=== PATIENT | female | born 1950 | race Caucasian/White ===

== ENCOUNTER 2018-07-06 15:43 | Emergency (ER) | payer MEDICARE, SELFPAY ==
[2018-07-06 15:47] VITALS: BP 150/77; PULSE 87; RESP 18; TEMP 36.7; O2SAT 97; BMI 47.3
[2018-07-06] MEDS: Acetaminophen 500 MG Tablet 1000 MG PO (16:06)
--- NOTE | 2018-07-06 16:24 | RAD_ITS ---
STUDY: X-RAY - LEFT FEMUR REASON FOR STUDY: Female, 67 years old. Pain after a fall TECHNIQUE: 4 view(s) of the femur. COMPARISON: None. FINDINGS: Normal visualized femur. Normal visualized soft tissue structure. 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
--- NOTE | 2018-07-06 16:24 | RAD_ITS ---
STUDY: X-RAY - LEFT HIP REASON FOR EXAM: Female, 67 years old. Pain after fall TECHNIQUE: 3 views of the hip. COMPARISON: None. FINDINGS: Bilateral SI joint arthrosis Normal femoral head, neck, intertrochanteric region and visualized proximal femur. Normal acetabulum. There is moderate articular joint space narrowing. Normal visualized superior and inferior pubic rami and ischial tuberosities. Similar arthritic changes noted in the right hip. RAD/HIP, UNI W/ Pelvis 2-3 Views IMPRESSION: Bilateral hip and SI joint arthrosis. No demonstrated fracture. However, hip and pelvic fractures in patients of this age can be subtle, if there are strong clinical suspicion of a fracture, recommend further evaluation with CT Electronically Signed: Jarred Rojas MD at 16:54 EST , Service support ,
--- NOTE | 2018-07-06 16:24 | RAD_ITS ---
STUDY: X-RAY - LEFT KNEE REASON FOR EXAM: Female, 67 years old. Pain after a fall TECHNIQUE: 3 view(s) of the knee. COMPARISON: None. FINDINGS: Normal visualized distal femur. Normal visualized proximal tibia and fibula. Normal proximal tibiofibular articulation. There is moderate degenerative arthrosis of the medial femorotibial compartment with moderate joint space narrowing. Normal lateral femorotibial compartment. There is mild degenerative arthrosis of the patellofemoral articulation. The soft tissue structures are unremarkable. RAD/Knee 3 Views IMPRESSION: Degenerative arthrosis. Electronically Signed: Jarred Rojas MD at 16:53 EST , Service support ,
--- NOTE | 2018-07-06 16:42 | ED.DCSUM_ITS ---
- ER Visit Summary Date of Service: 07/06/18 Chief Complaint: Left leg injury History of Present Illness: The patient is a 67 F presenting for evaluation secondary to left leg injury. Patient reports that she was going over a threshold and slipped, and went to [employer] when she fell. Patient reports that she has pain in her left leg and thigh. She was able to get to her knees, as it was actually able to ambulate a short distance. She states that pain seems to get worse when she twists about her knee. Denies any numbness or weakness. She denies hitting her head or loss of consciousness. She is not any sort of anticoagulants. Review of systems otherwise negative. Physical Examination: Primary survey: Airway is patent, breath sounds equal bilateral, central peripheral pulses 2+ and symmetric, GCS 15 out of 15. Vitals within normal limits. Secondary survey: General: Well-nourished well-developed no acute distress Head: Normocephalic atraumatic Eyes: PERRLA, EOMI ENT: Atraumatic Neck: Nontender full range of motion, no step-offs noted Heart: Regular rate and rhythm no murmurs Lungs: Respirations nondistressed, lung sounds clear to auscultation bilaterally, chest nontender, normal chest excursion bilaterally Abdomen: Soft nontender nondistended normal bowel sounds no palpable abdominal masses Back: Nontender no step-offs noted Extremities: Left lower extremity shows tenderness to palpation in the posterior thigh with soft compartments. No pain with logroll. Normal flexion and extension of the hip flexion extension the knee dorsiflexion plantarflexion of the foot. Normal sensation distally. Normal pulses. Skin: Normal color no trauma Neuro: Alert and oriented ?4, GCS 15 out of 15, no lateralizing neurological deficits. Test Results: Left-sided hip femur and knee x-rays are negative by my personal review and radiology Emergency Department Course and Treatment: Patient presented secondary to mechanical fall. Primary and secondary surveys showed only injury to the left lower extremity. X-rays were obtained and were found to be negative. Patient was ambulated with walker in the emergency department and given Tylenol. She was able to ambulate, and she had some symptomatic improvement. At this point I believe the patient can safely be discharged. She will be discharged with instructions to use Tylenol and ibuprofen for pain, to use her walker for stability and to follow-up with her primary care physician. Disposition: Discharge Impression: 1. Left thigh strain This note was generated with [employer] dictation software. It may contain incorrect words, spelling, and punctuation that were not noted in review of the chart prior to signing ED Disposition - Plan for ED Patient: Disposition: Home or Assisted Living Chief Complaint: Lower Extremity Injury Diagnosis: Strain of left hip and thigh Instructions: ED Strain Muscle Ext Referrals: Jad Pederson MD [Primary Care Provider] - 3-5 Days if not improving
[2018-07-06 18:05] VITALS: PULSE 81; RESP 18; O2SAT 99
== END 2018-07-06 18:06 | disposition home or self-care (01) ==
PROVIDERS: Emergency Provider Emergency Medicine; Family Provider Family Medicine; PCP Family Medicine
DX: S76.312A Strain of muscle, fascia and tendon of the posterior muscle group at thigh level, left thigh, initial encounter (principal); W01.0XXA Fall on same level from slipping, tripping and stumbling without subsequent striking against object, initial encounter; Y93.89 Activity, other specified; Y92.9 Unspecified place or not applicable; I10 Essential (primary) hypertension; K21.9 Gastro-esophageal reflux disease without esophagitis; Z79.899 Other long term (current) drug therapy
CPT/HCPCS: 73502; 73552; 73562; 99284

== ENCOUNTER 2025-04-02 17:11 | Emergency (ER) | payer MEDICARE, SELFPAY ==
[2025-04-02 17:12] VITALS: BP 163/151; PULSE 80; RESP 14; TEMP 36.4; O2SAT 98; BMI 39.2
[2025-04-02 17:23] VITALS: BP 167/82; PULSE 79; RESP 14; O2SAT 96
--- NOTE | 2025-04-02 17:29 | ED.RN ---
PT. FRIEND JACKSON CALLED AT THIS TIME AND PROVIDED W/ AN UPDATE PER PT. REQUEST.
--- OUTSIDE RECORDS SUMMARY | 2025-04-02 18:38 | XMS RPT_ITS | CCD ---
Author Organization [facility] Inform ion Partnership [facility] Care Team Providers Care Curber Name Role Phone STEF, DR HANNAH Bahena Attending Unavaila ble STEF, DR HANNAH Bahena Primary Care Unavaila ble STEF, DR HANNAH Bahena Admitting Unavaila ble STEF, DR HANNAH Bahena Attending Unavaila ble STEF, DR HANNAH Bahena Primary Care Unavaila ble STEF, DR HANNAH Bahena Admitting Unavaila SULEIMAN Villeda MD Primary Care Physician SULEIMAN PRESTON MD Primary Care Unavailable SULEIMAN PRESTON MD Attending Unavailable SLUEIMAN PRESTON MD Attending Unavailable SULEIMAN PRESTON MD Primary Care Unavailable SULEIMAN PRESTON MD Primary Care Unavailable SULEIMAN PRESTON MD Attending Unavailable SULEIMAN PRESTON MD Primary Care Unavailable GLENYS ALLEN DO Attending Unavailable SULEIMAN PRESTON MD Attending Unavailable SULEIMAN PRESTON MD Primary Care Unavailable SULEIMAN PRESTON MD Primary Care Unavailable SULEIMAN PRESTON MD Attending Unavailable SULEIMAN PRESTON MD Attending Unavailable SULEIMAN PRESTON MD Primary Care Unavailable Allergies Allergy Classification Reported Allergen(s) Allergy Type Date of Onset Reaction(s) Facility (8 sources) Sulfonamides (Antibiotic); Translations: [sulfa drugs] Drug allergy as a child unsure of reaction [facility] Work Phone: Medications Current Medications Medication Drug Class(es) Dates Sig (Normalized) Sig (Original) amLODIPine 5 mg oral tablet (7 sources) Dihydropyridine Calcium Channel Teresa Start: 02-06-2024 take 1 tablet by mouth once daily amLODIPine 5 mg oral tablet See Instructions, TAKE ONE TABLET BY MOUTH EVERY DAY, # 100 tab(s), 1 Refill(s), Pharmacy: [facility], 160, cm, 09/07/23 13:39:00 EDT, Height, kg, 09/07/23 13:39:00 EDT, Dosing Weight Start Date: 02/06/24 Status: Ordered Start: 01-27-2023 take 1 tablet by tim th once daily amLODIPine 5 mg oral tablet See Instructions, TAKE ONE TABLET BY MOUTH EVERY DAY, # 90 tab(s), 1 Refill(s), Pharmacy: [facility], 160, cm, 10/26/22 17:13:00 EDT, Height, kg, 10/26/22 17:13:00 EDT, Dosing Weight Start Date: 01/27/23 Status: Ordered Start: 07-26-2022 take 1 tablet by tim th once daily amLODIPine 5 mg oral tablet See Instructions, TAKE ONE TABLET BY MOUTH EVERY DAY, # 90 tab(s), 1 Refill(s), Pharmacy: [place] [id number], 160, cm, 05/10/22 14:09:00 EST, Height, kg, 05/10/22 14:09:00 EST, Dosing Weight Start Date: 07/26/22 Status: Ordered Start: 04-19-2022 take 1 tablet by tim th once daily amLODIPine 5 mg oral tablet See Instructions, TAKE ONE TABLET BY MOUTH EVERY DAY, # 90 tab(s), 0 Refill(s), Pharmacy: [place] [id number], 160, cm, 03/30/22 16:17:00 EDT, Height, kg, 03/30/22 16:17:00 EDT, Dosing Weight Start Date: 04/19/22 Status: Ordered Start: 10-08-2021 take 1 tablet by tim th once daily amLODIPine 5 mg oral tablet See Instructions, TAKE ONE TABLET BY MOUTH EVERY DAY, # 90 tab(s), 0 Refill(s), Pharmacy: [facility], 159, cm, 09/30/21 13:45:00 EDT, Height, kg, 09/30/21 13:45:00 EDT, Dosing Weight Start Date: 10/08/21 Status: Ordered Start: 03-22-2021 take 1 tablet by tim th once daily amLODIPine 5 mg oral tablet See Instructions, TAKE ONE TABLET BY MOUTH EVERY DAY, # 90 tab(s), 0 Refill(s), Pharmacy: [facility], 160, cm, 03/22/21 13:16:00 EDT, Height, kg, 03/22/21 13:16:00 EDT, Dosing Weight Start Date: 03/22/21 Status: Ordered aspirin 81 mg delayed release oral tablet (8 sources) Platelet Aggregation Inhibitor, Nonsteroidal Anti-inflammatory Drug Start: 04-03-2019 aspirin 81 mg ora l delayed release tablet Dose : 81 mg = 1 tab(s), Oral, qDay, # 90 tab(s), 0 Refill(s) Start Date: 04/03/19 Status: Ordered Medication Dispense Status: Completed Quantity: 90.0 Unit: tab(s) Total Allowed Fills: 1 Fills Dispensed: 0 citalopram 40 mg oral tablet (8 sources) Serotonin Reuptake Inhibitor Start: 08-06-2024 citalopram 40 mg oral tablet Dose : 40 mg = 1 tab(s), Oral, qDay, # 90 tab(s), 3 Refill(s), Pharmacy: [facility], 160, cm, 03/07/24 14:31:00 EDT, Height, kg, 03/07/24 14:31:00 EDT, Dosing Weight Start Date: 08/06/24 Status: Ordered Medication Dispense Status: Completed Quantity: 90.0 Unit: tab(s) Total Allowed Fills: 4 Fills Dispensed: 0 Start: 08-01-2023 citalopram 40 mg oral tablet Dose : 40 mg = 1 tab(s), Oral, qDay, # 90 tab(s), 3 Refill(s), Pharmacy: [facility], 160, cm, 07/26/23 13:53:00 EST, Height, kg, 07/26/23 13:53:00 EST, Dosing Weight Start Date: 08/01/23 Status: Ordered Start: 07-26-2022 citalopram 40 mg oral tablet Dose : 40 mg = 1 tab(s), Oral, qDay, # 90 tab(s), 3 Refill(s), Pharmacy: [facility], 160, cm, 05/10/22 14:09:00 EST, Height, kg, 05/10/22 14:09:00 EST, Dosing Weight Start Date: 07/26/22 Status: Ordered Start: 06-30-2021 citalopram 40 mg oral tablet Dose : 40 mg = 1 tab(s), Oral, qDay, # 90 tab(s), 3 Refill(s), Pharmacy: [facility], 160, cm, 03/22/21 13:16:00 EDT, Height, kg, 03/22/21 13:16:00 EDT, Dosing Weight Start Date: 06/30/21 Status: Ordered Elderberry preparation (3 sources) Start: 03-09-2023 take 1 mg by mouth once daily elderberry See Instructions, mg Oral qDay, 0 Refill(s) Start Date: 03/09/23 Status: Ordered Medication Dispense Status: Completed Total Allowed Fills: 1 Fills Dispensed: 0 Start: 03-09-2023 take 1 mg by mouth once daily elderberry See Instructions, mg Oral qDay, 0 Refill(s) Start Date: 03/09/23 Status: Ordered hydroCHLOROthiazide 12.5 mg oral capsule (6 sources) Thiazide Diuretic Start: 09-21-2021 End: 09-01-2024 hydroCHLOROthiazide 12.5 mg oral capsule Dose : 12.5 mg = 1 cap(s), Oral, Daily, # 90 cap(s), 3 Refill(s), Pharmacy: [facility], Benign essential hypertension GERD (gastroesophageal reflux disease), 160, cm, 09/07/23 13:39:00 EDT, Height, kg, 09/07/23 13:39:00 EDT, Dosing Weight Start Date: 09/07/23 Stop Date: 09/01/24 Status: Ordered lisinopril 20 mg oral tablet (8 sources) Angiotensin Converting Enzyme Inhibitor Start: 08-06-2024 lisinopril 20 mg oral tablet Dose : 20 mg = 1 tab(s), Oral, qDay, # 90 tab(s), 3 Refill(s), Pharmacy: [facility], 160, cm, 03/07/24 14:31:00 EDT, Height, kg, 03/07/24 14:31:00 EDT, Dosing Weight Start Date: 08/06/24 Status: Ordered Medication Dispense Status: Completed Quantity: 90.0 Unit: tab(s) Total Allowed Fills: 4 Fills Dispensed: 0 Start: 08-01-2023 lisinopril 20 mg oral tablet Dose : 20 mg = 1 tab(s), Oral, qDay, # 90 tab(s), 3 Refill(s), Pharmacy: [facility], 160, cm, 07/26/23 13:53:00 EST, Height, kg, 07/26/23 13:53:00 EST, Dosing Weight Start Date: 08/01/23 Status: Ordered Start: 07-26-2022 lisinopril 20 mg oral tablet Dose : 20 mg = 1 tab(s), Oral, qDay, # 90 tab(s), 3 Refill(s), Pharmacy: [facility], 160, cm, 05/10/22 14:09:00 EST, Height, kg, 05/10/22 14:09:00 EST, Dosing Weight Start Date: 07/26/22 Status: Ordered Start: 06-30-2021 lisinopril 20 mg oral tablet Dose : 20 mg = 1 tab(s), Oral, qDay, # 90 tab(s), 3 Refill(s), Pharmacy: [facility], 160, cm, 03/22/21 13:16:00 EDT, Height, kg, 03/22/21 13:16:00 EDT, Dosing Weight Start Date: 06/30/21 Status: [place] [facility] [place] (6 sources) Start: 11-11-2020 [facility] [place] elderberry, 0 Refill(s), 111.4 Start Date: 11/11/20 Status: Ordered omeprazole 20 mg delayed release oral capsule (8 sources) Proton Pump Inhibitor Start: 08-06-2024 omeprazo le 20 mg oral delayed release capsule Dose : 20 mg = 1 cap(s), Oral, qDay, # 90 cap(s), 3 Refill(s), Pharmacy: [facility], 160, cm, 03/07/24 14:31:00 EDT, Height, kg, 03/07/24 14:31:00 EDT, Dosing Weight Start Date: 08/06/24 Status: Ordered Medication Dispense Status: Completed Quantity: 90.0 Unit: cap(s) Total Allowed Fills: 4 Fills Dispensed: 0 Start: 08-01-2023 omeprazole 20 mg oral delayed release capsule Dose : 20 mg = 1 cap(s), Oral, qDay, # 90 cap(s), 3 Refill(s), Pharmacy: [facility], 160, cm, 07/26/23 13:53:00 EST, Height, kg, 07/26/23 13:53:00 EST, Dosing Weight Start Date: 08/01/23 Status: Ordered Start: 07-26-2022 omeprazole 20 mg oral delayed release capsule Dose : 20 mg = 1 cap(s), Oral, qDay, # 90 cap(s), 3 Refill(s), Pharmacy: [facility], 160, cm, 05/10/22 14:09:00 EST, Height, kg, 05/10/22 14:09:00 EST, Dosing Weight Start Date: 07/26/22 Status: Ordered Start: 06-30-2021 omeprazole 20 mg oral delayed release capsule Dose : 20 mg = 1 cap(s), Oral, qDay, # 90 cap(s), 3 Refill(s), Pharmacy: [place] [id number], 160, cm, 03/22/21 13:16:00 EDT, Height, kg, 03/22/21 13:16:00 EDT, Dosing Weight Start Date: 06/30/21 Status: Ordered 24 hr oxybutynin chloride 15 mg extended release oral tablet (7 sources) Cholinergic Muscarinic Antagonist Start: 02-06-2024 End: 08-24-2024 take 1 tablet by mouth every hour, then take 1 tablet by mouth once daily oxybutynin 15 mg/24 hr oral tablet, extended release Dose : 15 mg = 1 tab(s), Oral, qDay, # 100 tab(s), 1 Refill(s), Pharmacy: [place] [id number], 160, cm, 09/07/23 13:39:00 EDT, Height, kg, 09/07/23 13:39:00 EDT, Dosing Weight Start Date: 02/06/24 Stop Date: 08/24/24 Status: Ordered Start: 01-27-2023 End: 07-26-2023 take 1 tablet by mouth every hour, then take 1 tablet by mouth once daily oxybutynin 15 mg/24 hr oral tablet, extended release Dose : 15 mg = 1 tab(s), Oral, qDay, # 90 tab(s), 1 Refill(s), Pharmacy: [facility], 160, cm, 10/26/22 17:13:00 EDT, Height, kg, 10/26/22 17:13:00 EDT, Dosing Weight Start Date: 01/27/23 Stop Date: 07/26/23 Status: Ordered Start: 07-26-2022 End: 01-22-2023 take 1 tablet by mouth every hour, then take 1 tablet by mouth once daily oxybutynin 15 mg/24 hr oral tablet, extended release Dose : 15 mg = 1 tab(s), Oral, qDay, # 90 tab(s), 1 Refill(s), Pharmacy: [facility], 160, cm, 05/10/22 14:09:00 EST, Height, kg, 05/10/22 14:09:00 EST, Dosing Weight Start Date: 07/26/22 Stop Date: 01/22/23 Status: Ordered Start: 04-19-2022 End: 07-18-2022 take 1 tablet by mouth every hour, then take 1 tablet by mouth once daily oxybutynin 15 mg/24 hr oral tablet, extended release Dose : 15 mg = 1 tab(s), Oral, qDay, # 90 tab(s), 0 Refill(s), Pharmacy: [facility], 160, cm, 03/30/22 16:17:00 EDT, Height, kg, 03/30/22 16:17:00 EDT, Dosing Weight Start Date: 04/19/22 Stop Date: 07/18/22 Status: Ordered Start: 03-22-2021 End: 03-17-2022 take 1 tablet by mouth every hour, then take 1 tablet by mouth once daily oxybutynin 15 mg/24 hr oral tablet, extended release Dose : 15 mg = 1 tab(s), Oral, qDay, # 90 tab(s), 3 Refill(s), Pharmacy: [facility], 160, cm, 03/22/21 13:16:00 EDT, Height, kg, 03/22/21 13:16:00 EDT, Dosing Weight Start Date: 03/22/21 Stop Date: 03/17/22 Status: Ordered simvastatin 40 mg oral tablet (7 sources) HMG-CoA Reductase Inhibitor Start: 08-06-2024 simvastatin 40 mg or al tablet Dose : 40 mg = 1 tab(s), Oral, qHS, # 90 tab(s), 3 Refill(s), Pharmacy: [facility], 160, cm, 03/07/24 14:31:00 EDT, Height, kg, 03/07/24 14:31:00 EDT, Dosing Weight Start Date: 08/06/24 Status: Ordered Medication Dispense Status: Completed Quantity: 90.0 Unit: tab(s) Total Allowed Fills: 4 Fills Dispensed: 0 Start: 08-01-2023 simvastatin 40 mg oral tablet Dose : 40 mg = 1 tab(s), Oral, qHS, # 90 tab(s), 3 Refill(s), Pharmacy: [facility], 160, cm, 07/26/23 13:53:00 EST, Height, kg, 07/26/23 13:53:00 EST, Dosing Weight Start Date: 08/01/23 Status: Ordered Start: 07-26-2022 simvastatin 40 mg oral tablet Dose : 40 mg = 1 tab(s), Oral, qHS, # 90 tab(s), 3 Refill(s), Pharmacy: [facility], 160, cm, 05/10/22 14:09:00 EST, Height, kg, 05/10/22 14:09:00 EST, Dosing Weight Start Date: 07/26/22 Status: Ordered Start: 06-30-2021 simvastatin 40 mg oral tablet Dose : 40 mg = 1 tab(s), Oral, qHS, # 90 tab(s), 3 Refill(s), Pharmacy: [facility], 160, cm, 03/22/21 13:16:00 EDT, Height, kg, 03/22/21 13:16:00 EDT, Dosing Weight Start Date: 06/30/21 Status: Ordered Tylenol 8 HR Arthritis Pain (5 sources) Start: 03-25-2022 take 1 mg by mouth every eight hours Tylenol 8 HR Arthritis Pain mg =, Oral, q8h, 0 Refill(s) Start Date: 03/25/22 Status: Ordered Medication Dispense Status: Completed Total Allowed Fills: 1 Fills Dispensed: 0 Start: 03-25-2022 take 1 mg by mouth e very eight hours Tylenol 8 HR Arthritis Pain mg =, Oral, q8h, 0 Refill(s) Start Date: 03/25/22 Status: Ordered Completed/Discontinued Medications Medication Drug Class(es) Dates Sig (Normalized) Sig (Original) tiZANidine 4 mg oral tablet (1 source) Central alpha-2 Adrenergic Agonist Start: 11-15-2024 End: 11-29-2024 tiZANidine 4 mg oral tablet Dose : 4 mg = 1 tab(s), Oral, q8h, PRN as needed for muscle spasm, # 40 tab(s), 0 Refill(s), Pharmacy: [facility], Low back pain Muscle spasm of left calf, 160, cm, 11/15/24 13:26:00 EDT, Height, kg, 11/15/24 13:26:00 EDT, Dosing Weight Start Date: 11/15/24 Stop Date: 11/29/24 Status: Ordered Medication Dispense Status: Completed Quantity: 40.0 Unit: tab(s) Total Allowed Fills: 1 Fills Dispensed: 0 Indications: Low back pain, unspecified; Muscle spasm of calf; Vitamin D2 1.25 mg (50,000 intl units) oral capsule (2 sources) Start: 05-10-2022 End: 05-05-2023 Vitamin D2 1.25 mg (50,000 intl units) oral capsule Dose : 50,000 International_Unit = 1 cap(s), Oral, qWeek, # 5 cap(s), 11 Refill(s), Pharmacy: [facility], Vitamin D deficiency, 160, cm, 05/10/22 14:09:00 EST, Height Start Date: 05/10/22 Stop Date: 05/05/23 Status: Ordered Problems Problem Classification Problem Date Documented Date Episodic/Chronic Administrative/socia l admission (1 source) Family tension 10-16-2024 Episodic Anxiety disorders (8 sources) Anxiety 11-14-2016 Chronic Disorders of lipid metabolism (16 sources) Hypercholesterolemia; Translations: [Mixed hyperlipidemia] 04-03-2019 Chronic Esophageal disorders (8 sources) Gastroesophageal reflux disease 11-14-2016 Chronic Essential hypertension (11 sources) Benign essential hypertension; Translations: [Hypertensive disorder] 04-03-2019 Chronic Mood disorders (8 sources) Moderate depression 04-03-2019 Chronic Other connective tissue disease (1 source) Pain in right arm; Translations: [Pain in right arm] Onset: 06-03-2023 Episodic Other connective tissue disease (1 source) Spasm 11-15-2024 Episodic Other diseases of bladder and urethra (8 sources) 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 Other non-traumatic joint disorders (4 sources) Shoulder pain 09-06-2022 Episodic Other non-traumatic joint disorders (1 source) Pain of left hip joint; Translations: [Pain in left hip] Onset: 06-03-2023 Episodic Other nutritional; endocrine; and metabolic disorders (5 sources) Body mass index 40+ - severely obese 04-22-2022 Chronic Other nutritional; endocrine; and metabolic disorders (5 sources) Morbid obesity 04-22-2022 Chronic Other skin disorders (4 sources) Inflammatory dermatosis 05-10-2022 Episodic Other upper respiratory infections (4 sources) Sinusitis 05-10-2022 Chronic Residual codes; unclassified (7 sources) Swelling - edema - symptom 09-21-2021 Episodic Spondylosis; intervertebral disc disorders; other back problems (4 sources) Lumbar radiculitis; Translations: [Low back pain] 10-26-2022 Episodic Unclassified (2 sources) Injury of right rotator cuff 07-26-2023 Viral infection (5 sources) Varicella-zoster virus infection 03-30-2022 Episodic Viral infection (5 sources) Disease caused by 2019-nCoV 04-22-2022 Results Test Name Value Interpretation Reference Range Facility .Auto Diffon 03-06-2025 Basophil, Absolute 0.1 10 3/mcL Normal 0.0-0.3 [facility] Comment on above: Performed By: #### C MP, MORPH, GFR, ADIFF, CBC, A1C, FERR, ANEU, LIPID, TSH #### [place] [id number] [place], [place] [address] Basophils/100 WBC (Bld) 0.7 % Normal 0.0-2.5 [facility] Comment on above: Performed By: #### C MP, MORPH, GFR, ADIFF, CBC, A1C, FERR, ANEU, LIPID, TSH #### [place] [id number] [place], [place] [address] Eosinophil, Absolute 0.3 10 3/mcL Normal 0.0-0.7 [facility] Comment on above: Performed By: #### C MP, MORPH, GFR, ADIFF, CBC, A1C, FERR, ANEU, LIPID, TSH #### [address] [address] Eosinophils/100 WBC (Bld) 3.0 % Normal 0.0-6.0 [facility] Comment on above: Performed By: #### C MP, MORPH, GFR, ADIFF, CBC, A1C, FERR, ANEU, LIPID, TSH #### [address] [address] Lymphocyte, Absolute 1.3 10 3/mcL Normal 0.9-4.3 [facility] Comment on above: Performed By: #### C MP, MORPH, GFR, ADIFF, CBC, A1C, FERR, ANEU, LIPID, TSH #### [address] [address] Lymphocytes/100 WBC (Bld) 14.4 % Low 20.0-40.0 [facility] Comment on above: Performed By: #### C MP, MORPH, GFR, ADIFF, CBC, A1C, FERR, ANEU, LIPID, TSH #### [address] [address] Monocyte, Absolute 0.7 10 3/mcL Normal 0.1-1.4 [facility] Comment on above: Performed By: #### C MP, MORPH, GFR, ADIFF, CBC, A1C, FERR, ANEU, LIPID, TSH #### [address] [address] Monocytes/100 WBC (Bld) 7.6 % Normal 2.0-13.0 [facility] Comment on above: Performed By: #### C MP, MORPH, GFR, ADIFF, CBC, A1C, FERR, ANEU, LIPID, TSH #### [address] [address] Neutrophils/100 WBC (Bld) 74.3 % Normal 50.0-75.0 [facility] Comment on above: Performed By: #### C MP, MORPH, GFR, ADIFF, CBC, A1C, FERR, ANEU, LIPID, TSH #### [address] [address] .GFRon 03-06-2025 Estimated Glomerular Filtration Rate 81 ml/min/1.73sqm Normal [facility] Comment on above: Result Comment: Stages of Chronic Kidney Disease (CKD) Stage Description eGFR(ml/min/1.73 sq.m.) CKD 1 Normal kidney function or >=90 normal kindney function with possible kidney damage (ex. Proteinuria) CKD 2 Kidney damage with mild loss 60-89 of kidney function CKD 3a Mild to moderate loss of kidney 45-59 function CKD 3b Moderate to severe loss of 30-44 of kindey function CKD 4 Severe loss of kidney function 15-29 CKD 5 Kidney failure <15 Note: (go live 2024) the eGFR calculation was updated to the 2020 CKD-EPI creatinine equation without a race factor to calculate the eGFR results. Performed By: #### C MP, MORPH, GFR, ADIFF, CBC, A1C, FERR, ANEU, LIPID, TSH #### [address] [address] .Morphon 03-06-2025 Microcytosis 1+ Normal [facility] Comment on above: Performed By: #### C MP, MORPH, GFR, ADIFF, CBC, A1C, FERR, ANEU, LIPID, TSH #### [address] [address] Platelet Estimate Normal Normal [facility] Comment on above: Performed By: #### C MP, MORPH, GFR, ADIFF, CBC, A1C, FERR, ANEU, LIPID, TSH #### [place] [id number] [place], [place] [address] .NEUABSon 03-06-2025 Neutrophil, Absolute 6.7 10 3/mcL Normal 2.3-8.1 [facility] Comment on above: Performed By: #### C MP, MORPH, GFR, ADIFF, CBC, A1C, FERR, ANEU, LIPID, TSH #### [address] [address] A1Con 03-06-2025 Glucose [Mass/Vol] 128 mg/dL Normal [facility] Comment on above: Result Comment: Yolanda mated Average Glucose calculated by equation ((28.7xA1C)-46.7) Estimated average glucose (eAG) is a calculated value from Hemoglobin A1C and is construction sales representative of the average blood glucose level in the last 2-3 month period. Normal range: less than 114 mg/dL Performed By: #### C MP, MORPH, GFR, ADIFF, CBC, A1C, FERR, ANEU, LIPID, TSH #### [address] [address] HbA1c (Bld) [Mass fraction] 6.1 % Normal 4.3-6.4 [facility] Comment on above: Performed By: #### C MP, MORPH, GFR, ADIFF, CBC, A1C, FERR, ANEU, LIPID, TSH #### [address] [address] CBCon 03-06-2025 Erythrocyte distribution width (RBC) [Ratio] 18.0 % High 11.5-15.5 [facility] Comment on above: Performed By: #### C MP, MORPH, GFR, ADIFF, CBC, A1C, FERR, ANEU, LIPID, TSH #### [place] [address] Hematocrit (Bld) [Volume fraction] 34.0 % Normal 34.0-46.0 [facility] Comment on above: Performed By: #### C MP, MORPH, GFR, ADIFF, CBC, A1C, FERR, ANEU, LIPID, TSH #### [address] [address] Hgb 10.6 G/dL Low 12.0-16.0 [facility] Comment on above: Performed By: #### C MP, MORPH, GFR, ADIFF, CBC, A1C, FERR, ANEU, LIPID, TSH #### [address] [address] MCH (RBC) [Entitic mass] 20.6 pg Low 27.0-33.0 [facility] Comment on above: Performed By: #### C MP, MORPH, GFR, ADIFF, CBC, A1C, FERR, ANEU, LIPID, TSH #### [address] [address] MCHC 31.2 G/dL Low 32.0-36.0 [facility] Comment on above: Performed By: #### C MP, MORPH, GFR, ADIFF, CBC, A1C, FERR, ANEU, LIPID, TSH #### [address] [address] MCV (RBC) [Entitic vol] 65.9 fL Low 80.0-99.0 [facility] Comment on above: Performed By: #### C MP, MORPH, GFR, ADIFF, CBC, A1C, FERR, ANEU, LIPID, TSH #### [address] [address] Platelet 318 10 3/mcL Normal 150-450 [facility] Comment on above: Performed By: #### C MP, MORPH, GFR, ADIFF, CBC, A1C, FERR, ANEU, LIPID, TSH #### [address] [address] Platelet mean volume (Bld) [Entitic vol] 8.1 fL Normal 6.6-10.5 [facility] Comment on above: Performed By: #### C MP, MORPH, GFR, ADIFF, CBC, A1C, FERR, ANEU, LIPID, TSH #### [address] [address] RBC 5.17 10 6/mcL Normal 4.10-5.30 [facility] Comment on above: Performed By: #### C MP, MORPH, GFR, ADIFF, CBC, A1C, FERR, ANEU, LIPID, TSH #### [address] [address] WBC 9.0 10 3/mcL Normal 4.5-10.8 [facility] Comment on above: Performed By: #### C MP, MORPH, GFR, ADIFF, CBC, A1C, FERR, ANEU, LIPID, TSH #### [address] [address] CMPon 03-06-2025 Albumin Level 3.3 G/dL Low 3.4-4.8 [facility] Comment on above: Performed By: #### C MP, MORPH, GFR, ADIFF, CBC, A1C, FERR, ANEU, LIPID, TSH #### [place] [address] Albumin/Globulin [Mass ratio] 0.8 {ratio} Low 1.1-2.5 [facility] Comment on above: Performed By: #### C MP, MORPH, GFR, ADIFF, CBC, A1C, FERR, ANEU, LIPID, TSH #### [place] [address] ALP [Catalytic activity/Vol] 65 U/L Normal 40-135 [facility] Comment on above: Performed By: #### C MP, MORPH, GFR, ADIFF, CBC, A1C, FERR, ANEU, LIPID, TSH #### [place] [address] ALT [Catalytic activity/Vol] 13 U/L Low 14-59 [facility] Comment on above: Performed By: #### C MP, MORPH, GFR, ADIFF, CBC, A1C, FERR, ANEU, LIPID, TSH #### [place] [address] AST [Catalytic activity/Vol] 8 U/L Low 10-40 [facility] Comment on above: Performed By: #### C MP, MORPH, GFR, ADIFF, CBC, A1C, FERR, ANEU, LIPID, TSH #### [place] [id number] Bili Total 0.5 mg/dL Normal 0.2-1.0 [facility] Comment on above: Result Comment: Use of this assay is not recommended for patients undergoing treatment with eltrombopag due to the potential for falsely elevated results. Performed By: #### C MP, MORPH, GFR, ADIFF, CBC, A1C, FERR, ANEU, LIPID, TSH #### [place] [address] BUN/Creatinine Ratio 18 ratio Normal 7-27 [facility] Comment on above: Performed By: #### C MP, MORPH, GFR, ADIFF, CBC, A1C, FERR, ANEU, LIPID, TSH #### [address] [address] Calcium [Mass/Vol] 8.9 mg/dL Normal 8.4-10.2 [facility] Comment on above: Performed By: #### C MP, MORPH, GFR, ADIFF, CBC, A1C, FERR, ANEU, LIPID, TSH #### [address] [address] Chloride [Moles/Vol] 103 mmol/L Normal 98-107 [facility] Comment on above: Performed By: #### C MP, MORPH, GFR, ADIFF, CBC, A1C, FERR, ANEU, LIPID, TSH #### [place] [address] CO2 [Moles/Vol] 34 mmol/L High 23-31 [facility] Comment on above: Performed By: #### C MP, MORPH, GFR, ADIFF, CBC, A1C, FERR, ANEU, LIPID, TSH #### [place] [address] Creatinine [Mass/Vol] 0.77 mg/dL Normal 0.51-0.95 [facility] Comment on above: Performed By: #### C MP, MORPH, GFR, ADIFF, CBC, A1C, FERR, ANEU, LIPID, TSH #### [place] [address] Electrolyte Balance 4.0 mEq/L Normal 4.0-15.0 [facility] Comment on above: Performed By: #### C MP, MORPH, GFR, ADIFF, CBC, A1C, FERR, ANEU, LIPID, TSH #### [place] [address] Globulin 3.9 G/dL Normal 2.7-4.4 [facility] Comment on above: Performed By: #### C MP, MORPH, GFR, ADIFF, CBC, A1C, FERR, ANEU, LIPID, TSH #### [address] [address] Glucose [Mass/Vol] 105 mg/dL Normal 83-110 [facility] Comment on above: Performed By: #### C MP, MORPH, GFR, ADIFF, CBC, A1C, FERR, ANEU, LIPID, TSH #### [address] [address] Potassium [Moles/Vol] 3.6 mmol/L Normal 3.5-5.1 [facility] Comment on above: Performed By: #### C MP, MORPH, GFR, ADIFF, CBC, A1C, FERR, ANEU, LIPID, TSH #### [address] [address] Sodium [Moles/Vol] 141 mmol/L Normal 136-145 [facility] Comment on above: Performed By: #### C MP, MORPH, GFR, ADIFF, CBC, A1C, FERR, ANEU, LIPID, TSH #### [address] [address] Total Protein 7.2 G/dL Normal 6.4-8.2 [facility] Comment on above: Performed By: #### C MP, MORPH, GFR, ADIFF, CBC, A1C, FERR, ANEU, LIPID, TSH #### [address] [address] Urea nitrogen [Mass/Vol] 14 mg/dL Normal 7-18 [facility] Comment on above: Performed By: #### C MP, MORPH, GFR, ADIFF, CBC, A1C, FERR, ANEU, LIPID, TSH #### [address] [address] Fredy 03-06-2025 Ferritin [Mass/Vol] 8.0 ng/mL Normal 8.0-252.0 [facility] Comment on above: Performed By: #### C MP, MORPH, GFR, ADIFF, CBC, A1C, FERR, ANEU, LIPID, TSH #### [address] [address] LABORATORYOrdered By: SYSTEM SYSTEM on 03-06-2025 Albumin BCP dye [Mass/Vol] 3.3 G/dL Low 3.4 - 4.8 G/dL AO ADM SS Albumin/Globulin [Mass ratio] 0.8 {ratio} Low 1.1 - 2.5 ratio AO ADM SS ALP [Catalytic activity/Vol] 65 U/L Normal 40 - 135 U/L AO ADM SS ALT With P-5'-P [Catalytic activity/Vol] 13 U/L Low 14 - 59 U/L AO ADM SS AST With P-5'-P [Catalytic activity/Vol] 8 U/L Low 10 - 40 U/L AO ADM SS Basophils (Bld) [#/Vol] 0.1 103/mcL Normal 0.0 - 0.3 10^3/mcL AO Workflow SS Basophils/100 WBC (Bld) 0.7 % Normal 0.0 - 2.5 % AO Workflow SS Bilirubin [Mass/Vol] 0.5 mg/dL Normal 0.2 - 1 .0 mg/dL AO ADM SS Comment on above: Interpretive Data: U se of this assay is not recommended for patients undergoing treatment with eltrombopag due to the potential for falsely elevated results. Calcium [Mass/Vol] 8.9 mg/dL Normal 8.4 - 10. 2 mg/dL AO ADM SS Chloride [Moles/Vol] 103 mmol/L Normal 98 - 10 7 mmol/L AO ADM SS CO2 [Moles/Vol] 34 mmol/L High 23 - 31 mmol/L AO ADM SS Creatinine [Mass/Vol] 0.77 mg/dL Normal 0.51 - 0.95 mg/dL AO ADM SS Electrolyte Balance 4.0 mEq/L Normal 4.0 - 15 .0 mEq/L AO ADM SS Eosinophil, Absolute 0.3 103/mcL Normal 0.0 - 0 .7 10^3/mcL AO Workflow SS Eosinophils/100 WBC (Bld) 3.0 % Normal 0.0 - 6.0 % AO Workflow SS Erythrocyte distribution width (RBC) [Ratio] 18.0 % High 11.5 - 15.5 % AO Workflow SS Estimated Glomerular Filtration Rate 81 ml/min/1.73sqm Invalid Interpretation Code AO Chemistry S Comment on above: Interpretive Data: Stages of Chronic Kidney Disease (CKD) Stage Description eGFR(ml/min/1.73 sq.m.) CKD 1 Normal kidney function or >=90 normal kindney function with possible kidney damage (ex. Proteinuria) CKD 2 Kidney damage with mild loss 60-89 of kidney function CKD 3a Mild to moderate loss of kidney 45-59 function CKD 3b Moderate to severe loss of 30-44 of kindey function CKD 4 Severe loss of kidney function 15-29 CKD 5 Kidney failure <15 Note: (go live 2024) the eGFR calculation was updated to the 2020 CKD-EPI creatinine equation without a race factor to calculate the eGFR results. Ferritin [Mass/Vol] 8.0 ng/mL Normal 8.0 - 25 2.0 ng/mL AO ADM SS Globulin 3.9 G/dL Normal 2.7 - 4.4 G/dL AO ADM SS Glucose [Mass/Vol] 128 mg/dL Invalid Interpretation Code AO Chemistry S Comment on above: Interpretive Data: E stimated average glucose (eAG) is a calculated value from Hemoglobin A1C and is construction sales representative of the average blood glucose level in the last 2-3 month period. Normal range: less than 114 mg/dL Glucose [Mass/Vol] 105 mg/dL Normal 83 - 110 mg/dL AO ADM SS HbA1c (Bld) [Mass fraction] 6.1 % Normal 4.3 - 6.4 % AO ADM SS Hematocrit (Bld) [Volume fraction] 34.0 % Normal 34.0 - 46.0 % AO Workflow SS Hemoglobin (Bld) [Mass/Vol] 10.6 G/dL Low 12.0 - 16.0 G/dL AO Workflow SS Lymphocytes (Bld) [#/Vol] 1.3 103/mcL Normal 0.9 - 4.3 10^3/mcL AO Workflow SS Lymphocytes/100 WBC (Bld) 14.4 % Low 20.0 - 40.0 % AO Workflow SS MCH (RBC) [Entitic mass] 20.6 pg Low 27.0 - 33.0 pg AO Workflow SS MCHC 31.2 G/dL Low 32.0 - 36.0 G/dL AO Workflow SS MCV (RBC) [Entitic vol] 65.9 fL Low 80.0 - 99.0 fL AO Workflow SS Microcytes Ql (Bld) 1+ *NA* (03/06/25 8:24 AM) Invalid Interpretation Code AO Workflow SS Monocytes (Bld) [#/Vol] 0.7 103/mcL Normal 0.1 - 1.4 10^3/mcL AO Workflow SS Monocytes/100 WBC (Bld) 7.6 % Normal 2.0 - 13.0 % AO Workflow SS Neutrophils (Bld) [#/Vol] 6.7 103/mcL Normal 2.3 - 8.1 10^3/mcL AO Workflow SS Neutrophils/100 WBC (Bld) 74.3 % Normal 50.0 - 75.0 % AO Workflow SS Platelet mean volume (Bld) [Entitic vol] 8.1 fL Normal 6.6 - 10.5 fL AO Workflow SS Platelets (Bld) [#/Vol] 318 103/mcL Normal 150 - 450 10^3/mcL AO Workflow SS Platelets LM Ql (Bld) Normal *NA* (03/06/25 8:24 AM) Invalid Interpretation Code AO Workflow SS Potassium [Moles/Vol] 3.6 mmol/L Normal 3.5 - 5.1 mmol/L AO ADM SS Protein [Mass/Vol] 7.2 G/dL Normal 6.4 - 8.2 G/dL AO ADM SS RBC (Bld) [#/Vol] 5.17 106/mcL Normal 4.10 - 5.3 0 10^6/mcL AO Workflow SS Sodium [Moles/Vol] 141 mmol/L Normal 136 - 145 mmol/L AO ADM SS TSH Qn 2.04 m[IU]/L Normal 0.36 - 3.74 mcIU/mL AO ADM SS Urea nitrogen [Mass/Vol] 14 mg/dL Normal 7 - 18 mg/dL AO ADM SS Urea nitrogen/Creatinine [Mass ratio] 18 ratio Normal 7 - 27 ratio AO ADM SS WBC (Bld) [#/Vol] 9.0 103/mcL Normal 4.5 - 10.8 10^3/mcL AO Workflow SS LABORATORYOrdered By: Juan Carlos Yap on 03-06-2025 Cholesterol [Mass/Vol] 135 mg/dL Normal 0 - 200 mg/dL AO ADM SS Comment on above: Interpretive Data: C holesterol Reference Interval: Less than 200 Desirable 200-239 Borderline high risk 240 and above High risk Cholesterol in HDL [Mass/Vol] 42 mg/dL Normal 40 - 60 mg/dL AO ADM SS Cholesterol in LDL [Mass/Vol] 73 mg/dL Normal 0 - 130 mg/dL AO ADM SS Triglyceride [Mass/Vol] 101 mg/dL Normal 0 - 150 mg/dL AO ADM SS Comment on above: Interpretive Data: T riglyceride Reference Interval: Less than 150 Normal 150-199 Borderline high risk 200-499 High risk 500 or higher Very high risk LIPIDon 03-06-2025 Cholesterol [Mass/Vol] 135 mg/dL Normal 0-200 [facility] Comment on above: Result Comment: Chol esterol Reference Interval: Less than 200 Desirable 200-239 Borderline high risk 240 and above High risk Performed By: #### C MP, MORPH, GFR, ADIFF, CBC, A1C, FERR, ANEU, LIPID, TSH #### [address] [address] Cholesterol in HDL [Mass/Vol] 42 mg/dL Normal 40-60 [facility] Comment on above: Performed By: #### C MP, MORPH, GFR, ADIFF, CBC, A1C, FERR, ANEU, LIPID, TSH #### [address] [address] Cholesterol in LDL [Mass/Vol] 73 mg/dL Normal 0-130 [facility] Comment on above: Performed By: #### C MP, MORPH, GFR, ADIFF, CBC, A1C, FERR, ANEU, LIPID, TSH #### [address] [address] Triglyceride [Mass/Vol] 101 mg/dL Normal 0-150 [facility] Comment on above: Result Comment: Trig lyceride Reference Interval: Less than 150 Normal 150-199 Borderline high risk 200-499 High risk 500 or higher Very high risk Performed By: #### C MP, MORPH, GFR, ADIFF, CBC, A1C, FERR, ANEU, LIPID, TSH #### [address] [address] TSHon 03-06-2025 TSH Qn 2.04 m[IU]/L Normal 0.36-3.74 [facility] Comment on above: Performed By: #### C MP, MORPH, GFR, ADIFF, CBC, A1C, FERR, ANEU, LIPID, TSH #### [address] [address] .GFRon 08-31-2024 Estimated Glomerular Filtration Rate 93 ml/min/1.73sqm Normal [facility] Comment on above: Result Comment: Stages of Chronic Kidney Disease (CKD) Stage Description eGFR(ml/min/1.73 sq.m.) CKD 1 Normal kidney function or >=90 normal kindney function with possible kidney damage (ex. Proteinuria) CKD 2 Kidney damage with mild loss 60-89 of kidney function CKD 3a Mild to moderate loss of kidney 45-59 function CKD 3b Moderate to severe loss of 30-44 of kindey function CKD 4 Severe loss of kidney function 15-29 CKD 5 Kidney failure <15 Note: (go live 2024) the eGFR calculation was updated to the 2020 CKD-EPI creatinine equation without a race factor to calculate the eGFR results. Performed By: #### C MP, MORPH, GFR, ADIFF, CBC, A1C, FERR, ANEU, LIPID, TSH #### [address] [address] A1Con 08-31-2024 Glucose [Mass/Vol] 131 mg/dL Normal [facility] Comment on above: Result Comment: Yolanda mated Average Glucose calculated by equation ((28.7xA1C)-46.7) Estimated average glucose (eAG) is a calculated value from Hemoglobin A1C and is construction sales representative of the average blood glucose level in the last 2-3 month period. Normal range: less than 114 mg/dL Performed By: #### C MP, MORPH, GFR, ADIFF, CBC, A1C, FERR, ANEU, LIPID, TSH #### [address] [address] HbA1c (Bld) [Mass fraction] 6.2 % Normal 4.3-6.4 [facility] Comment on above: Performed By: #### C MP, MORPH, GFR, ADIFF, CBC, A1C, FERR, ANEU, LIPID, TSH #### [address] [address] CMPon 08-31-2024 Albumin Level 3.5 G/dL Normal 3.4-4.8 [facility] Comment on above: Performed By: #### C MP, MORPH, GFR, ADIFF, CBC, A1C, FERR, ANEU, LIPID, TSH #### [address] [address] Albumin/Globulin [Mass ratio] 1.0 {ratio} Low 1.1-2.5 [facility] Comment on above: Performed By: #### C MP, MORPH, GFR, ADIFF, CBC, A1C, FERR, ANEU, LIPID, TSH #### [address] [address] ALP [Catalytic activity/Vol] 61 U/L Normal 40-135 [facility] Comment on above: Performed By: #### C MP, MORPH, GFR, ADIFF, CBC, A1C, FERR, ANEU, LIPID, TSH #### [place] [address] ALT [Catalytic activity/Vol] 14 U/L Normal 14-59 [facility] Comment on above: Performed By: #### C MP, MORPH, GFR, ADIFF, CBC, A1C, FERR, ANEU, LIPID, TSH #### [place] [address] AST [Catalytic activity/Vol] 20 U/L Normal 10-40 [facility] Comment on above: Performed By: #### C MP, MORPH, GFR, ADIFF, CBC, A1C, FERR, ANEU, LIPID, TSH #### [address] [address] Bili Total 0.4 mg/dL Normal 0.2-1.0 [facility] Comment on above: Result Comment: Use of this assay is not recommended for patients undergoing treatment with eltrombopag due to the potential for falsely elevated results. Performed By: #### C MP, MORPH, GFR, ADIFF, CBC, A1C, FERR, ANEU, LIPID, TSH #### [place] [address] BUN/Creatinine Ratio 29 ratio High 7-27 [facility] Comment on above: Performed By: #### C MP, MORPH, GFR, ADIFF, CBC, A1C, FERR, ANEU, LIPID, TSH #### [place] [id number] Calcium [Mass/Vol] 8.6 mg/dL Normal 8.4-10.2 [facility] Comment on above: Performed By: #### C MP, MORPH, GFR, ADIFF, CBC, A1C, FERR, ANEU, LIPID, TSH #### [address] [address] Chloride [Moles/Vol] 104 mmol/L Normal 98-107 [facility] Comment on above: Performed By: #### C MP, MORPH, GFR, ADIFF, CBC, A1C, FERR, ANEU, LIPID, TSH #### [address] [address] CO2 [Moles/Vol] 30 mmol/L Normal 23-31 [facility] Comment on above: Performed By: #### C MP, MORPH, GFR, ADIFF, CBC, A1C, FERR, ANEU, LIPID, TSH #### [address] [address] Creatinine [Mass/Vol] 0.66 mg/dL Normal 0.55-1.02 [facility] Comment on above: Result Comment: Test ing performed on Siemens Dimension EXL analyzer using a modified kinetic Shikha technique. Performed By: #### C MP, MORPH, GFR, ADIFF, CBC, A1C, FERR, ANEU, LIPID, TSH #### [address] [address] Electrolyte Balance 7.0 mEq/L Normal 4.0-15.0 [facility] Comment on above: Performed By: #### C MP, MORPH, GFR, ADIFF, CBC, A1C, FERR, ANEU, LIPID, TSH #### [address] [address] Globulin 3.6 G/dL Normal 1.5-3.8 [facility] Comment on above: Performed By: #### C MP, MORPH, GFR, ADIFF, CBC, A1C, FERR, ANEU, LIPID, TSH #### [address] [address] Glucose [Mass/Vol] 88 mg/dL Normal 83-110 [facility] Comment on above: Performed By: #### C MP, MORPH, GFR, ADIFF, CBC, A1C, FERR, ANEU, LIPID, TSH #### [address] [address] Potassium [Moles/Vol] 3.7 mmol/L Normal 3.5-5.1 [facility] Comment on above: Performed By: #### C MP, MORPH, GFR, ADIFF, CBC, A1C, FERR, ANEU, LIPID, TSH #### [address] [address] Sodium [Moles/Vol] 141 mmol/L Normal 136-145 [facility] Comment on above: Performed By: #### C MP, MORPH, GFR, ADIFF, CBC, A1C, FERR, ANEU, LIPID, TSH #### [address] [address] Total Protein 7.1 G/dL Normal 6.4-8.2 [facility] Comment on above: Performed By: #### C MP, MORPH, GFR, ADIFF, CBC, A1C, FERR, ANEU, LIPID, TSH #### [address] [address] Urea nitrogen [Mass/Vol] 19 mg/dL High 7-18 [facility] Comment on above: Performed By: #### C MP, MORPH, GFR, ADIFF, CBC, A1C, FERR, ANEU, LIPID, TSH #### [address] [address] LIPIDon 08-31-2024 Cholesterol [Mass/Vol] 150 mg/dL Normal 0-200 [facility] Comment on above: Result Comment: Chol esterol Reference Interval: Less than 200 Desirable 200-239 Borderline high risk 240 and above High risk Performed By: #### C MP, MORPH, GFR, ADIFF, CBC, A1C, FERR, ANEU, LIPID, TSH #### [address] [address] Cholesterol in HDL [Mass/Vol] 45 mg/dL Normal 40-60 [facility] Comment on above: Performed By: #### C MP, MORPH, GFR, ADIFF, CBC, A1C, FERR, ANEU, LIPID, TSH #### [place] [id number] [place], [place] [address] Cholesterol in LDL [Mass/Vol] 78 mg/dL Normal 0-130 [facility] Comment on above: Performed By: #### C MP, MORPH, GFR, ADIFF, CBC, A1C, FERR, ANEU, LIPID, TSH #### [place] [address] [place], [place] [address] Triglyceride [Mass/Vol] 135 mg/dL Normal 0-150 [facility] Comment on above: Result Comment: Trig lyceride Reference Interval: Less than 150 Normal 150-199 Borderline high risk 200-499 High risk 500 or higher Very high risk Performed By: #### C MP, MORPH, GFR, ADIFF, CBC, A1C, FERR, ANEU, LIPID, TSH #### [place] [address] [place], [place] [address] TSHon 08-31-2024 TSH Qn 0.90 m[IU]/L Normal 0.36-3.74 [facility] Comment on above: Performed By: #### C MP, MORPH, GFR, ADIFF, CBC, A1C, FERR, ANEU, LIPID, TSH #### [address] [address] LABORATORYOrdered By: SYSTEM SYSTEM on 03-02-2024 Albumin BCP dye [Mass/Vol] 3.5 G/dL Normal 3.4 - 4.8 G/dL AO ADM SS Albumin/Globulin [Mass ratio] 1.0 {ratio} Low 1.1 - 2.5 ratio AO ADM SS ALP [Catalytic activity/Vol] 59 U/L Normal 40 - 135 U/L AO ADM SS ALT With P-5'-P [Catalytic activity/Vol] 20 U/L Normal 14 - 59 U/L AO ADM SS AST With P-5'-P [Catalytic activity/Vol] 17 U/L Normal 10 - 40 U/L AO ADM SS Bilirubin [Mass/Vol] 0.4 mg/dL Normal 0.2 - 1 .0 mg/dL AO ADM SS Comment on above: Interpretive Data: U se of this assay is not recommended for patients undergoing treatment with eltrombopag due to the potential for falsely elevated results. Calcium [Mass/Vol] 8.8 mg/dL Normal 8.4 - 10. 2 mg/dL AO ADM SS Chloride [Moles/Vol] 102 mmol/L Normal 98 - 10 7 mmol/L AO ADM SS CO2 [Moles/Vol] 30 mmol/L Normal 23 - 31 mmol/L AO ADM SS Creatinine [Mass/Vol] 0.82 mg/dL Normal 0.55 - 1.02 mg/dL AO ADM SS Comment on above: Interpretive Data: T esting performed on Siemens Dimension EXL analyzer using a modified kinetic Shikha technique. Electrolyte Balance 8.0 mEq/L Normal 4.0 - 15 .0 mEq/L AO ADM SS GFR/1.73 sq M.predicted among blacks MDRD (S/P/Bld) [Vol rate/Area] 83 ml/min/1.73sqm Invalid Interpretation Code AO Chemistry S Comment on above: Interpretive Data: GFR Population mean for , Non- Americans Ages 20-29 = 116 mL/min/1.73 sq.m. Ages 30-39 = 107 mL/min/1.73 sq.m. Ages 40-49 = 99 mL/min/1.73 sq.m. Ages 50-59 = 93 mL/min/1.73 sq.m. Ages 60-69 = 85 mL/min/1.73 sq.m. Ages 70+ = 75 mL/min/1.73 sq.m. Chronic Kidney Disease: Less than 60 mL/min/1.73 square meters End Stage Renal Disease: Less than 15 mL/min/1.73 square meters GFR/1.73 sq M.predicted among non-blacks MDRD (S/P/Bld) [Vol rate/Area] 68 ml/min/1.73sqm Invalid Interpretation Code AO Chemistry S Comment on above: Interpretive Data: GFR Population mean for , Non- Americans Ages 20-29 = 116 mL/min/1.73 sq.m. Ages 30-39 = 107 mL/min/1.73 sq.m. Ages 40-49 = 99 mL/min/1.73 sq.m. Ages 50-59 = 93 mL/min/1.73 sq.m. Ages 60-69 = 85 mL/min/1.73 sq.m. Ages 70+ = 75 mL/min/1.73 sq.m. Chronic Kidney Disease: Less than 60 mL/min/1.73 square meters End Stage Renal Disease: Less than 15 mL/min/1.73 square meters Globulin 3.5 G/dL Invalid Interpretation Code AO ADM SS Glucose [Mass/Vol] 131 mg/dL Invalid Interpretation Code AO Chemistry S Comment on above: Interpretive Data: E stimated average glucose (eAG) is a calculated value from Hemoglobin A1C and is construction sales representative of the average blood glucose level in the last 2-3 month period. Normal range: less than 114 mg/dL Glucose [Mass/Vol] 113 mg/dL High 83 - 110 mg/dL AO ADM SS HbA1c (Bld) [Mass fraction] 6.2 % Normal 4.3 - 6.4 % AO ADM SS Potassium [Moles/Vol] 3.8 mmol/L Normal 3.5 - 5.1 mmol/L AO ADM SS Protein [Mass/Vol] 7.0 G/dL Normal 6.4 - 8.2 G/dL AO ADM SS Sodium [Moles/Vol] 140 mmol/L Normal 136 - 145 mmol/L AO ADM SS Urea nitrogen [Mass/Vol] 15 mg/dL Normal 7 - 18 mg/dL AO ADM SS Urea nitrogen/Creatinine [Mass ratio] 18 ratio Normal 7 - 27 ratio AO ADM SS LABORATORYOrdered By: Qasim Mace on 03-02-2024 Cholesterol [Mass/Vol] 148 mg/dL Normal 0 - 200 mg/dL AO ADM SS Comment on above: Interpretive Data: C holesterol Reference Interval: Less than 200 Desirable 200-239 Borderline high risk 240 and above High risk Cholesterol in HDL [Mass/Vol] 42 mg/dL Normal 40 - 60 mg/dL AO ADM SS Cholesterol in LDL [Mass/Vol] 76 mg/dL Normal 0 - 130 mg/dL AO ADM SS Triglyceride [Mass/Vol] 148 mg/dL Normal 0 - 150 mg/dL AO ADM SS Comment on above: Interpretive Data: T riglyceride Reference Interval: Less than 150 Normal 150-199 Borderline high risk 200-499 High risk 500 or higher Very high risk .Auto Diffon 09-04-2023 Basophil, Absolute 0.1 10 3/mcL Normal 0.0-0.2 [facility] ([place]) Comment on above: Performed By: #### V IDH, ANEU, CBC, GFR, ADIFF, LIPID, CMP #### [address] [address] Basophils/100 WBC (Bld) 0.8 % Normal 0.0-2.5 [facility] ([place]) Comment on above: Performed By: #### V IDH, ANEU, CBC, GFR, ADIFF, LIPID, CMP #### [address] [address] Eosinophil, Absolute 0.2 10 3/mcL Normal 0.0-0.4 [facility] ([place]) Comment on above: Performed By: #### V IDH, ANEU, CBC, GFR, ADIFF, LIPID, CMP #### [address] [address] Eosinophils/100 WBC (Bld) 2.0 % Normal 0.0-7.0 [facility] ([place]) Comment on above: Performed By: #### V IDH, ANEU, CBC, GFR, ADIFF, LIPID, CMP #### [address] [address] Lymphocyte, Absolute 1.4 10 3/mcL Normal 0.8-3.9 [facility] ([place]) Comment on above: Performed By: #### V IDH, ANEU, CBC, GFR, ADIFF, LIPID, CMP #### [address] [address] Lymphocytes/100 WBC (Bld) 15.8 % Normal 10.0-50.0 [facility] ([place]) Comment on above: Performed By: #### V IDH, ANEU, CBC, GFR, ADIFF, LIPID, CMP #### [address] [address] Monocyte, Absolute 0.7 10 3/mcL Normal 0.2-1.0 [facility] ([place]) Comment on above: Performed By: #### V IDH, ANEU, CBC, GFR, ADIFF, LIPID, CMP #### [address] [address] Monocytes/100 WBC (Bld) 7.9 % Normal 1.7-13.0 [facility] ([place]) Comment on above: Performed By: #### V IDH, ANEU, CBC, GFR, ADIFF, LIPID, CMP #### [address] [address] Neutrophils/100 WBC (Bld) 73.5 % Normal 37.0-80.0 [facility] ([place]) Comment on above: Performed By: #### V IDH, ANEU, CBC, GFR, ADIFF, LIPID, CMP #### [address] [address] .GFRon 09-04-2023 GFR Non- 62 ml/min/1.73sqm Normal [facility] ([place]) Comment on above: Result Comment: GFR Population mean for , Non- Americans Ages 20-29 = 116 mL/min/1.73 sq.m. Ages 30-39 = 107 mL/min/1.73 sq.m. Ages 40-49 = 99 mL/min/1.73 sq.m. Ages 50-59 = 93 mL/min/1.73 sq.m. Ages 60-69 = 85 mL/min/1.73 sq.m. Ages 70+ = 75 mL/min/1.73 sq.m. Chronic Kidney Disease: Less than 60 mL/min/1.73 square meters End Stage Renal Disease: Less than 15 mL/min/1.73 square meters Performed By: #### V IDH, ANEU, CBC, GFR, ADIFF, LIPID, CMP ####[address] [address] GFR 75 ml/min/1.73sqm Normal [facility] ([place]) Comment on above: Result Comment: GFR Population mean for , Non- Americans Ages 20-29 = 116 mL/min/1.73 sq.m. Ages 30-39 = 107 mL/min/1.73 sq.m. Ages 40-49 = 99 mL/min/1.73 sq.m. Ages 50-59 = 93 mL/min/1.73 sq.m. Ages 60-69 = 85 mL/min/1.73 sq.m. Ages 70+ = 75 mL/min/1.73 sq.m. Chronic Kidney Disease: Less than 60 mL/min/1.73 square meters End Stage Renal Disease: Less than 15 mL/min/1.73 square meters Performed By: #### V IDH, ANEU, CBC, GFR, ADIFF, LIPID, CMP ####[place] [address] .NEUABSon 09-04-2023 Neutrophil, Absolute 6.4 10 3/mcL High 2.9-6.2 [facility] ([place]) Comment on above: Performed By: #### V IDH, ANEU, CBC, GFR, ADIFF, LIPID, CMP #### [place] [address] CBCon 09-04-2023 Erythrocyte distribution width (RBC) [Ratio] 16.1 % High 11.5-14.5 [facility] ([place]) Comment on above: Performed By: #### V IDH, ANEU, CBC, GFR, ADIFF, LIPID, CMP #### [place] [address] Hematocrit (Bld) [Volume fraction] 36.7 % Low 37.0-47.0 [facility] ([place]) Comment on above: Performed By: #### V IDH, ANEU, CBC, GFR, ADIFF, LIPID, CMP #### [place] [address] Hgb 11.8 G/dL Low 12.0-16.0 [facility] ([place]) Comment on above: Performed By: #### V IDH, ANEU, CBC, GFR, ADIFF, LIPID, CMP #### [place] [address] MCH (RBC) [Entitic mass] 24.0 pg Low 27.0-31.2 [facility] ([place]) Comment on above: Performed By: #### V IDH, ANEU, CBC, GFR, ADIFF, LIPID, CMP #### [place] [address] MCHC 32.3 G/dL Low 33.0-37.0 [facility] ([place]) Comment on above: Performed By: #### V IDH, ANEU, CBC, GFR, ADIFF, LIPID, CMP #### [address] [address] MCV (RBC) [Entitic vol] 74.5 fL Low 80.0-94.0 [facility] ([place]) Comment on above: Performed By: #### V IDH, ANEU, CBC, GFR, ADIFF, LIPID, CMP #### [address] [address] Platelet 357 10 3/mcL Normal 130-400 [facility] ([place]) Comment on above: Performed By: #### V IDH, ANEU, CBC, GFR, ADIFF, LIPID, CMP #### [address] [id number] Platelet mean volume (Bld) [Entitic vol] 7.7 fL Normal 7.4-10.4 [facility] ([place]) Comment on above: Performed By: #### V IDH, ANEU, CBC, GFR, ADIFF, LIPID, CMP #### [address] [address] RBC 4.93 10 6/mcL Normal 4.20-5.40 [facility] ([place]) Comment on above: Performed By: #### V IDH, ANEU, CBC, GFR, ADIFF, LIPID, CMP #### [address] [address] WBC 8.7 10 3/mcL Normal 4.6-10.8 [facility] ([place]) Comment on above: Performed By: #### V IDH, ANEU, CBC, GFR, ADIFF, LIPID, CMP #### [address] [address] CMPon 09-04-2023 Albumin Level 3.3 G/dL Low 3.4-4.8 [facility] ([place]) Comment on above: Performed By: #### V IDH, ANEU, CBC, GFR, ADIFF, LIPID, CMP #### [address] [address] Albumin/Globulin [Mass ratio] 0.9 {ratio} Low 1.1-2.5 [facility] ([place]) Comment on above: Performed By: #### V IDH, ANEU, CBC, GFR, ADIFF, LIPID, CMP #### [address] [address] ALP [Catalytic activity/Vol] 56 U/L Normal 40-135 [facility] ([place]) Comment on above: Performed By: #### V IDH, ANEU, CBC, GFR, ADIFF, LIPID, CMP #### [address] [address] ALT [Catalytic activity/Vol] 20 U/L Normal 14-59 [facility] ([place]) Comment on above: Performed By: #### V IDH, ANEU, CBC, GFR, ADIFF, LIPID, CMP #### [address] [address] [address] AST [Catalytic activity/Vol] 17 U/L Normal 10-40 [facility] ([place]) Comment on above: Performed By: #### V IDH, ANEU, CBC, GFR, ADIFF, LIPID, CMP #### [address] [address] Bili Total 0.4 mg/dL Normal 0.2-1.0 [facility] ([place]) Comment on above: Result Comment: Use of this assay is not recommended for patients undergoing treatment with eltrombopag due to the potential for falsely elevated results. Performed By: #### V IDH, ANEU, CBC, GFR, ADIFF, LIPID, CMP #### [address] [address] BUN/Creatinine Ratio 18 ratio Normal 7-27 [facility] ([place]) Comment on above: Performed By: #### V IDH, ANEU, CBC, GFR, ADIFF, LIPID, CMP #### [address] [address] Calcium [Mass/Vol] 8.9 mg/dL Normal 8.4-10.2 [facility] ([place]) Comment on above: Performed By: #### V IDH, ANEU, CBC, GFR, ADIFF, LIPID, CMP #### [address] [address] Chloride [Moles/Vol] 100 mmol/L Normal 98-107 [facility] ([place]) Comment on above: Performed By: #### V IDH, ANEU, CBC, GFR, ADIFF, LIPID, CMP #### [address] [address] CO2 [Moles/Vol] 30 mmol/L Normal 23-31 [facility] ([place] Comment on above: Performed By: #### V IDH, ANEU, CBC, GFR, ADIFF, LIPID, CMP #### [address] [address] Creatinine [Mass/Vol] 0.90 mg/dL Normal 0.55-1.02 [facility] ([place]) Comment on above: Performed By: #### V IDH, ANEU, CBC, GFR, ADIFF, LIPID, CMP #### [address] [address] Electrolyte Balance 9.0 mEq/L Normal 4.0-15.0 [facility] ([place]) Comment on above: Performed By: #### V IDH, ANEU, CBC, GFR, ADIFF, LIPID, CMP #### [address] [address] Globulin 3.5 G/dL Normal [facility] ([place] Comment on above: Performed By: #### V IDH, ANEU, CBC, GFR, ADIFF, LIPID, CMP #### [address] [address] Glucose [Mass/Vol] 114 mg/dL High 83-110 [facility] ([place] Comment on above: Performed By: #### V IDH, ANEU, CBC, GFR, ADIFF, LIPID, CMP #### [address] [address] Potassium [Moles/Vol] 3.9 mmol/L Normal 3.5-5.1 [facility] ([place] Comment on above: Performed By: #### V IDH, ANEU, CBC, GFR, ADIFF, LIPID, CMP #### [address] [address] Sodium [Moles/Vol] 139 mmol/L Normal 136-145 [facility] ([place] Comment on above: Performed By: #### V IDH, ANEU, CBC, GFR, ADIFF, LIPID, CMP #### [address] [address] Total Protein 6.8 G/dL Normal 6.4-8.2 [facility] ([place] Comment on above: Performed By: #### V IDH, ANEU, CBC, GFR, ADIFF, LIPID, CMP #### [address] [address] Urea nitrogen [Mass/Vol] 16 mg/dL Normal 7-18 [facility] ([place] Comment on above: Performed By: #### V IDH, ANEU, CBC, GFR, ADIFF, LIPID, CMP #### [address] [address] LIPIDon 09-04-2023 Cholesterol [Mass/Vol] 175 mg/dL Normal 0-200 [facility] ([place] Comment on above: Result Comment: Chol esterol Reference Interval: Less than 200 Desirable 200-239 Borderline high risk 240 and above High risk Performed By: #### V IDH, ANEU, CBC, GFR, ADIFF, LIPID, CMP ####[address] [address] Cholesterol in HDL [Mass/Vol] 53 mg/dL Normal 40-60 [facility] ([place] Comment on above: Performed By: #### V IDH, ANEU, CBC, GFR, ADIFF, LIPID, CMP ####[address] [place], [place] [address] Cholesterol in LDL [Mass/Vol] 94 mg/dL Normal 0-130 [facility] ([place] Comment on above: Performed By: #### V IDH, ANEU, CBC, GFR, ADIFF, LIPID, CMP ####[id number] [place], [place] [address] Triglyceride [Mass/Vol] 141 mg/dL Normal 0-150 [facility] ([place] Comment on above: Result Comment: Trig lyceride Reference Interval: Less than 150 Normal 150-199 Borderline high risk 200-499 High risk 500 or higher Very high risk Performed By: #### V IDH, ANEU, CBC, GFR, ADIFF, LIPID, CMP ####[address] [place], [place] [address] VIon 09-04-2023 Vit. D 25-Hydroxy 27.7 ng/mL Normal [facility] ([place] Comment on above: Result Comment: Inte rpretive Values Based on Total 25(OH) Vitamin D: Deficient <20 ng/mL Insufficient 20 - <30 ng/mL Sufficient 30-100 ng/mL Performed By: #### V IDH, ANEU, CBC, GFR, ADIFF, LIPID, CMP #### [address], [place] [address] XR HIP BILATERAL W/PELVIS MN NIMUM 5 VIEWSon 06-03-2023 XR HIP BILATERAL W/PELVIS MINIMUM 5 VIEWS ORIGINAL HISTORY: Pain COMPARISON: 21 September 2021 FINDINGS: There are no acute fractures or dislocations. Alignment is within normal limits. Joint spaces are maintained. The soft tissues are unremarkable. IMPRESSION: No acute fracture. Interpreted by: Bandar Guzman MD Preliminary Report By: Bandar Guzman MD Electronically signed By Bandar Guzman MD Dictated Date: 06/03/2023 4:04:32 PM Prelim Date: 06/03/2023 4:05:32 PM Sign Date: 06/03/2023 4:05:32 PM Ordering Provider: GLENYS ALLEN [facility] ([place]) X[facility]R HUMERUS MINIMUM 2 VIEWS RIGHT ORIGINAL EXAMINATION: TWO XRAY VIEWS OF THE RIGHT HUMERUS 06/03/2023 4:00 pm COMPARISON: None. HISTORY: ORDERING SYSTEM PROVIDED HISTORY: Reason for Exam: pain FINDINGS: No fracture or dislocation. Degenerative changes of the right shoulder. IMPRESSION: No acute osseous abnormality by radiograph. Interpreted by: Fernando Camp Preliminary Report By: Fernando Camp Electronically signed By Fernando Camp Dictated Date: 06/03/2023 4:05:00 PM Prelim Date: 06/03/2023 4:05:38 PM Sign Date: 06/03/2023 4:05:38 PM Ordering Provider: GLENYS ALLEN [facility] ([place]) XR SHOULDER MINIMUM 2 VIEWS RIGHTon 06-03-2023 XR SHOULDER MINIMUM 2 VIEWS RIGHT ORIGINAL EXAMINATION: TWO XRAY VIEWS OF THE RIGHT SHOULDER 06/03/2023 4:01 pm COMPARISON: Radiograph of the right shoulder September 07, 2022 HISTORY: ORDERING SYSTEM PROVIDED HISTORY: Reason for Exam: pain FINDINGS: No fracture or dislocation. Degenerative change of the acromioclavicular joint. Enthesopathic changes of the tuberosities. Subacromial joint space narrowing favoring sequelae of rotator cuff derangement. IMPRESSION: No acute osseous abnormality by radiograph. Interpreted by: Fernando Camp Preliminary Report By: Fernando Camp Electronically signed By Fernando Camp Dictated Date: 06/03/2023 4:03:36 PM Prelim Date: 06/03/2023 4:04:53 PM Sign Date: 06/03/2023 4:04:53 PM Ordering Provider: GLENYS ALLEN Normal [facility] ([place]) .GFRon 03-07-2023 GFR Non- 59 ml/min/1.73sqm Normal [facility] ([place]) Comment on above: Result Comment: GFR Population mean for , Non- Americans Ages 20-29 = 116 mL/min/1.73 sq.m. Ages 30-39 = 107 mL/min/1.73 sq.m. Ages 40-49 = 99 mL/min/1.73 sq.m. Ages 50-59 = 93 mL/min/1.73 sq.m. Ages 60-69 = 85 mL/min/1.73 sq.m. Ages 70+ = 75 mL/min/1.73 sq.m. Chronic Kidney Disease: Less than 60 mL/min/1.73 square meters End Stage Renal Disease: Less than 15 mL/min/1.73 square meters Performed By: #### L IPID, CMP, GFR #### [place] [address] GFR 72 ml/min/1.73sqm Normal [facility] ([place] Comment on above: Result Comment: GFR Population mean for , Non- Americans Ages 20-29 = 116 mL/min/1.73 sq.m. Ages 30-39 = 107 mL/min/1.73 sq.m. Ages 40-49 = 99 mL/min/1.73 sq.m. Ages 50-59 = 93 mL/min/1.73 sq.m. Ages 60-69 = 85 mL/min/1.73 sq.m. Ages 70+ = 75 mL/min/1.73 sq.m. Chronic Kidney Disease: Less than 60 mL/min/1.73 square meters End Stage Renal Disease: Less than 15 mL/min/1.73 square meters Performed By: #### L IPID, CMP, GFR #### [address] [address] CMPon 03-07-2023 Albumin Level 3.7 G/dL Normal 3.4-4.8 [facility] ([place] Comment on above: Performed By: #### L IPID, CMP, GFR #### [address] [address] Albumin/Globulin [Mass ratio] 1.1 {ratio} Normal 1.1-2.5 [facility] ([place] Comment on above: Performed By: #### L IPID, CMP, GFR #### [address] [address] ALP [Catalytic activity/Vol] 54 U/L Normal 40-135 [facility] ([place] Comment on above: Performed By: #### L IPID, CMP, GFR #### [address] [address] ALT [Catalytic activity/Vol] 21 U/L Normal 14-59 [facility] ([place] Comment on above: Performed By: #### L IPID, CMP, GFR #### [address] [address] AST [Catalytic activity/Vol] 18 U/L Normal 10-40 [facility] ([place] Comment on above: Performed By: #### L IPID, CMP, GFR #### [address] [address] Bili Total 0.5 mg/dL Normal 0.2-1.0 [facility] ([place] Comment on above: Result Comment: Use of this assay is not recommended for patients undergoing treatment with eltrombopag due to the potential for falsely elevated results. Performed By: #### L IPID, CMP, GFR #### [address] [address] BUN/Creatinine Ratio 22 ratio Normal 7-27 [facility] ([place] Comment on above: Performed By: #### L IPID, CMP, GFR #### [address] [address] Calcium [Mass/Vol] 8.8 mg/dL Normal 8.4-10.2 [facility] ([place] Comment on above: Performed By: #### L IPID, CMP, GFR #### [place] [id number] Chloride [Moles/Vol] 100 mmol/L Normal 98-107 [facility] ([place] Comment on above: Performed By: #### L IPID, CMP, GFR #### [place] [id number] CO2 [Moles/Vol] 30 mmol/L Normal 23-31 [facility] ([place] Comment on above: Performed By: #### L IPID, CMP, GFR #### [address] [address] Creatinine [Mass/Vol] 0.93 mg/dL Normal 0.55-1.02 [facility] ([place] Comment on above: Performed By: #### L IPID, CMP, GFR #### [address] [address] Electrolyte Balance 7.0 mEq/L Normal 4.0-15.0 [facility] ([place] Comment on above: Performed By: #### L IPID, CMP, GFR #### [address] [address] Globulin 3.5 G/dL Normal [facility] ([place] Comment on above: Performed By: #### L IPID, CMP, GFR #### [place] [id number] Glucose [Mass/Vol] 111 mg/dL High 83-110 [facility] ([place] Comment on above: Performed By: #### L IPID, CMP, GFR #### [address] [address] Potassium [Moles/Vol] 3.9 mmol/L Normal 3.5-5.1 [facility] ([place] Comment on above: Performed By: #### L IPID, CMP, GFR #### [address] [address] Sodium [Moles/Vol] 137 mmol/L Normal 136-145 [facility] ([place] Comment on above: Performed By: #### L IPID, CMP, GFR #### [address] [address] Total Protein 7.2 G/dL Normal 6.4-8.2 [facility] ([place] Comment on above: Performed By: #### L IPID, CMP, GFR #### [address] [address] Urea nitrogen [Mass/Vol] 20 mg/dL High 7-18 [facility] ([place] Comment on above: Performed By: #### L IPID, CMP, GFR #### [address] [address] LIPIDon 03-07-2023 Cholesterol [Mass/Vol] 168 mg/dL Normal 0-200 [facility] ([place] Comment on above: Result Comment: Chol esterol Reference Interval: Less than 200 Desirable 200-239 Borderline high risk 240 and above High risk Performed By: #### L IPID, CMP, GFR #### [address] [address] Cholesterol in HDL [Mass/Vol] 52 mg/dL Normal 40-60 [facility] ([place] Comment on above: Performed By: #### L IPID, CMP, GFR #### [address] [address] Cholesterol in LDL [Mass/Vol] 92 mg/dL Normal 0-130 [facility] ([place] Comment on above: Performed By: #### L IPID, CMP, GFR #### [facility] [address], [place] [address] Triglyceride [Mass/Vol] 121 mg/dL Normal 0-150 [facility] ([place] Comment on above: Result Comment: Trig lyceride Reference Interval: Less than 150 Normal 150-199 Borderline high risk 200-499 High risk 500 or higher Very high risk Performed By: #### L IPID, CMP, GFR #### [address] [place], [place] [address] XR SHOULDER MINIMUM 2 VIEWS LEFTon 09-08-2022 XR SHOULDER MINIMUM 2 VIEWS LEFT ORIGINAL EXAMINATION: TWO XRAY VIEWS OF THE RIGHT SHOULDER; TWO XRAY VIEWS OF THE LEFT SHOULDER09/07/2022 12:08 pm SHOULDER 2 VIEWS RIGHT; SHOULDER 2 VIEWS LEFT XR right shoulder three views, left shoulder three views COMPARISON: 04/19/2018 HISTORY: ORDERING SYSTEM PROVIDED HISTORY: Reason for Exam: Shoulder pain, chronic FINDINGS: No acute fracture, dislocation, lytic process or periosteal reaction is seen in the visualized bones and joints. No erosive type of arthritis. No periarticular soft tissue calcification. Suboptimal positioning and evaluation of the glenohumeral joint which is grossly normal on both sides. Bilateral mild AC joint arthrosis. IMPRESSION: No acute skeletal abnormality is seen. . Mild bilateral AC joint arthrosis. Interpreted by: Edison Harrison MD Preliminary Report By: Edison Harrison MD Electronically signed By Edison Harrison MD Dictated Date: 09/08/2022 2:11:20 PM Prelim Date: 09/08/2022 2:12:42 PM Sign Date: 09/08/2022 2:12:42 PM Ordering Provider: SULEIMAN Marrero [facility] ([place]) XR SHOULDER MINIMUM 2 VIEWS RIGHTon 09-08-2022 XR SHOULDER MINIMUM 2 VIEWS RIGHT ORIGINAL EXAMINATION: TWO XRAY VIEWS OF THE RIGHT SHOULDER; TWO XRAY VIEWS OF THE LEFT SHOULDER09/07/2022 12:08 pm SHOULDER 2 VIEWS RIGHT; SHOULDER 2 VIEWS LEFT XR right shoulder three views, left shoulder three views COMPARISON: 04/19/2018 HISTORY: ORDERING SYSTEM PROVIDED HISTORY: Reason for Exam: Shoulder pain, chronic FINDINGS: No acute fracture, dislocation, lytic process or periosteal reaction is seen in the visualized bones and joints. No erosive type of arthritis. No periarticular soft tissue calcification. Suboptimal positioning and evaluation of the glenohumeral joint which is grossly normal on both sides. Bilateral mild AC joint arthrosis. IMPRESSION: No acute skeletal abnormality is seen. . Mild bilateral AC joint arthrosis. Interpreted by: Edison Harrison MD Preliminary Report By: Edison Harrison MD Electronically signed By Edison Harrison MD Dictated Date: 09/08/2022 2:11:20 PM Prelim Date: 09/08/2022 2:12:42 PM Sign Date: 09/08/2022 2:12:42 PM Ordering Provider: SULEIMAN Marrero [facility] ([place]) LABORATORYOrdered By: Rupinder Rodriguez on 05-06-2022 Albumin BCP dye [Mass/Vol] 3.5 G/dL Invalid Interpretation Code 3.4 - 4.8 G/dL AO ADM SS Albumin/Globulin [Mass ratio] 1.1 {ratio} Invalid Interpretation Code 1.1 - 2.5 ratio AO ADM SS ALP [Catalytic activity/Vol] 57 U/L Invalid Interpretation Code 40 - 135 U/L AO ADM SS ALT With P-5'-P [Catalytic activity/Vol] 21 U/L Invalid Interpretation Code 14 - 59 U/L AO ADM SS AST With P-5'-P [Catalytic activity/Vol] 25 U/L Invalid Interpretation Code 10 - 40 U/L AO ADM SS Basophil, Absolute 0.1 103/mcL Invalid Interpretation Code 0.0 - 0.2 10^3/mcL AO Workflow SS Basophils/100 WBC (Bld) 1.1 % Invalid Interpretation Code 0.0 - 2.5 % AO Workflow SS Bilirubin [Mass/Vol] 0.5 mg/dL Invalid Interpretation Code 0.2 - 1.0 mg/dL AO ADM SS Calcium [Mass/Vol] 8.7 mg/dL Invalid Interpretation Code 8.4 - 10.2 mg/dL AO ADM SS Chloride [Moles/Vol] 101 mmol/L Invalid Interpretation Code 98 - 107 mmol/L AO ADM SS Cholesterol [Mass/Vol] 164 mg/dL Invalid Interpretation Code 0 - 200 mg/dL AO ADM SS Cholesterol in HDL [Mass/Vol] 41 mg/dL Invalid Interpretation Code 40 - 60 mg/dL AO ADM SS Cholesterol in LDL [Mass/Vol] 88 mg/dL Invalid Interpretation Code 0 - 130 mg/dL AO ADM SS CO2 [Moles/Vol] 32 mmol/L Invalid Interpretation Code 23 - 31 mmol/L AO ADM SS Creatinine [Mass/Vol] 0.83 mg/dL Invalid Interpretation Code 0.55 - 1.02 mg/dL AO ADM SS Electrolyte Balance 8.0 mEq/L Invalid Interpretation Code 4.0 - 15.0 mEq/L AO ADM SS Eosinophil, Absolute 0.2 103/mcL Invalid Interpretation Code 0.0 - 0.4 10^3/mcL AO Workflow SS Eosinophils/100 WBC (Bld) 2.5 % Invalid Interpretation Code 0.0 - 7.0 % AO Workflow SS Erythrocyte distribution width (RBC) [Ratio] 17.3 % Invalid Interpretation Code 11.5 - 14.5 % AO Workflow SS Globulin 3.3 G/dL Invalid Interpretation Code AO ADM SS Glucose [Mass/Vol] 116 mg/dL Invalid Interpretation Code 83 - 110 mg/dL AO ADM SS Hematocrit (Bld) [Volume fraction] 39.7 % Invalid Interpretation Code 37.0 - 47.0 % AO Workflow SS Hemoglobin (Bld) [Mass/Vol] 13.1 G/dL Invalid Interpretation Code 12.0 - 16.0 G/dL AO Workflow SS Lymphocyte, Absolute 1.2 103/mcL Invalid Interpretation Code 0.8 - 3.9 10^3/mcL AO Workflow SS Lymphocytes/100 WBC (Bld) 16.5 % Invalid Interpretation Code 10.0 - 50.0 % AO Workflow SS MCH (RBC) [Entitic mass] 26.6 pg Invalid Interpretation Code 27.0 - 31.2 pg AO Workflow SS MCHC 33.0 G/dL Invalid Interpretation Code 33.0 - 37.0 G/dL AO Workflow SS MCV (RBC) [Entitic vol] 80.7 fL Invalid Interpretation Code 80.0 - 94.0 fL AO Workflow SS Monocyte, Absolute 0.7 103/mcL Invalid Interpretation Code 0.2 - 1.0 10^3/mcL AO Workflow SS Monocytes/100 WBC (Bld) 9.4 % Invalid Interpretation Code 1.7 - 13.0 % AO Workflow SS Neutrophil, Absolute 5.2 103/mcL Invalid Interpretation Code 2.9 - 6.2 10^3/mcL AO Workflow SS Neutrophils/100 WBC (Bld) 70.5 % Invalid Interpretation Code 37.0 - 80.0 % AO Workflow SS Platelet mean volume (Bld) [Entitic vol] 8.1 fL Invalid Interpretation Code 7.4 - 10.4 fL AO Workflow SS Platelets (Bld) [#/Vol] 321 103/mcL Invalid Interpretation Code 130 - 400 10^3/mcL AO Workflow SS Potassium [Moles/Vol] 3.4 mmol/L Invalid Interpretation Code 3.5 - 5.1 mmol/L AO ADM SS Protein [Mass/Vol] 6.8 G/dL Invalid Interpretation Code 6.4 - 8.2 G/dL AO ADM SS RBC (Bld) [#/Vol] 4.92 106/mcL Invalid Interpretation Code 4.20 - 5.40 10^6/mcL AO Workflow SS Sodium [Moles/Vol] 141 mmol/L Invalid Interpretation Code 136 - 145 mmol/L AO ADM SS Triglyceride [Mass/Vol] 176 mg/dL Invalid Interpretation Code 0 - 150 mg/dL AO ADM SS Urea nitrogen [Mass/Vol] 14 mg/dL Invalid Interpretation Code 7 - 18 mg/dL AO ADM SS Urea nitrogen/Creatinine [Mass ratio] 17 ratio Invalid Interpretation Code 7 - 27 ratio AO ADM SS Vit. D 25-Hydroxy ng/mL Invalid Interpretation Code AO ADM SS WBC (Bld) [#/Vol] 7.3 103/mcL Invalid Interpretation Code 4.6 - 10.8 10^3/mcL AO Workflow SS LABORATORYOrdered By: SYSTEM SYSTEM on 05-06-2022 GFR 82 ml/min/1.73sqm Invalid Interpretation Code AO Chemistry S GFR Non- 68 ml/min/1.73sqm Invalid Interpretation Code AO Chemistry S LABORATORYOrdered By: Qasim Mace on 01-04-2022 Albumin BCP dye [Mass/Vol] 3.9 G/dL Invalid Interpretation Code 3.4 - 4.8 G/dL AO ADM SS Albumin/Globulin [Mass ratio] 1.2 {ratio} Invalid Interpretation Code 1.1 - 2.5 ratio AO ADM SS ALP [Catalytic activity/Vol] 69 U/L Invalid Interpretation Code 40 - 135 U/L AO ADM SS ALT With P-5'-P [Catalytic activity/Vol] 26 U/L Invalid Interpretation Code 14 - 59 U/L AO ADM SS AST With P-5'-P [Catalytic activity/Vol] 24 U/L Invalid Interpretation Code 10 - 40 U/L AO ADM SS Basophil, Absolute 0.1 103/mcL Invalid Interpretation Code 0.0 - 0.2 10^3/mcL AO Workflow SS Basophils/100 WBC (Bld) 0.9 % Invalid Interpretation Code 0.0 - 2.5 % AO Workflow SS Bilirubin [Mass/Vol] 0.5 mg/dL Invalid Interpretation Code 0.2 - 1.0 mg/dL AO ADM SS Calcium [Mass/Vol] 8.6 mg/dL Invalid Interpretation Code 8.4 - 10.2 mg/dL AO ADM SS Chloride [Moles/Vol] 99 mmol/L Invalid Interpretation Code 98 - 107 mmol/L AO ADM SS Cholesterol [Mass/Vol] 157 mg/dL Invalid Interpretation Code 0 - 200 mg/dL AO ADM SS Cholesterol in HDL [Mass/Vol] 42 mg/dL Invalid Interpretation Code 40 - 60 mg/dL AO ADM SS Cholesterol in LDL [Mass/Vol] 81 mg/dL Invalid Interpretation Code 0 - 130 mg/dL AO ADM SS CO2 [Moles/Vol] 29 mmol/L Invalid Interpretation Code 23 - 31 mmol/L AO ADM SS Creatinine [Mass/Vol] 0.90 mg/dL Invalid Interpretation Code 0.55 - 1.02 mg/dL AO ADM SS Electrolyte Balance 9.0 mEq/L Invalid Interpretation Code 4.0 - 15.0 mEq/L AO ADM SS Eosinophil, Absolute 0.2 103/mcL Invalid Interpretation Code 0.0 - 0.4 10^3/mcL AO Workflow SS Eosinophils/100 WBC (Bld) 3.0 % Invalid Interpretation Code 0.0 - 7.0 % AO Workflow SS Erythrocyte distribution width (RBC) [Ratio] 15.3 % Invalid Interpretation Code 11.5 - 14.5 % AO Workflow SS Globulin 3.3 G/dL Invalid Interpretation Code AO ADM SS Glucose [Mass/Vol] 105 mg/dL Invalid Interpretation Code 83 - 110 mg/dL AO ADM SS Hematocrit (Bld) [Volume fraction] 40.4 % Invalid Interpretation Code 37.0 - 47.0 % AO Workflow SS Hemoglobin (Bld) [Mass/Vol] 13.4 G/dL Invalid Interpretation Code 12.0 - 16.0 G/dL AO Workflow SS Lymphocyte, Absolute 1.4 103/mcL Invalid Interpretation Code 0.8 - 3.9 10^3/mcL AO Workflow SS Lymphocytes/100 WBC (Bld) 16.7 % Invalid Interpretation Code 10.0 - 50.0 % AO Workflow SS MCH (RBC) [Entitic mass] 25.9 pg Invalid Interpretation Code 27.0 - 31.2 pg AO Workflow SS MCHC 33.3 G/dL Invalid Interpretation Code 33.0 - 37.0 G/dL AO Workflow SS MCV (RBC) [Entitic vol] 77.9 fL Invalid Interpretation Code 80.0 - 94.0 fL AO Workflow SS Monocyte, Absolute 0.7 103/mcL Invalid Interpretation Code 0.2 - 1.0 10^3/mcL AO Workflow SS Monocytes/100 WBC (Bld) 8.2 % Invalid Interpretation Code 1.7 - 13.0 % AO Workflow SS Neutrophil, Absolute 5.9 103/mcL Invalid Interpretation Code 2.9 - 6.2 10^3/mcL AO Workflow SS Neutrophils/100 WBC (Bld) 71.2 % Invalid Interpretation Code 37.0 - 80.0 % AO Workflow SS Platelet mean volume (Bld) [Entitic vol] 8.2 fL Invalid Interpretation Code 7.4 - 10.4 fL AO Workflow SS Platelets (Bld) [#/Vol] 299 103/mcL Invalid Interpretation Code 130 - 400 10^3/mcL AO Workflow SS Potassium [Moles/Vol] 3.8 mmol/L Invalid Interpretation Code 3.5 - 5.1 mmol/L AO ADM SS Protein [Mass/Vol] 7.2 G/dL Invalid Interpretation Code 6.4 - 8.2 G/dL AO ADM SS RBC (Bld) [#/Vol] 5.19 106/mcL Invalid Interpretation Code 4.20 - 5.40 10^6/mcL AO Workflow SS Sodium [Moles/Vol] 137 mmol/L Invalid Interpretation Code 136 - 145 mmol/L AO ADM SS Triglyceride [Mass/Vol] 168 mg/dL Invalid Interpretation Code 0 - 150 mg/dL AO ADM SS Urea nitrogen [Mass/Vol] 14 mg/dL Invalid Interpretation Code 7 - 18 mg/dL AO ADM SS Urea nitrogen/Creatinine [Mass ratio] 16 ratio Invalid Interpretation Code 7 - 27 ratio AO ADM SS WBC 8.3 103/mcL Invalid Interpretation Code 4.6 - 10.8 10^3/mcL AO Workflow SS LABORATORYOrdered By: SYSTEM SYSTEM on 01-04-2022 GFR 75 ml/min/1.73sqm Invalid Interpretation Code AO Chemistry S GFR Non- 62 ml/min/1.73sqm Invalid Interpretation Code AO Chemistry S Monocyte distribution width Auto (Bld) [Entitic vol] Not Performed 1 *NA* (01/04/22 9:12 AM) Invalid Interpretation Code 0.00 - 20.00 AO Hematology S Comment on above: Result Comment: MDW testing performed only on adult ER patients between the ages of 18-89 years. LABORATORYOrdered By: Randy Modi on 09-13-2021 Albumin BCP dye [Mass/Vol] 3.6 G/dL Invalid Interpretation Code 3.4 - 4.8 G/dL AO ADM SS Albumin/Globulin [Mass ratio] 1.0 {ratio} Invalid Interpretation Code 1.1 - 2.5 ratio AO ADM SS ALP [Catalytic activity/Vol] 67 U/L Invalid Interpretation Code 40 - 135 U/L AO ADM SS ALT With P-5'-P [Catalytic activity/Vol] 20 U/L Invalid Interpretation Code 14 - 59 U/L AO ADM SS AST With P-5'-P [Catalytic activity/Vol] 22 U/L Invalid Interpretation Code 10 - 40 U/L AO ADM SS Bilirubin [Mass/Vol] 0.5 mg/dL Invalid Interpretation Code 0.2 - 1.0 mg/dL AO ADM SS Calcium [Mass/Vol] 8.8 mg/dL Invalid Interpretation Code 8.4 - 10.2 mg/dL AO ADM SS Chloride [Moles/Vol] 103 mmol/L Invalid Interpretation Code 98 - 107 mmol/L AO ADM SS Cholesterol [Mass/Vol] 153 mg/dL Invalid Interpretation Code 0 - 200 mg/dL AO ADM SS Cholesterol in HDL [Mass/Vol] 40 mg/dL Invalid Interpretation Code 40 - 60 mg/dL AO ADM SS Cholesterol in LDL [Mass/Vol] 82 mg/dL Invalid Interpretation Code 0 - 130 mg/dL AO ADM SS CO2 [Moles/Vol] 29 mmol/L Invalid Interpretation Code 23 - 31 mmol/L AO ADM SS Creatinine [Mass/Vol] 0.80 mg/dL Invalid Interpretation Code 0.55 - 1.02 mg/dL AO ADM SS Electrolyte Balance 10.0 mEq/L Invalid Interpretation Code 4.0 - 15.0 mEq/L AO ADM SS Globulin 3.7 G/dL Invalid Interpretation Code AO ADM SS Glucose [Mass/Vol] 116 mg/dL Invalid Interpretation Code 83 - 110 mg/dL AO ADM SS Potassium [Moles/Vol] 3.5 mmol/L Invalid Interpretation Code 3.5 - 5.1 mmol/L AO ADM SS Protein [Mass/Vol] 7.3 G/dL Invalid Interpretation Code 6.4 - 8.2 G/dL AO ADM SS Sodium [Moles/Vol] 142 mmol/L Invalid Interpretation Code 136 - 145 mmol/L AO ADM SS Triglyceride [Mass/Vol] 155 mg/dL Invalid Interpretation Code 0 - 150 mg/dL AO ADM SS TSH Qn 1.44 m[IU]/L Invalid Interpretation Code 0.36 - 3.74 mcIU/mL AO ADM SS Urea nitrogen [Mass/Vol] 19 mg/dL Invalid Interpretation Code 7 - 18 mg/dL AO ADM SS Urea nitrogen/Creatinine [Mass ratio] 24 ratio Invalid Interpretation Code 7 - 27 ratio AO ADM SS LABORATORYOrdered By: SYSTEM SYSTEM on 09-13-2021 GFR 86 ml/min/1.73sqm Invalid Interpretation Code AO Chemistry S GFR Non- 71 ml/min/1.73sqm Invalid Interpretation Code AO Chemistry S Vital Signs Date Time Vital Sign Value Performing Clinician [facility] 06-03-2023 15:08-0500 Blood Pressure Cuff Size NIDAL CHOUJAA DO [facility] 06-03-2023 15:08-0500 Blood Pressure Location NIDAL CHOUJAA DO [facility] 06-03-2023 15:08-0500 Blood Pressure Method NIDAL CHOUJAA DO [facility] 06-03-2023 15:08-0500 Body temperature 98.6 [degF] NIDAL CHOUJAA DO [facility] 06-03-2023 15:08-0500 Diastolic Blood Pressure Non-Invasive 85 mm[Hg] NIDAL CHOUJAA DO [facility] 06-03-2023 15:08-0500 Heart rate 88 /min NIDAL CHOUJAA DO [facility] 06-03-2023 15:08-0500 Respiratory rate 16 /min NIDAL CHOUJAA DO [facility] 06-03-2023 15:08-0500 Systolic Blood Pressure Non-Invasive 139 mm[Hg] NIDAL CHOUJAA DO [facility] Encounters Encounter Date Encounter Type Care Provider Facility Start: 03-06-2025 End: 03-06-2025 ambulatory SULEIMAN PRESTON MD Facility[facility] Start: 03-06-2025 End: 03-06-2025 Patient encounter procedure SULEIMAN PRESTON MD [facility] Start: 03-05-2025 ambulatory SULEIMAN PRESTON MD Faci lity:[facility] [place] Start: 08-31-2024 End: 08-31-2024 ambulatory SULEIMAN PRESTON MD Facility:[facility] Start: 03-02-2024 End: 03-02-2024 Patient encounter procedure SULEIMAN PRESTON MD [facility] Start: 09-04-2023 End: 09-05-2023 ambulatory SULEIMAN PRESTON MD Facility:[facility] Start: 06-03-2023 End: 06-03-2023 Emergency department patient visit SULEIMAN PRESTON MD Facility:[facility] Start: 06-03-2023 End: 06-03-2023 Emergency department patient visit GERCT DIANAMarlaPHILL DO [facility] Start: 03-07-2023 End: 03-08-2023 ambulatory SULEIMAN PRESTON MD Facility:[facility] Start: 09-07-2022 End: 09-08-2022 ambulatory SULEIMAN PRESTON MD Facility:[facility] Start: 09-07-2022 End: 09-07-2022 Patient encounter procedure SULEIMAN PRESTON MD [facility] Start: 05-06-2022 End: 05-06-2022 Patient encounter procedure SULEIMAN PRESTON MD [facility] Start: 01-04-2022 End: 01-04-2022 Patient encounter procedure SULEIMAN PRESTON MD [facility] Start: 09-21-2021 End: 09-21-2021 Patient encounter procedure SULEIMAN PRESTON MD [facility] Start: 09-13-2021 End: 09-13-2021 Patient encounter procedure SULEIMAN PRESTON MD [facility] Start: 10-01-2020 End: 10-01-[address] HANNAH Bahena [facility] Start: 09-08-2020 End: 09-08-[address] HANNAH Bahena [facility] Procedures Date Procedure Procedure Detail Performing Clinician Abdominal hysterectomy JUSTIN PRESTON MD Immunizations Immunization Date Immunization Notes Care Provider [facility] 04-16-2021 SARS-CoV-2 mRNA (tozinameran) vaccine SULEIMAN PRESTON MD [facility] 10-01-2020 SARS-CoV-2 mRNA (tozinameran) vaccine SULEIMAN PRESTON MD [facility] 09-08-2020 SARS-CoV-2 mRNA (tozinameran) vaccine SULEIMAN PRESTON MD [facility] 03-04-2020 influenza, injectabl e, quadrivalent, preservative free; Translations: [Fluarix PF Quadrivalent ] SULEIMAN PRESTON MD [facility] 04-03-2019 influenza, injectabl e, quadrivalent, preservative free; Translations: [Fluarix PF Quadrivalent ] SULEIMAN PRESTON MD [facility] 03-28-2018 influenza virus vacc ine, unspecified formulation SULEIMAN PRESTON MD [facility] 03-28-2017 influenza virus vacc ine, unspecified formulation SULEIMAN PRESTON MD [facility] 03-28-2017 pneumococcal conjuga te vaccine, 13 valent SULEIMAN PRESTON MD [facility] 03-30-2016 influenza virus vacc ine, unspecified formulation SULEIMAN PRESTON MD [facility] 03-18-2015 influenza virus vacc ine, unspecified formulation SULEIMAN PRESTON MD [facility] 05-26-2014 influenza virus vacc ine, unspecified formulation SULEIMAN PRESTON MD [facility] 03-27-2013 pneumococcal polysaccharide vaccine, 23 valent SULEIMAN PRESTON MD [facility] 03-01-2013 influenza virus vacc ine, unspecified formulation SULEIMAN PRESTON MD [facility] 03-28-2012 influenza virus vacc ine, unspecified formulation SULEIMAN PRESTON MD [facility] Payers Date Payer Category Payer Private Health Insurance [id number] 2022 Unknown [id number] 1950 Unknown [id number] 2.16.84 [id number] 1950 Unknown [id number] 2.16.84 [id number] 1950 Unknown [id number] 2.16.8 [id number] 1950 Unknown [id number] 2.16.8 [id number] 1950 Unknown [id number] 2.16.8 [id number] 1950 Unknown [id number] 2.16.8 [id number] 1950 Unknown [id number] 2.16. [id number] 1950 Unknown [id number] 2.16. [id number] 1950 Unknown [id number] 2.16.8 [id number] Medicare [id number] Social History Date Type Detail Facility Start: 04-03-2019 End: 11-15-2024 Tobacco smoking status Never smoked tobacco (finding) [facility] Sex Assigned At [facility] Start: 09-20-2013 Sex Female (finding) [facility] Functional Status Date Assessment Result Facility 06-03-2023 Functional Status Independent [facility] Mental Status Date Assessment Result Facility 06-03-2023 Mental Status Orientation Oriented x 4 [facility] Clinical Notes 06-03-2023 RadiologyRadiologyRadiologyRadiologyLaboratoryRadiologyLaboratoryLaboratory Note Date & Type Note Facility 06-03-2023 Hospital Discharge instructions Patient Education 06/03/2023 16:24:29 R.I.C.E. RICE RICE stands for rest, ice, compression, and elevation. Doing these things helps limit pain and swelling after an injury. RICE also helps injuries heal faster. Use RICE for sprains, strains, and severe bruises or bumps. Follow the tips on this handout and begin RICE as soon as possible after an injury. Rest Pain is your body s way of telling you to rest an injured area. Whether you have hurt an elbow, hand, foot, or knee, limiting its use will prevent further injury and help you heal. Ice Applying ice right after an injury helps prevent swelling and reduce pain. Don t place ice directly on your skin. Wrap a cold pack or bag of ice in a thin cloth. Place it over the injured area. Ice for 10 minutes every 3 hours. Don t ice for more than 20 minutes at a time. Compression Putting pressure (compression) on an injury helps prevent swelling and provides support. Wrap the injured area firmly with an elastic bandage. If your hand or foot tingles, becomes discolored, or feels cold to the touch, the bandage may be too tight. Rewrap it more loosely. If your bandage becomes too loose, rewrap it. Do not wear an elastic bandage overnight. Elevation Keeping an injury elevated helps reduce swelling, pain, and throbbing. Elevation is most effective when the injury is kept elevated higher than the heart. Call your healthcare provider if you notice any of the following: Fingers or toes feel numb, are cold to the touch, or change color. Skin looks shiny or tight. Pain, swelling, or bruising worsens and is not improved with elevation. [id number] [employer]. [address] [place] [address] 14400. All rights reserved. This information is not intended as a substitute for professional medical care. Always follow your healthcare professional's instructions. Follow Up Care 06/03/2023 14:45:09 With:SULEIMAN PRESTON MD Address: [address] [place] [address]- When:2-4 days [facility] 06-03-2023 Note Discharge Instructions Thank you for allowing [facility] to assist you with your healthcare needs. The following is important discharge information regarding your hospital visit. Diagnosis from Today's Visit Abdominal pain Left hip pain Right arm pain What to Do Next Instructions from Your Care Team Monitor for signs or symptoms such as increased pressure, firmness, pain, numbness, tingling, changes in colors of your skin such as discoloration or becoming more pale or feeling cooler to the touch. If these occur then we are concerned for something called compartment syndrome and you will need to return to an emergency department immediately. No qualifying data available. Post Acute Orders No qualifying data available. You Need to Schedule the Following Appointments Follow Up with SULEIMAN PRESTON MD When Within 2-4 days Where: [address] [facility] [place] [address]- Allergies sulfa drugs (as a child unsure of reaction) Medications Please ask your primary doctor or pharmacist before taking any other medication not listed, including over the counter drugs, herbal medications, vitamins and or supplements as they may interact with your home medications. What How Much When Why Instructions Last Dose Unchanged acetaminophen (Tylenol 8 HR Arthritis Pain) by mouth Every 8 hours Unchanged amLODIPine (amLODIPine 5 mg oral tablet) See instructions TAKE ONE TABLET BY MOUTH EVERY DAY Unchanged aspirin (aspirin 81 mg oral delayed release tablet) 1 tab(s) by mouth Once a day Unchanged citalopram (citalopram 40 mg oral tablet) 1 tab(s) by mouth Once a day Unchanged elderberry See instructions mg Oral qDay Unchanged ergocalciferol (Vitamin D2 1.25 mg (50,000 intl units) oral capsule) 1 cap by mouth Every week Vitamin D deficiency Duration: 30 Days Unchanged hydroCHLOROthiazide (hydroCHLOROthiazide 12.5 mg oral capsule) 1 cap by mouth Every day Benign essential hypertension GERD (gastroesophageal reflux disease) Duration: 90 Days Unchanged lisinopril (lisinopril 20 mg oral tablet) 1 tab(s) by mouth Once a day Unchanged Misc Medication elderberry Unchanged omeprazole (omeprazole 20 mg oral delayed release capsule) 1 cap by mouth Once a day Unchanged oxybutynin (oxybutynin 15 mg/ 24 hr oral tablet, extended release) 1 tab(s) by mouth Once a day Duration: 90 Days Unchanged simvastatin (simvastatin 40 mg oral tablet) 1 tab(s) by mouth Daily at bedtime Please take this list to your next doctor s visit. Bring all medications you take, including over the counter medications, herbals and other supplements with you to your doctor s visit. Patients and families are reminded to discard old lists and to update any records with all medication providers or retail pharmacies. Education Materials RICE RICE stands for rest, ice, compression, and elevation. Doing these things helps limit pain and swelling after an injury. RICE also helps injuries heal faster. Use RICE for sprains, strains, and severe bruises or bumps. Follow the tips on this handout and begin RICE as soon as possible after an injury. Rest Pain is your body s way of telling you to rest an injured area. Whether you have hurt an elbow, hand, foot, or knee, limiting its use will prevent further injury and help you heal. Ice Applying ice right after an injury helps prevent swelling and reduce pain. Don t place ice directly on your skin. Wrap a cold pack or bag of ice in a thin cloth. Place it over the injured area. Ice for 10 minutes every 3 hours. Don t ice for more than 20 minutes at a time. Compression Putting pressure (compression) on an injury helps prevent swelling and provides support. Wrap the injured area firmly with an elastic bandage. If your hand or foot tingles, becomes discolored, or feels cold to the touch, the bandage may be too tight. Rewrap it more loosely. If your bandage becomes too loose, rewrap it. Do not wear an elastic bandage overnight. Elevation Keeping an injury elevated helps reduce swelling, pain, and throbbing. Elevation is most effective when the injury is kept elevated higher than the heart. Call your healthcare provider if you notice any of the following: Fingers or toes feel numb, are cold to the touch, or change color. Skin looks shiny or tight. Pain, swelling, or bruising worsens and is not improved with elevation. [phone] [employer]. [address] [place] [address] 40435. All rights reserved. This information is not intended as a substitute for professional medical care. Always follow your healthcare professional's instructions. Additional Information VACCINATE! IT SAVES LIVES! Members of the community who have not yet received the COVID-19 vaccine and would like to receive it can visit one of [facility] vaccine clinics. There are many vaccine clinic locations within the [facility]. For locations and available times, please visit www.gettheshot.coronavirus.oregon.go [email or web address] It is important to note that some COVID mobile vaccine clinics are held outdoors and may be canceled in rainy or stormy conditions. To learn more about pediatric vaccinations (ages 5-11), we invite you to visit the [facility] webpage. https://www.[employer]s.org/pag es/3980-Ohxse-Yvsypeaceom-Frequent ql-Fserq-Wimtuwqbw.html To learn more about the COVID-19 vaccine, we invite you to visit the CDC website for a list of frequently asked questions. https://www.cdc.gov/coronavirus/20 19-ncov/vaccines/faq.html [facility] Patient Portal Access Instructions: Stay connected with your healthcare team and access your personal medical information anytime with the [facility] Patient Portal. If you would like a full copy of your medical records please contact the [facility] Medical Records Department Monday through Monday between 8a.m. and 4:30p.m. Please follow the directions below to access the portal: 1.Access the email account you provided upon registration to the hospital.2.Look for an invitation email from [facility].3.Open the email and access the invitation link: Accept Invitation to [facility].Fill in the required irby to create your account. Sign into [email or web address] with your username and password that you created in the above steps to stay up to date. You can then view a summary of results, a summary of your visits, and the ability to download your summaries to your computer or send the information securely to a physician. Remember that your healthcare information is confidential, so carefully consider who you will allow to register on the [facility] Patient Portal for access to your information. You can also access the [facility] Patient Portal on the [employer]. Simply click on Health Records under Health Data and then click on the [facility] logo. HOW TO SAFELY DISPOSE OF PRESCRIPTION MEDICATIONS Please use one of the following methods to safely dispose of your unused medications. 1.Use a drug disposal kit: the drug disposal pouch allows you to safely discard your old and unused drugs. Ask your nurse to give you one when you are discharged.2.Visit a local take-back location: Many local pharmacies and police departments have programs that collect old and unwanted prescription drugs. Call your local pharmacy or go to http://[employer].Podio/6E5Gv2r to find one close to you.3.Make use of household items: Use cat litter or old coffee grounds to dispose medications if other options are not available. Mix your drugs with these household products, seal them in an airtight container and throw it into the garbage. Call [facility]: [phone] to be sure your drugs can be disposed of in this way. Some medicines may require a different approach.4.Never flush your medications down the toilet. IF YOU HAVE BEEN PRESCRIBED AN OPIOIDS FOR PAIN If you have been prescribed an opioid (such as hydrocodone, oxycodone or morphine), it is critical to understand the possible side effects and risks of opioid pain medications. Even when taken as directed, opioids can have several side effects including: Tolerance, meaning you might need to take more of a medication for the same pain relief. Nausea, vomiting and/or constipation. Sleepiness, dizziness, dry mouth, confusion, depression or itching. Physical dependence, meaning you have withdrawal symptoms when a medication is stopped ? this can develop within a few days. KNOW YOUR RESPONSIBILITIES It is important to know exactly how much and how often to take the opioid pain medications you are prescribed. Never take opioids in higher amounts or more often than prescribed. Do not combine opioids with alcohol or other drugs that cause drowsiness, such as benzodiazepines, also known as benzos, including diazepam and alprazolam, muscle relaxants or sleep aids. Never sell or share prescription opioids. This is illegal. Store opioids in a secure place and out of reach of others (including children, family, friends and visitors). The last page(s) of this document has been signed and retained as a CHART COPY Signatures Patient Education Materials R.I.C.E. Medication Leaflets My discharge plan and instructions have been reviewed and explained to me and I,ANITA LOYD understand my current condition and have read and understand these discharge instructions. I have received a written copy of the plan/instructions. If I have questions, I am aware that I should contact my doctor. Patient/[employer] Signature: Date/Time: Relationship to Patient: ___ Witness Name/Signature: Date/Time: [facility] 06-03-2023 Note ORIGINAL EXAMINATION: TWO XRAY VIEWS OF THE RIGHT SHOULDER 06/03/2023 4:01 pm COMPARISON: Radiograph of the right shoulder September 07, 2022 HISTORY: ORDERING SYSTEM PROVIDED HISTORY: Reason for Exam: pain FINDINGS: No fracture or dislocation. Degenerative change of the acromioclavicular joint. Enthesopathic changes of the tuberosities. Subacromial joint space narrowing favoring sequelae of rotator cuff derangement. IMPRESSION: No acute osseous abnormality by radiograph. Interpreted by: Fernando Camp Preliminary Report By: Fernando Camp Electronically signed By Fernando Camp Dictated Date: 06/03/2023 4:03:36 PM Prelim Date: 06/03/2023 4:04:53 PM Sign Date: 06/03/2023 4:04:53 PM Ordering Provider: [facility] 06-03-2023 Note ORIGINAL EXAMINATION: TWO XRAY VIEWS OF THE RIGHT HUMERUS 06/03/2023 4:00 pm COMPARISON: None. HISTORY: ORDERING SYSTEM PROVIDED HISTORY: Reason for Exam: pain FINDINGS: No fracture or dislocation. Degenerative changes of the right shoulder. IMPRESSION: No acute osseous abnormality by radiograph. Interpreted by: Fernando Camp Preliminary Report By: Fernando Camp Electronically signed By Fernando Camp Dictated Date: 06/03/2023 4:05:00 PM Prelim Date: 06/03/2023 4:05:38 PM Sign Date: 06/03/2023 4:05:38 PM Ordering Provider: [facility] 06-03-2023 Note ORIGINAL HISTORY: Pain COMPARISON: 21 September 2021 FINDINGS: There are no acute fractures or dislocations. Alignment is within normal limits. Joint spaces are maintained. The soft tissues are unremarkable. IMPRESSION: No acute fracture. Interpreted by: Bandar Guzman MD Preliminary Report By: Bandar Guzman MD Electronically signed By Bandar Guzman MD Dictated Date: 06/03/2023 4:04:32 PM Prelim Date: 06/03/2023 4:05:32 PM Sign Date: 06/03/2023 4:05:32 PM Ordering Provider: [facility] Evaluation + Plan note Future Appointments Appointment Date:09/21/2021 01:30:00 PM Scheduled Provider:SULEIMAN PRESTON MD Location:[facility] Appointment Type:PC OV Follow Up Future Scheduled TestsXR Foot Minimum 3 Views Left 12XR Ankle Minimum 3 Views Left 05/13/21 [facility] Evaluation + Plan note Future Appointments Appointment Date:09/30/2021 02:00:00 PM Scheduled Provider:SULEIMAN PRESTON MD Location:[facility] Appointment Type:PC OV Future Scheduled TestsXR Foot Minimum 3 Views Left 12/08/02XR Ankle Minimum 3 Views Left 12/08/02XR Hip Minimum 4 Views Bilateral 09/21/21 [facility] Evaluation + Plan note Future Appointments Appointment Date:01/07/2022 02:00:00 PM Scheduled Provider:SULEIMAN PRESTON MD Location:[facility] Appointment Type:PC OV Future Scheduled TestsXR Foot Minimum 3 Views Left 12/2/21XR Ankle Minimum 3 Views Left 12/08/02XR Hip Minimum 4 Views Bilateral 09/21/21 [facility] Evaluation + Plan note Future Appointments Appointment Date:05/10/2022 02:30:00 PM Scheduled Provider:SULEIMAN PRESTON MD Location:[facility] Appointment Type:PC OV Future Scheduled TestsXR Foot Minimum 3 Views Left 12/08/02XR Ankle Minimum 3 Views Left 12/2XR Hip Minimum 4 Views Bilateral 09/21/21 [facility] Evaluation + Plan note Future Appointments Appointment Date:03/09/2023 02:00:00 PM Scheduled Provider:SULEIMAN PRESTON MD Location:[facility] Appointment Type:PC OV Future Scheduled TestsLipid Profile 03/09/23Vitamin D Level 09/06/22Complete Metabolic Panel 03/09/23XR Hip Minimum 4 Views Bilateral 09/21/21 [facility] Evaluation + Plan note Future Appointments Appointment Date:09/07/2023 02:00:00 PM Scheduled Provider:SULEIMAN PRESTON MD Location:[facility] Appointment Type:PC OV Future Scheduled TestsComplete Blood Count 03/09/23Lipid Profile 09/07/23Vitamin D Level 09/06/22Complete Metabolic Panel 09/07/23 [facility] Evaluation + Plan note Future Appointments Appointment Date:03/07/2024 02:30:00 PM Scheduled Provider:SULEIMAN PRESTON MD Location[facility] Appointment Type:PC OV Future Scheduled TestsFerritin 09/07/23Thyroid Stimulating Hormone 09/07/23Complete Blood Count 09/07/23Vitamin D Level 09/07/23 [facility] Evaluation + Plan note Future Appointments Appointment Date:03/07/2025 01:30:00 PM Scheduled Provider:SULEIMAN PRESTON MD Location:[facility] Appointment Type:PC OV Follow Up [facility] Hospital course Narrative No data available for this section [facility] Hospital Discharge instructions No data available for this section [facility] Progress note No data available for this section [facility] Summary Purpose Family History No Family History Records Found No data available for this section No Family History Records Found No data available for this section No data available for this section No Family History Records Found Advance Directives No Advanced Directives Records FoundNo Advanced Directives Records FoundNo Advanced Directives Records Found Additional Source Comments INFORMATION SOURCE (unrecogn ized section and content) DATE CREATED AUTHOR 10/09/2020 [facility] DATE CREATED AUTHOR AUTHOR'S ORGANIZ ATION 09/07/2023 [facility] ([place]) DATE CREATED AUTHOR AUTHOR'S ORGANIZ ATION 03/14/2025 [facility] Care Team (unrecognized sect ion and content) Personnel Name: SULEIMAN PRESTON MD Address: [address] Personnel Name: SULEIMAN PRESTON MD Address: [address] Care Team Personnel Name: SULEIMAN PRESTON MD Position: P4 Physician - Primary Care Member Role: Primary Care Physician Address: Address: [address] [place] [address] Care Team Related Persons Name: JULIANNE EUGENE Address: Home [address] [place], [place] [id number] Care Team Personnel Name: SULEIMAN PRESTON MD Position: P4 Physician - Primary Care Member Role: Primary Care Physician Address: Address: [address] [place] [id number] [place] [address] Name: GLENYS ALLEN DO Position: ED Physician Member Role: Attending Physician Address: Address: [address] [place] [address] Name: Quinn Mchugh [employer] Position: [employer] INSTRUCTOR Member Role: ED [employer] IN[employer]CTOR Care Team Related Persons Name: JULIANNE EUGENE Address: Home [address] [place], [place] [id number] Care Team Personnel Name: SULEIMAN PRESTON MD Position: P4 Physician - Primary Care Member Role: Primary Care Physician Address: Address: [address] [place], [place] [address] Care Team Related Persons Name: JULIANNE EUGENE Address: Home [address] [place], [place] [id number] Care Team Personnel Name: SULEIMAN PRESTON MD Position: P4 Physician - Primary Care Member Role: Primary Care Physician Address: [address] Telecom: Care Team Related Persons Name: JULIANNE EUGENE Care Team (unrecognized sect ion and content) Care Team Personnel Name: SULEIMAN PRESTON MD Position: P4 Physician - Primary Care Med Service: Active Provider Member Role: Primary Care Physician Address: Address: [facility] [address] Care Team Related Persons Name: JULIANNE EUGENE Address: Home [address] [place], [place] [id number] Care Team Personnel Name: SULEIMAN PRESTON MD Position: P4 Physician - Primary Care Member Role: Primary Care Physician Address: Address: [facility] [address] Care Team Related Persons Name: JULIANNE EUGENE Address: Home [address] [place], [place] [id number] FOR RECORDS PERTAINING TO PATIENTS WHO ARE OR HAVE BEEN ENROLLED IN A CHEMICAL DEPENDENCY/SUBSTANCEABUSE PROGRAM, SOME INFORMATION MAY BE OMITTED. This clinical summary was aggregated from multiple sources. Caution should be exercised in using it in the provision of clinical care. This summary normalizes information from multiple sources, and as a consequence, information in this document may materially change the coding, format and clinical context of patient data. In addition, data may be omitted in some cases. CLINICAL DECISIONS SHOULD BE BASED ON THE PRIMARY CLINICAL RECORDS. [employer] provides no warranty or guarantee of the accuracy or completeness of information in this document.
[2025-04-02] MEDS: HYDROcodone Bitartrate/Apap 5/325 Tablet PO (18:39)
--- NOTE | 2025-04-02 18:40 | RAD_ITS ---
PROCEDURE: HIP, UNI W/ PELVIS 2-3 VIEWS 04/02/2025 REASON FOR EXAM: PAIN TECHNIQUE: Procedure Code: [facility] Modality: DX Procedure: HIP, UNI W/ PELVIS 2-3 VIEWS Laterality: FINDINGS: No evidence of acute fracture or dislocation. Mild bilateral hip degenerative changes. RAD/HIP, UNI W/ Pelvis 2-3 Views IMPRESSION: No acute osseous abnormalities. Reading Location: [id number]
--- NOTE | 2025-04-02 18:51 | ED.VIS.FALL ---
HPI HPI - Fall History of Present Illness Chief Complaint: Fall Narrative Narrative: Chief complaint and HPI: 74-year-old female with past medical history of anxiety, depression, HTN presents for evaluation of right hip pain after mechanical fall. Patient states she was moving a large TV to the end of her driveway when she lost her balance and fell onto her right hip. She denies hitting her head. No LOC. Not on blood thinners. Denies pain elsewhere. Denies any numbness or tingling. Review of systems: See HPI Medications: As listed on the chart Allergies: As listed on the chart PFSH: Per chart Vital signs: As listed on the chart. Reviewed. Physical exam: Gen: A&O x3, NAD Head: Normocephalic, atraumatic Eyes: No sclera icterus, conjunctiva clear ENT: Moist mucous membranes, atraumatic Neck: Trachea midline, full range of motion, nontender CV: RRR, no murmurs, no chest wall TTP Resp: Lungs CTA BL, no w/r/c GI: Abd soft, non-distended, non-tender, no r/r/g Musc: Full range of motion of all the extremities except in the right hip secondary to pain although passive full range of motion of the hip, no knee pain or instability bilaterally, no deformity, compartments soft, DP/PT pulses +2 bilaterally, good capillary refill, no deformity, no midline spinal tenderness, no back tenderness, no bony step-offs Skin: Warm, dry, intact without external signs of trauma such as ecchymosis Neuro: Alert, oriented, grossly intact, sensation intact, GCS 15 Psych: Cooperative, appropriate mood and affect [facility] Medical History (Updated 04/02/25 @ 20:[address] Bhupinder Tamayo, ) Anxiety Depression Urinary incontinence High cholesterol Hypertension Home Medications ?Medication ?Instructions ?Recorded ?Last Taken ?Type citalopram 40 mg tablet 40 mg PO DAILY 07/06/18 04/02/25 08:00 History lisinopril 20 mg tablet 20 mg PO DAILY 07/06/18 04/02/25 08:05 History omeprazole 20 mg capsule,delayed 20 mg PO DAILY 07/06/18 04/02/25 08:00 History release simvastatin 40 mg tablet 40 mg PO QHS 07/06/18 04/02/25 08:00 History oxybutynin chloride 15 mg 15 mg PO DAILY 04/02/25 04/02/25 08:00 History tablet,extended release 24 hr tramadol 50 mg tablet 50 mg PO Q6H PRN PRN pain 04/02/25 04/02/25 08:00 History Allergy/AdvReac Type Severity Reaction Status Date / Time Sulfa (Sulfonamide Allergy Mild PT UNSURE Verified 04/02/25 17:16 Antibiotics) OF REACTION Surgical History H/O: hysterectomy Social History Smoking Status: Never smoker EXAM Physical Exam Const Vital Signs: 04/02/25 17:12 04/02/25 17:17 04/02/25 17:23 Temperature 97.6 F L Temperature Source Oral Pulse Rate 80 79 Respiratory Rate 14 14 Respiratory Effort Normal Respiratory Depth Normal Respiratory Pattern Normal Blood Pressure 163/151 H 167/82 H Blood Pressure Mean 155 110 Pulse Ox 98 96 Oxygen Delivery Method Room Air Room Air Room Air 04/02/25 19:08 04/02/25 19:38 04/02/25 21:23 Temperature 97.7 F L Temperature Source Pulse Rate 70 65 77 Respiratory Rate 14 14 16 Respiratory Effort Respiratory Depth Respiratory Pattern Blood Pressure 180/81 H 185/67 H 175/80 H Blood Pressure Mean 114 106 111 Pulse Ox 98 93 100 Oxygen Delivery Method Room Air Room Air MDM MDM MDM Narrative Medical decision making narrative: 74-year-old female with past medical history of anxiety, depression, HTN presents for evaluation of right hip pain after mechanical fall. Patient states she was moving a large TV to the end of her driveway when she lost her balance and fell onto her right hip. She denies hitting her head. No LOC. Not on blood thinners. Denies pain elsewhere. See physical exam findings. Differential diagnosis includes but is not limited to hip contusion, hip fracture. Hanna given for pain. X-ray of the hip and pelvis obtained. X-ray was personally reviewed interpreted by me, ED physician. No fracture or dislocation. Radiology in agreement. Patient's symptoms likely secondary to hip contusion. Pain improved with Hanna. She ambulated in the emergency department without difficulty. Patient stable for discharge home. Tylenol Motrin as needed for pain. Follow-up with primary care physician. She confirmed understand the plan. Impression: 1. Right hip contusion 2. Mechanical fall 3. Hypertension with history of hypertension Radiography Diagnostic Testing: Clinical Impression(s) from Imaging Studies Hip/Pelvis X-Ray 04/02/25 18:40 IMPRESSION: No acute osseous abnormalities. Reading Location: [address] Discharge Plan Triage Chief Complaint: Fall ED Provider: Bhupinder Tamayo Dx/Rx/DC Orders Clinical Impression: Contusion of hip, right, HTN (hypertension) Instructions: ED Hip Contusion Prescriptions: No Action citalopram 40 MG tablet 40 mg PO DAILY lisinopril 20 MG tablet 20 mg PO DAILY simvastatin 40 MG tablet 40 mg PO QHS omeprazole 20 MG capsule 20 mg PO DAILY oxybutynin chloride 15 mg tablet extended release 24hr 15 mg PO DAILY tramadol 50 mg tablet 50 mg PO Q6H PRN PRN (Reason: pain) Primary Care Provider: Jad Pederson Referrals: Jad Pederson MD [Primary Care Provider, Family Practice] - 3-5 Days Activity Restrictions/Additional Instructions: Tylenol and ibuprofen as needed for pain. Return back to ED symptoms change or worsen. Print Language: Turkish Disposition Disposition: Home, Self Care Discharge Date/Time: 04/02/25 21:24
[2025-04-02 19:08] VITALS: BP 180/81; PULSE 70; RESP 14; O2SAT 98
[2025-04-02 19:38] VITALS: BP 185/67; PULSE 65; RESP 14; O2SAT 93
[2025-04-02 21:23] VITALS: BP 175/80; PULSE 77; RESP 16; TEMP 36.5; O2SAT 100
== END 2025-04-02 21:24 | disposition home or self-care (01) ==
PROVIDERS: Emergency Provider Surgery; PCP Family Medicine; Visit Provider Surgery
DX: S70.01XA Contusion of right hip, initial encounter (principal); F41.9 Anxiety disorder, unspecified; W19.XXXA Unspecified fall, initial encounter; E78.00 Pure hypercholesterolemia, unspecified; I10 Essential (primary) hypertension; W01.10XA Fall on same level from slipping, tripping and stumbling with subsequent striking against unspecified object, initial encounter; Y93.89 Activity, other specified; Y92.89 Other specified places as the place of occurrence of the external cause; Z79.899 Other long term (current) drug therapy; Z90.710 Acquired absence of both cervix and uterus
CPT/HCPCS: 73502; 99284

== ENCOUNTER 2025-04-04 09:38 | Emergency (ER) | payer MEDICARE, SELFPAY ==
[2025-04-04 09:40] VITALS: BP 168/95; PULSE 77; RESP 18; TEMP 36.8; O2SAT 96; BMI 39.7
--- NOTE | 2025-04-04 09:47 | CT_ITS ---
PROCEDURE: PELVIS WITHOUT IV CONTRAST 04/04/2025 REASON FOR EXAM: FALL 2 DAYS AGO, NEG XRAY, COULDNT WALK TODAY TECHNIQUE: Procedure Code: CTPEL Modality: CT Procedure: PELVIS WITHOUT IV CONTRAST One or more dose reduction techniques were used (e.g., Automated exposure control, adjustment of the mA and/or kV according to patient size, use of iterative reconstruction technique). RADIATION DOSE SUMMARY: CTDlvol: 36.48 mGy DLP: 1197.32 mGycm COMPARISON: None FINDINGS: Diffuse osteopenia is noted. No demonstrated acute fracture or suspicious osseous lesion noted within the pelvis.. There is an acute, compression fracture affecting the inferior endplate of L4 best seen on the sagittal reconstructed images. There is no retropulsion or extension of the fracture to involve the posterior elements. The axial images show bilateral foraminal narrowing throughout the lumbar spine due to facet joint hypertrophy. Soft tissue windows show nonobstructing left nephrolithiasis. Bowel loops are unremarkable. There are scattered colonic diverticula without CT evidence of acute diverticulitis. The appendix is visualized and normal. No free pelvic fluid or air. The bladder distends normally. No suspicious soft tissue swelling CT/Pelvis without IV Contrast IMPRESSION: Acute compression fracture affecting the inferior endplate of the L4 vertebral body seen best on the sagittal recon images. There is no evidence of extension of the fracture to involve the posterior [place] ents. There is approximately 10% loss of height. No demonstrated acute fracture within the pelvis or femurs No suspicious soft tissue swelling or foreign body Scattered colonic diverticula, no CT evidence of acute diverticulitis Normal appendix visualized Reading Location: [id number]
--- NOTE | 2025-04-04 09:48 | ED.VIS.LOWEX ---
HPI History of Present Illness Chief Complaint: Lower Extremity Injury Narrative Narrative: Patient is a 74-year-old female presenting to the emergency department for right hip pain. Patient had a fall 2 days ago and was seen in the emergency department and had a negative x-ray done of her hip. She was able to ambulate at that time and was discharged home. She states that yesterday she was not able to ambulate as much due to pain. States this morning she could not get up at all. She has been taking Tylenol at home for pain control. Denies any new falls or trauma to the hip. Denies any fever or chills. Denies any back pain. Denies any numbness or weakness in her leg. [facility] Medical History Anxiety Depression Urinary incontinence High cholesterol Hypertension Home Medications ?Medication ?Instructions ?Recorded ?Last Taken ?Type citalopram 40 mg tablet 40 mg PO DAILY 07/06/18 04/02/25 08:00 History lisinopril 20 mg tablet 20 mg PO DAILY 07/06/18 04/02/25 08:05 History omeprazole 20 mg capsule,delayed 20 mg PO DAILY 07/06/18 04/02/25 08:00 History release simvastatin 40 mg tablet 40 mg PO QHS 07/06/18 04/02/25 08:00 History oxybutynin chloride 15 mg 15 mg PO DAILY 04/02/25 04/02/25 08:00 History tablet,extended release 24 hr tramadol 50 mg tablet 50 mg PO Q6H PRN PRN pain 04/02/25 04/02/25 08:00 History hydrocodone-acetaminophen 5-325mg 1 tab PO Q6H PRN PRN Pain 3 days 04/04/25 Unknown Rx 5mg-325mg #10 TABLETS Allergy/AdvReac Type Severity Reaction Status Date / Time Sulfa (Sulfonamide Allergy Mild PT UNSURE Verified 04/04/25 09:43 Antibiotics) OF REACTION Surgical History H/O: hysterectomy Social History Smoking Status: Never smoker ROS ROS ED ROS Narrative see HPI EXAM Physical Exam Narrative Exam Narrative: Vital signs: Reviewed General: Alert and oriented x 3. No acute distress HEENT: Head is normocephalic and atraumatic, sinuses nontender, pupils equal round and reactive. Nares are patent. Oropharynx and throat exams normal. Neck: Supple without lymphadenopathy nontender Cardiovascular: Regular rate and rhythm, no murmurs. No rubs or gallops. Normal S1 and S2 Respiratory: Clear to auscultation bilaterally. No wheezes, rales, rhonchi Abdominal: Soft and nontender. Normal bowel sounds. No guarding or rebound. Nonsurgical abdomen Extremities: Tenderness to palpation of the right lateral hip. Hip is stable to palpation. There is no ecchymosis or erythema to the hip. Compartments are soft to palpation. No midline lumbar spinal tenderness to palpation. No step-offs or deformities. No tenderness to palpation of the thigh, knee or tib-fib. No posterior calf swelling or pain on palpation. DP and PT pulses intact bilaterally. Patient able to flex and extend at the hip with mild pain. Sensation intact. Skin: No rash or redness. Neurological: Cranial nerves II through XII are grossly intact. Normal strength and sensation. Normal cerebellar function The rest of the physical exam is unremarkable Const Vital Signs: 04/04/25 09:40 04/04/25 12:18 04/04/25 12:21 Temperature 98.3 F 97.6 F L 97.6 F L Temperature Source Oral Pulse Rate 77 82 82 Respiratory Rate 18 18 18 Blood Pressure 168/95 H 138/58 H 138/58 H Blood Pressure Mean 119 84 84 Pulse Ox 96 99 99 Oxygen Delivery Method Room Air MDM MDM MDM Narrative Medical decision making narrative: Patient is a 74-year-old female presenting to the emergency department for right hip pain after a fall 2 days ago. Patient was seen and examined. Vitals are stable. Patient resting bed comfortably no acute distress. Visit from 2 days ago was reviewed. X-ray was obtained of the hip at that time which showed no fractures or dislocations. Patient was able to ambulate. Given the patient reporting she is now unable to ambulate will obtain a CT of the hip to evaluate for any occult fracture. CT shows acute compression fracture affecting the inferior endplate of the L4 vertebral body seen best on the sagittal recon images. There is no evidence of extension of the fracture to involve the posterior elements. There is approximately 10% loss of height. No demonstrated acute fracture within the pelvis or femurs. No suspicious soft tissue swelling or foreign body. Scattered colonic diverticula, no CT evidence of acute diverticulitis. Patient ambulated with a walker which she uses at home. Patient is having no back pain and the compression fracture is less than 25% loss of height. Does not require admission from this aspect. She was offered admission for pain control because she is still reporting a significant amount of pain in her hip when she is walking. States that she would like to try to go home and take pain medication. I do not see that she was prescribed narcotics when she was here before however it was planned in the provider's note. Will send a short course of [place] to the pharmacy for her to take every 8 hours as needed. Patient discharged from the Emergency Department. I do not feel that the patient's evaluation reveals any acute reason for admission at this time. I instructed them to either follow-up with their primary care physician or promptly return to the Emergency Department for reevaluation should symptoms worsen or new symptoms develop. I explained what symptoms would indicate the need to return to the emergency department. Shared decision making was used. The patient voiced understanding of the treatment plan and is agreeable with it. Clinical impression L4 compression fracture Hip pain History & Record Review Discussion w/independent historian: Patient Additional record(s) reviewed:: Prior ED visit Radiography Diagnostic Testing: Clinical Impression(s) from Imaging Studies Pelvis CT 04/04/25 09:47 IMPRESSION: Acute compression fracture affecting the inferior endplate of the L4 vertebral body seen best on the sagittal recon images. There is no evidence of extension of the fracture to involve the posterior elements. There is approximately 10% loss of height. No demonstrated acute fracture within the pelvis or femurs No suspicious soft tissue swelling or foreign body Scattered colonic diverticula, no CT evidence of acute diverticulitis Normal appendix visualized Reading Location: [id number] Discharge Plan Triage Chief Complaint: Lower Extremity Injury ED Provider: Anamaria Mendez Dx/Rx/DC Orders Clinical Impression: Contusion of hip, right, Compression fracture Instructions: Compression Fx, ED Hip Contusion Prescriptions: New hydrocodone-acetaminophen 5-325 mg tablet 1 tab PO Q6H PRN PRN (Reason: Pain) 3 Days Qty: 10 0RF No Action citalopram 40 MG tablet 40 mg PO DAILY lisinopril 20 MG tablet 20 mg PO DAILY simvastatin 40 MG tablet 40 mg PO QHS omeprazole 20 MG capsule 20 mg PO DAILY oxybutynin chloride 15 mg tablet extended release 24hr 15 mg PO DAILY tramadol 50 mg tablet 50 mg PO Q6H PRN PRN (Reason: pain) Primary Care Provider: Jad Pederson Referrals: Jad Pederson MD [Primary Care Provider, Family Practice] - As soon as possible Activity Restrictions/Additional Instructions: Take the [place] every 6-8 hours as prescribed. If your pain is not controlled at home and you do not feel safe walking you need to return to the emergency department immediately. Follow-up with your primary care doctor as soon as possible. Print Language: Montenegrin Disposition Disposition: Home, Self Care Discharge Date/Time: 04/04/25 12:22
[2025-04-04] MEDS: HYDROcodone Bitartrate/Apap 5/325 Tablet PO (10:04)
[2025-04-04 12:18] VITALS: BP 138/58; PULSE 82; RESP 18; TEMP 36.4; O2SAT 99
[2025-04-04 12:21] VITALS: BP 138/58; PULSE 82; RESP 18; TEMP 36.4; O2SAT 99
== END 2025-04-04 12:22 | disposition home or self-care (01) ==
PROVIDERS: Emergency Provider Student in an Organized Health Care Education/Training Program; PCP Family Medicine; Visit Provider Student in an Organized Health Care Education/Training Program
DX: S32.049A Unspecified fracture of fourth lumbar vertebra, initial encounter for closed fracture (principal); M25.551 Pain in right hip; Z90.710 Acquired absence of both cervix and uterus; E78.00 Pure hypercholesterolemia, unspecified; S70.01XA Contusion of right hip, initial encounter; W19.XXXA Unspecified fall, initial encounter; I10 Essential (primary) hypertension; F41.9 Anxiety disorder, unspecified; Z79.899 Other long term (current) drug therapy
CPT/HCPCS: 72192; 99284; A4216

== ENCOUNTER 2025-04-08 05:45 | Inpatient (IN) | payer MEDICARE, SELFPAY ==
[2025-04-08] VITALS (8 sets, daily range): BP systolic 145–185; BP diastolic 73–105; PULSE 87–98; RESP 16–20; TEMP 36.4–37.2; O2SAT 95–98; BMI 38.6; BMI 37.2
--- NOTE | 2025-04-08 06:10 | CT_ITS ---
PROCEDURE: CT/Spine Lumbar without Contrast
[2025-04-08 06:26] LABS: Hematocrit 38.5 % (37-47); Hemoglobin 11.2 g/dL (12.0-15.0); Immature Granulocytes Count 0.040 X10^3/uL (0.0-0.0); Mean Corp Hgb Conc 29.1 g/dL (32-36); Mean Corpuscular Volume 68.9 fL (81-99); Mean Platelet Vol. 10.4 fl (6.2-12.0); NRBC Flagged by Analyzer 0 % (0-5); Platelet Count 349 K/mm3 (150-450); RBC Distribution Width CV 17.4 % (11.6-14.6); RBC Distribution Width SD 41.1 fl (35.1-43.9); Red Blood Count 5.59 M/mm3 (4.2-5.4); White Blood Count 10.4 K/mm3 (4.4-11.0)
[2025-04-08 06:45] LABS: Anion Gap 12 (5-15); BUN 18 mg/dL (4-19); BUN/Creat Ratio 28.9 RATIO (10-20); Calcium,Total 9.0 mg/dL (7.6-11.0); Carbon Dioxide 27.5 mmol/L (21.0-32.0); Chloride 97 mmol/L (98-108); Estimated Creatinine Clearance 69.15 ml/min (50-250); Glucose 137 mg/dL (70-99); Potassium 3.2 mmol/L (3.3-5.1)
[2025-04-08 07:05] LABS: Mucous, Urine 0 SEEN /hpf (<or=2+); Squamous Epithelial Cells - UA 0 SEEN /hpf (5-10)
[2025-04-08 07:16] LABS: Color, Urine Yellow (Yellow); Glucose, Dipstick Normal (Normal); Ketone-Dipstick Negative (Negative); Leukocyte Esterase-Dipstick Negative /ul (Negative); Nitrite-Dipstick Negative (Negative); Occult Blood-Urine 25 /ul (Negative); Protein-Dipstick 100 mg/dl (Negative); Specific Gravity, Urine 1.020 (1.002-1.030); Urine Bilirubin Dipstick Negative (Negative)
[2025-04-08 07:25] LABS: Red Blood Cells-Urine 0-5 SEEN /hpf (0-5)
--- NOTE | 2025-04-08 07:57 | EX.ED.DYSGE1 ---
HPI History of Present Illness Chief Complaint: Back Informant: patient Narrative Narrative: Patient is a 74-year-old female with past medical history of hypertension hyperlipidemia. She states that she is send she lives alone. She states she does have a roommate but the remainder does not help out much. She was seen on April 02 secondary to mechanical fall causing back pain. She was then reevaluated on April 04. She has a reported L4 compression fracture. She states she was given [place] and had mild symptom improvement but despite using this has had persistent back pain making it difficult to ambulate. She states for the past 2 days she has been sitting in her recliner as she cannot get up secondary to the pain. She denies any fevers chills or dysuria. She denies any loss of bowel or bladder control or IV drug use. As the pain is persistent and keeping her from performing her activities of daily living she eventually called EMS and was brought to the hospital for repeat evaluation [facility] Medical History Anxiety Depression Urinary incontinence High cholesterol Hypertension Home Medications ?Medication ?Instructions ?Recorded ?Last Taken ?Type citalopram 40 mg tablet 40 mg PO DAILY 07/06/18 04/02/25 08:00 History lisinopril 20 mg tablet 20 mg PO DAILY 07/06/18 04/02/25 08:05 History omeprazole 20 mg capsule,delayed 20 mg PO DAILY 07/06/18 04/02/25 08:00 History release simvastatin 40 mg tablet 40 mg PO QHS 07/06/18 04/02/25 08:00 History oxybutynin chloride 15 mg 15 mg PO DAILY 04/02/25 04/02/25 08:00 History tablet,extended release 24 hr hydrocodone-acetaminophen 5-325mg 1 tab PO Q6H PRN PRN Pain 3 days 04/04/25 Unknown Rx 5mg-325mg #10 TABLETS aspirin 81 mg tablet 81 mg PO DAILY 04/08/25 Unknown History Allergy/AdvReac Type Severity Reaction Status Date / Time Sulfa (Sulfonamide Allergy Mild PT UNSURE Verified 04/08/25 05:46 Antibiotics) OF REACTION Surgical History H/O: hysterectomy Social History Smoking Status: Never smoker ROS ROS ED Constitutional Constitutional ED: Denies chills or fever(s) Eyes Eyes: Denies change in vision ENT ENT ED: Denies sore throat Cardiovascular Cardiovascular: Denies chest pain Respiratory/Chest Respiratory/Chest: Denies cough or dyspnea Gastrointestinal Gastrointestinal: Denies abdominal pain, diarrhea, nausea or vomiting Genitourinary Genitourinary ED: Denies dysuria Musculoskeletal Musculoskeletal: Reports back pain Integumentary Denies rash Neurologic Neurologic: Denies headache(s) or paresthesias Hematologic/Lymphatic Hematologic/Lymphatic: Denies easy bleeding or easy bruising EXAM Physical Exam Const Vital Signs: 04/08/25 05:47 04/08/25 07:46 04/08/25 08:05 Temperature 98.4 F 98.4 F Temperature Source Oral Pulse Rate 95 93 93 Respiratory Rate 16 16 16 Blood Pressure 160/90 H 165/88 H 165/88 H Blood Pressure Mean 113 113 113 Pulse Ox 97 96 96 Oxygen Delivery Method Room Air Room Air Positive well nourished, well developed and obese General Appearance ED: well developed; Negative for pallor Nutritional Appearance: obese HEENT HEENT Narrative: Normocephalic atraumatic Eyes PERRL and EOMs intact bilaterally General Eye ED: Negative for scleral icterus Neck supple Resp normal respiratory effort and clear to auscultation bilaterally Cardio regular rate and regular rhythm Rate: other Other Details: Radial and carotid pulses are equal and symmetric GI non-tender, non-distended and no masses GI Narrative: Soft nontender nondistended with hypoactive bowel sound. No voluntary guarding or rigidity or pulsatile mass. Auscultation: hypoactive bowel sounds Palpation: soft Back/Spine Back/Spine Narrative: No saddle anesthesia. Negative straight leg raise. No clonus or Babinski. Patellar reflexes are plus 1 out of 4 bilaterally. Extremity normal to inspection Extremity Narrative: No bony deformity or joint effusion No signs of long bone injury Neuro oriented x3, CN's II-XII intact bilaterally and no sensory deficits noted Neuro Narrative: Strength in lower extremities is weak and bilaterally at plus 3 out of 5 and patient states this weakness is due to pain with active motion. No focal neurologic deficit noted Sensorium / Orientation: alert Psych mental status grossly normal Skin no rashes or lesions noted and no wounds General Skin Exam: Negative for jaundice or pallor MDM MDM MDM Narrative Medical decision making narrative: Patient arrived to the ER hypertensive but has a past medical history of this. Otherwise vitals are stable. She states has been no repeat trauma but simply because of persistent pain she has not been able to get up out of her chair or perform her activities of daily living. She denied loss of bowel or bladder control or IV drug use going against cauda equina or epidural abscess. She also states has been no recent injections or procedures going against discitis or osteomyelitis. With patient's intractable pain and inability to perform her ADLs I did like to perform basic laboratory studies to assess for urinary tract infection versus acute kidney injury versus electrolyte abnormality. Workup revealed no acute finding. Repeat CT scan of the lumbar spine confirmed both an L2 and L4 fracture. At this time because of the intractable pain and her inability perform her ADLs do not feel she is safe for discharge. Therefore I discussed the case with the hospitalist who agrees to accept the patient for continued care. The patient does note that if she requires placement and rehab to help with balance and strength training and performing her ADLs then she will do this as it is necessary for her to return home. History & Record Review Discussion w/independent historian: Patient Lab Data Attestation: I reviewed the patient's lab results. Labs: Laboratory Results - last 24 hr 04/08/25 04/08/25 06:21 06:58 WBC 10.4 RBC 5.59 H Hgb 11.2 L Hct 38.5 MCV 68.9 L MCH 20.0 L MCHC 29.1 L RDW Std Deviation 41.1 RDW Coeff of Dafne 17.4 H Plt Count 349 MPV 10.4 Immature Gran % (Auto) 0.400 Neut % (Auto) 84.8 H Lymph % (Auto) 7.2 L [place] % (Auto) 6.4 Eos % (Auto) 0.7 Baso % (Auto) 0.5 Absolute Neuts (auto) 8.8 H Absolute Lymphs (auto) 0.75 L Nucleated RBC % 0 Sodium 137 Potassium 3.2 L Chloride 97 L Carbon Dioxide 27.5 Anion Gap 12 BUN 18 Creatinine 0.63 L Estim Creat Clear Calc 69.15 Est GFR (MDRD) Non-Af 93 BUN/Creatinine Ratio 28.9 H Glucose 137 H Calcium 9.0 Urine Color Yellow Urine Clarity Clear Urine pH 6.5 Ur Specific Tam[place] 1.020 Urine Protein 100 H Urine Glucose (UA) Normal Urine Ketones Negative Urine Occult Blood 25 H Urine Nitrite Negative Urine Bilirubin Negative Urine Urobilinogen 1 H Ur Leukocyte Esterase Negative Urine RBC 0-5 SEEN Urine WBC 0 SEEN Ur Squamous Epith Cells 0 SEEN Urine Bacteria 0 SEEN Urine Mucus 0 SEEN Radiography Diagnostic Testing: Clinical Impression(s) from Imaging Studies Lumbar Spine CT 04/08/25 06:10 IMPRESSION: There is a 2.5 cm low-density right adrenal lesion partly visible, Hounsfield units = 9, benign adrenal adenoma. There is a 50% anterior compression deformity at L2. There is a 40% anterior compression deformity at L4. MRI or bone scan could be helpful to determine chronicity if clinically indicated. There is grade 1 retrolisthesis at L2-3, 0.4 cm. There is grade 1 retrolisthesis at L5-S1, 0.4 cm. There is a retropulsed component of the posterior endplate of L4, measuring 0.45 cm in AP diameter. There is moderate central canal stenosis at L4-5, with lateral recess and foraminal narrowing. Reading Location: [facility] Management Discussion w/another healthcare provider: Hospitalist Discharge Plan Triage Chief Complaint: Back ED Provider: Willie Blackburn Dx/Rx/DC Orders Clinical Impression: Closed compression fracture of lumbar vertebra, Intractable back pain, Inability to walk, HTN (hypertension), Hyperlipidemia Prescriptions: No Action citalopram 40 MG tablet 40 mg PO DAILY lisinopril 20 MG tablet 20 mg PO DAILY simvastatin 40 MG tablet 40 mg PO QHS omeprazole 20 MG capsule 20 mg PO DAILY oxybutynin chloride 15 mg tablet extended release 24hr 15 mg PO DAILY hydrocodone-acetaminophen 5-325 mg tablet 1 tab PO Q6H PRN PRN (Reason: Pain) 3 Days Qty: 10 0RF aspirin 81 mg tablet 81 mg PO DAILY Primary Care Provider: Jad Pederson Referrals: Jad Pederson MD [Primary Care Provider, Family Practice] Print Language: Scottish
--- NOTE | 2025-04-08 09:11 | MRI_ITS ---
PROCEDURE: MRI/Spine Lumbar (Routine)
--- NOTE | 2025-04-08 09:53 | PCM.HP.STD ---
HPI - General General Date of Admission: 04/08/25 Date of Service: 04/08/25 Chief Complaint: Low back pain, inability to perform ADLs at home HPI Narrative ANITA LOYD, is a 74 F who presents to the emergency room at [facility] complaining of low back pain and inability to ambulate and perform ADLs at home. Patient was seen in the emergency room recently on 04/02/2025 after suffering a fall at home and injuring her lower back. X-rays done at that time showed no fractures, she returned to the emergency room on 04/04/2025 complaining of lower back pain and a pelvic CT done at that time showed an L4 compression fracture with approximately 10% loss of height. She has been taking pain medications at home but finds it increasingly difficult to even walk or get out of a chair. Workup in the emergency room today included a CT of the lumbar spine, there was noted to be a 50% anterior compression deformity at L2 and a 40% deformity at L4. In addition there was grade 1 retrolisthesis at L2-3 and grade 1 retrolisthesis at L5-S1, finally there was a retropulsed component of the posterior endplate of L4 measuring 0.45 cm in AP diameter. Moderate central canal stenosis at L4-L5 was noted to be present. Lab work included a CBC which was unremarkable except for hemoglobin of 11.2, CHEM panel was remarkable for a potassium of 3.2. Urinalysis was unremarkable. Patient was given IV morphine for pain but still had significant back discomfort, she will be admitted for acute compression fracture of L2 and L4, she will be seen in consultation by spinal surgery for possible kyphoplasty, MRI of the lumbar spine will be obtained and she will be given IV narcotics and seen by PT and OT. [facility] Medical History Anxiety Depression Urinary incontinence High cholesterol Hypertension Home Medications ?Medication ?Instructions ?Recorded ?Last Taken ?Type citalopram 40 mg tablet 40 mg PO DAILY 07/06/18 04/02/25 08:00 History lisinopril 20 mg tablet 20 mg PO DAILY 07/06/18 04/02/25 08:05 History omeprazole 20 mg capsule,delayed 20 mg PO DAILY 07/06/18 04/02/25 08:00 History release simvastatin 40 mg tablet 40 mg PO QHS 07/06/18 04/02/25 08:00 History oxybutynin chloride 15 mg 15 mg PO DAILY 04/02/25 04/02/25 08:00 History tablet,extended release 24 hr hydrocodone-acetaminophen 5-325mg 1 tab PO Q6H PRN PRN Pain 3 days 04/04/25 Unknown Rx 5mg-325mg #10 TABLETS aspirin 81 mg tablet 81 mg PO DAILY 04/08/25 Unknown History Allergy/AdvReac Type Severity Reaction Status Date / Time Sulfa (Sulfonamide Allergy Mild PT UNSURE Verified 04/08/25 05:46 Antibiotics) OF REACTION Surgical History H/O: hysterectomy Social History Smoking Status: Never smoker ROS Constitutional Constitutional: Denies anorexia, change in weight, chills, fatigue, fever(s), malaise, night sweats or weakness Eyes Eyes: Denies blurry vision, change in vision, discharge from eye(s) or eye pain Cardiovascular Cardiovascular: Denies chest pain, claudication, dyspnea on exertion, edema or palpitations Respiratory/Chest Respiratory/Chest: Denies cough, hemoptysis, shortness of breath at rest or shortness of breath with exertion Gastrointestinal Gastrointestinal: Denies abdominal pain, constipation, diarrhea, hematemesis, hematochezia, melena, nausea or vomiting Genitourinary Genitourinary: Denies dysuria, hematuria, urinary frequency, urinary hesitancy, urinary incontinence or urinary urgency Musculoskeletal Musculoskeletal: Reports back pain; Denies joint pain, joint stiffness, joint swelling, myalgias or neck pain Neurologic Neurologic: Denies abnormal gait, abnormal speech, confusion, dizziness, focal weakness, headache(s), loss of vision, numbness, other visual disturbances, paresthesias, syncope or tingling Psychiatric Psychiatric: Denies anxiety, cognitive impairment, depression, irritability, mood swings or suicidal ideation Endocrine Endocrinology: Denies change in body appearance, cold intolerance, excessive sweating, heat intolerance, polydipsia or polyuria Hematologic/Lymphatic Hematologic/Lymphatic: Denies none, anemia, easy bleeding, easy bruising or lymphadenopathy Allergic/Immunologic Allergic/Immunologic: Denies rhinitis, urticaria, eczemia or asthma Vital Signs Vital Signs Vital Signs: 04/08/25 05:47 04/08/25 07:46 04/08/25 08:05 Temperature 98.4 F 98.4 F Temperature Source Oral Pulse Rate 95 93 93 Respiratory Rate 16 16 16 Blood Pressure 160/90 H 165/88 H 165/88 H Blood Pressure Mean 113 113 113 Pulse Ox 97 96 96 Oxygen Delivery Method Room Air Room Air 04/08/25 09:00 Temperature Temperature Source Pulse Rate 90 Respiratory Rate 16 Blood Pressure 185/105 H Blood Pressure Mean 131 Pulse Ox 96 Oxygen Delivery Method Weight Weight: 98.9 kg Body Mass Index (BMI) 38.6 Physical Exam Narrative Patient was not ambulated during her exam Const alert, oriented x3, no apparent distress and healthy appearing Constitutional Narrative: Patient appears her stated age General Appearance: cooperative, well kempt and well developed Orientation / Consciousness: awake, oriented to person, oriented to place and oriented to time HEENT normocephalic, head/scalp atraumatic and moist oral mucous membranes Eyes PERRL, EOMs intact bilaterally and conjunctivae normal Neck supple, no JVD, thyroid normal and no carotid bruits General: trachea midline Resp normal respiratory effort, no retractions, no use of accessory muscles and clear to auscultation bilaterally Auscultation: Negative for rales, rhonchi or wheezes Cardio regular rate, regular rhythm, S1 normal heart sound, S2 normal heart sound, no murmurs, no rub and no gallops GI normal to inspection, nondistended, normoactive bowel sounds, soft to palpation, non-tender and non-distended Extremity no clubbing, cyanosis or edema Skin no rashes or lesions noted General Skin Exam: no breakdown Neuro oriented x3, CN's II-XII intact bilaterally, no focal motor deficits and no sensory deficits noted Sensorium / Orientation: awake and alert Speech: speech normal Psych affect normal Results Lab / Micro Data 04/08/25 06:21 04/08/25 06:21 Labs: Laboratory Results - last 24 hr 04/08/25 06:21: WBC 10.4, RBC 5.59 H, Hgb 11.2 L, Hct 38.5, MCV 68.9 L, MCH 20.0 L, MCHC 29.1 L, RDW Std Deviation 41.1, RDW Coeff of [place]afne 17.4 H, Plt Count 349, MPV 10.4, Immature Gran % (Auto) 0.400, Neut % (Auto) 84.8 H, Lymph % (Auto) 7.2 L, [place] % (Auto) 6.4, Eos % (Auto) 0.7, Baso % (Auto) 0.5, Absolute Neuts (auto) 8.8 H, Absolute Lymphs (auto) 0.75 L, Nucleated RBC % 0, Sodium 137, Potassium 3.2 L, Chloride 97 L, Carbon Dioxide 27.5, Anion Gap 12, BUN 18, Creatinine 0.63 L, Estim Creat Clear Calc 69.15, Est GFR (MDRD) Non-Af 93, BUN/Creatinine Ratio 28.9 H, Glucose 137 H, Calcium 9.0 04/08/25 06:58: Urine Color Yellow, Urine Clarity Clear, Urine pH 6.5, Ur Specific [place] 1.020, Urine Protein 100 H, Urine Glucose (UA) Normal, Urine Ketones Negative, Urine Occult Blood 25 H, Urine Nitrite Negative, Urine Bilirubin Negative, Urine Urobilinogen 1 H, Ur Leukocyte Esterase Negative, Urine RBC 0-5 SEEN, Urine WBC 0 SEEN, Ur Squamous Epith Cells 0 SEEN, Urine Bacteria 0 SEEN, Urine Mucus 0 SEEN Imaging Radiology Impression Lumbar Spine CT 04/08/25 06:10 IMPRESSION: There is a 2.5 cm low-density right adrenal lesion partly visible, Hounsfield units = 9, benign adrenal adenoma. There is a 50% anterior compression deformity at L2. There is a 40% anterior compression deformity at L4. MRI or bone scan could be helpful to determine chronicity if clinically indicated. There is grade 1 retrolisthesis at L2-3, 0.4 cm. There is grade 1 retrolisthesis at L5-S1, 0.4 cm. There is a retropulsed component of the posterior endplate of L4, measuring 0.45 cm in AP diameter. There is moderate central canal stenosis at L4-5, with lateral recess and foraminal narrowing. Reading Location: [facility] Assessment & Plan Assessment/Plan (1) Closed compression fracture of lumbar vertebra: PLAN: Plan Uncontrolled pain secondary to compression fractures of the lumbar spine at L2 and L4-patient will be admitted to MedSurg 3, she will be seen by PT and OT, he will be given IV and p.o. analgesics, she will be seen by spinal surgery in consultation and undergo an MRI of her lumbar spine. #2 essential hypertension-patient will remain on her present medication #3 acute debility secondary to #1-again patient will be seen by PT and OT, as possible she will need to go to a retirement facility for short-term rehab services #4 hyperlipidemia-patient is on simvastatin #5 chronic depression-patient is on citalopram Total clinical time spent by myself addressing the patient's medical issues, reviewing all of her data, and collaborating with patient's care team: 55 minutes Charges/Coding Visit Charges Inpatient E&M: 99487 Init Hosp L2
[2025-04-08] MEDS: Heparin Injection (Vial) 5,000 UNIT/ML VIAL 5000 UNIT SC ×2 (10:59→23:27)
[2025-04-08] MEDS: Tolterodine Tartrate 4 MG CAP.SA PO (10:59)
[2025-04-08] MEDS: 0.9% Saline Lock 10 ML Syringe IV (23:37)
[2025-04-09] VITALS (9 sets, daily range): BP systolic 137–153; BP diastolic 82–98; PULSE 96–138; RESP 16–18; TEMP 36.3–36.9; O2SAT 95–98
[2025-04-09] MEDS: Heparin Injection (Vial) 5,000 UNIT/ML VIAL 5000 UNIT SC (08:04)
[2025-04-09] MEDS: Tolterodine Tartrate 4 MG CAP.SA PO (08:05)
--- NOTE | 2025-04-09 13:17 | CASEMGMT ---
LOREN DINH Assessment Face to Face with patient for initial transition planning/care coordination assessment. LOREN DINH introduced self and role at [facility], pt voices understanding. Pt is A&Ox4 and is resting comfortably in the chair and is calm. Care providers, pharmacy, and demographics verified. Admitting dx: Compression Fracture Lumbar Spine PCP: Jad Pederson Specialists: Mike. Dr Fitch is currently consulted Preferred Pharmacy: [facility] Insurance: [employer] [facility] Prescription Benefit: Yes LNOK: Gwen Ladd (Friend/ Roommate) Living Arrangements: Pt lives with her friend in a ranch style home with 3 steps to enter ADLs/IADLs: Pt states that she is indep at baseline but is currently requiring assistance. Noted that the pt had a fall on 04/02. Pt denies wanting medical alert resources and states that she has one at home. Pt states that her friend is normally able to help her at home but that the pt is currently requiring more than what her friend can provide. Transportation: Self, neighbor, squad. CM to follow for needs DME: FWW, Rollator, hospital bed, shower chair, BP Machine, pulse ox, sit to stand markus HHC/SNF: denies hx of Pt?s goal: TBD Plan: TBD. Ortho reports pt may undergo a kyphoplasty. PT to eval subsequently to assist with DC planning. At this time, the pt reports that she prefers to go home at the time of DC but states that she would be willing to go to the [facility] TCU if SNF is recommended. CM to continue to follow. Pt denies further questions at this time. Report given to JUSTIN PIMENTEL CM. Lima Garcia RN, CM
--- NOTE | 2025-04-09 16:09 | CONS.ORTHO ---
HPI Consult Data Date of Consult: 04/09/25 HPI Narrative HPI Narrative: ANITA LOYD, is a 74 F who presents with low back pain after fall. She fell backwards onto her buttock about a week ago and went to the emergency room and was discharged with pain control. She came back again to the emergency room on Monday morning and was unable to get up and walk around because of severe pain. She was admitted for placement. I saw the patient in room 320 on 04/08/2025 at 6 PM. Patient was in bed with severe low back pain. She denies any radiating pain to the lower extremities. She has not been able to be up and ambulating since admission. She lives with a roommate whom she takes care of. She denies having any family members in town. She mentions of an older injury 10 years ago but was not diagnosed with any fractures. PMH: Anxiety Depression Urinary incontinence High cholesterol Hypertension PFS Medical History Anxiety Depression Urinary incontinence High cholesterol Hypertension Home Medications ?Medication ?Instructions ?Recorded ?Last Taken ?Type citalopram 40 mg tablet 40 mg PO DAILY 07/06/18 04/02/25 08:00 History lisinopril 20 mg tablet 20 mg PO DAILY 07/06/18 04/02/25 08:05 History omeprazole 20 mg capsule,delayed 20 mg PO DAILY 07/06/18 04/02/25 08:00 History release simvastatin 40 mg tablet 40 mg PO QHS 07/06/18 04/02/25 08:00 History oxybutynin chloride 15 mg 15 mg PO DAILY 04/02/25 04/02/25 08:00 History tablet,extended release 24 hr hydrocodone-acetaminophen 5-325mg 1 tab PO Q6H PRN PRN Pain 3 days 04/04/25 Unknown Rx 5mg-325mg #10 TABLETS aspirin 81 mg tablet 81 mg PO DAILY 04/08/25 Unknown History Allergy/AdvReac Type Severity Reaction Status Date / Time Sulfa (Sulfonamide Allergy Mild PT UNSURE Verified 04/08/25 05:46 Antibiotics) OF REACTION Surgical History H/O: hysterectomy Social History Smoking Status: Never smoker Vital Signs Vital Signs Vital Signs: 04/08/25 20:50 04/08/25 22:00 04/08/25 22:55 Temperature 97.5 F L Temperature Source Oral Pulse Rate 97 Pulse Strength Normal (2+) Respiratory Rate 18 Respiratory Effort Normal Non-Labored Respiratory Depth Normal Respiratory Pattern Normal Blood Pressure 145/73 H Blood Pressure Mean 97 Blood Pressure Source Monitor Blood Pressure Position Semi-Fowlers Blood Pressure Location Right Arm Pulse Ox 95 Oxygen Delivery Method Room Air Room Air 04/08/25 23:26 04/09/25 01:08 04/09/25 06:47 Temperature 97.7 F L 97.5 F L Temperature Source Oral Oral Pulse Rate 87 97 Pulse Strength Respiratory Rate 20 H 18 Respiratory Effort Normal Non-Labored Respiratory Depth Normal Respiratory Pattern Normal Blood Pressure 157/100 H 149/82 H Blood Pressure Mean 119 104 Blood Pressure Source Monitor Monitor Blood Pressure Position Semi-Fowlers Semi-Fowlers Blood Pressure Location Right Arm Right Arm Pulse Ox 98 98 Oxygen Delivery Method Room Air Room Air Room Air 04/09/25 07:56 04/09/25 07:58 04/09/25 08:11 Temperature 97.5 F L Temperature Source Oral Pulse Rate 105 H Pulse Strength Normal (2+) Respiratory Rate 18 Respiratory Effort Normal Non-Labored Respiratory Depth Normal Respiratory Pattern Normal Blood Pressure 137/90 H Blood Pressure Mean 105 Blood Pressure Source Monitor Blood Pressure Position Supine Blood Pressure Location Right Arm Pulse Ox 95 Oxygen Delivery Method Room Air Room Air 04/09/25 13:26 04/09/25 14:00 04/09/25 14:39 Temperature 97.4 F L 98.4 F Temperature Source Oral Oral Pulse Rate 132 H 98 Pulse Strength Respiratory Rate 18 18 Respiratory Effort Normal Non-Labored Respiratory Depth Normal Respiratory Pattern Normal Blood Pressure 141/85 H 152/83 H Blood Pressure Mean 103 106 Blood Pressure Source Monitor Monitor Blood Pressure Position Semi-Fowlers Semi-Fowlers Blood Pressure Location Left Arm Right Arm Pulse Ox 96 96 Oxygen Delivery Method Room Air Room Air Room Air Weight Weight: 210 lb 5.136 oz Body Mass Index (BMI) 37.2 Physical Exam Narrative Examination the back shows tenderness in the midline in the lower lumbar region. Neurologic evaluation of lower extremity shows 5 out of 5 power in all muscles normal sensations in all dermatomes. There is no hyperreflexia. Lab / Micro Data 04/08/25 06:21 04/08/25 06:21 Imaging Radiology Impression Lumbar Spine MRI 04/08/25 09:11 IMPRESSION: Multilevel degenerative changes. Chronic anterior wedging of L2. New compression fracture of L4 without retropulsion. See above comments Reading Location: [facility] Assessment & Plan Assessment/Plan (1) Compression fracture of L4 vertebra: QUALIFIERS: Encounter type: initial encounter Qualified Code(s): S32.040A - Wedge compression fracture of fourth lumbar vertebra, initial encounter for closed fracture (2) Compression fracture of L2: QUALIFIERS: Encounter type: sequela Qualified Code(s): S32.020S - Wedge compression fracture of second lumbar vertebra, sequela PLAN: Plan Reviewed CT and MRI of the lumbar spine. These show L2 and L4 compression fracture deformities. MRI confirms that the L2 is an old healed chronic fracture deformity right L4 is the acute compression fracture. There is mild retropulsion with mild stenosis at the L4-5 segment. Vacuum phenomenon l4-5 disc space. Discussed imaging findings in detail. Patient has acute L4 compression fracture which is causing her significant difficulty with pain and inability to ambulate because of the pain. Discussed treatment options which include rest, analgesia, bracing versus cement augmentation. Patient has had worsening of pain over the last week such that she is not being able to ambulate over the last 2 days. Discussed kyphoplasty cement augmentation procedure in detail. Discussed all risk benefits and alternatives. Patient would like to think over the kyphoplasty option and let us know if she would like to get it done during the admission. Regardless, patient would likely require placement to rehab. All questions answered. Charges/Coding Visit Charges Inpatient E&M: 87794 Init Hosp L3
--- NOTE | 2025-04-09 19:11 | PN.HOSP_ITS ---
Reason for Visit
--- NOTE | 2025-04-09 19:11 | PCM.PN.HOSP ---
Reason for Visit Chief Complaint: Low back pain, inability to perform ADLs at home Subjective Subjective Patient was seen and examined today, she told me that she would like to undergo kyphoplasty which was recommended by spinal surgery. Objective Data Objective Data Vital Signs: Vital Signs Temp Pulse Resp BP Pulse Ox O2 Del Method 98.4 F 98 18 152/83 H 96 Room Air 04/09/25 14:39 04/09/25 14:39 04/09/25 14:39 04/09/25 14:39 04/09/25 14:39 04/09/25 14:39 Oxygen Delivery Method Room Air Weight: 95.4 kg Body Mass Index (BMI) 37.2 Intake & Output: Intake and Output for Last 24 Hours 04/07/25 04/08/25 04/09/25 23:59 23:59 23:59 Intake Total 500 / 500 120 / 120 Output Total 400 / 400 Balance 500 / 500 -280 / -280 Lab / Micro Data 04/08/25 06:21 04/08/25 06:21 Radiography Diagnostic Testing: Radiology Impression Lumbar Spine MRI 04/08/25 09:11 IMPRESSION: Multilevel degenerative changes. Chronic anterior wedging of L2. New compression fracture of L4 without retropulsion. See above comments Reading Location: [facility] Physical Exam Narrative Patient was not ambulated during her physical exam Const alert, oriented x3, no apparent distress and healthy appearing General Appearance: cooperative, well kempt and well developed Orientation / Consciousness: awake, oriented to person, oriented to place and oriented to time HEENT normocephalic and moist oral mucous membranes Eyes PERRL, EOMs intact bilaterally and conjunctivae normal Neck supple, no JVD and thyroid normal General: trachea midline Resp normal respiratory effort, no retractions, no use of accessory muscles and clear to auscultation bilaterally Auscultation: Negative for rales, rhonchi or wheezes Cardio regular rate, regular rhythm, S1 normal heart sound, S2 normal heart sound, no murmurs, no rub and no gallops GI normal to inspection, nondistended, normoactive bowel sounds, soft to palpation, non-tender and non-distended Extremity no clubbing, cyanosis or edema Skin no rashes or lesions noted General Skin Exam: no breakdown Neuro oriented x3, CN's II-XII intact bilaterally, no focal motor deficits and no sensory deficits noted Sensorium / Orientation: awake and alert Speech: speech normal Psych affect normal Assessment & Plan Assessment/Plan (1) Compression fracture of L4 vertebra: QUALIFIERS: Encounter type: initial encounter Qualified Code(s): S32.040A - Wedge compression fracture of fourth lumbar vertebra, initial encounter for closed fracture (2) Closed compression fracture of lumbar vertebra: PLAN: Plan 1. Uncontrolled pain secondary to acute compression fractures of the lumbar spine at L4-patient will tentatively undergo a kyphoplasty tomorrow, I discussed this with spinal surgery #2 essential hypertension-patient will remain on her present medication #3 acute debility secondary to #1-again patient will be seen by PT and OT, as possible she will need to go to a assisted facility for short-term rehab services #4 hyperlipidemia-patient is on simvastatin #5 chronic depression-patient is on citalopram Total clinical time spent by myself addressing the patient's medical issues, reviewing all of her data, and collaborating with patient's care team: 35 minutes Charges/Coding Visit Charges Inpatient E&M: 46823 Subs Hosp L2
--- NOTE | 2025-04-09 20:38 | EKG12_ITS ---
Test Reason : PRE-OP
--- NOTE | 2025-04-09 20:40 | PCM.HOSP.N ---
Hospitalist Note Patient with onset increased tachycardia from baseline, patient had similar episode with tachycardia transiently the day prior and during the day following activities possibly secondary to pain. Discussed with direct support staff member and encouraged pain regimen, reassess following, will obtain EKG to be cautious but appears to be sinus tachycardia.
[2025-04-09] MEDS: Polyethylene Glycol 3350 17 GM PACKET PO (21:06)
[2025-04-09 23:15] LABS: D-Dimer Quantitative (DVT/PE) 0.93 FEU/ug/m (0.27-0.49)
--- NOTE | 2025-04-09 23:16 | CT_ITS ---
PROCEDURE: CT/CTA Chest W/WO Contrast
[2025-04-09] MEDS: 0.9% Normal Saline (1000mL) 1,000 ML 75 ML IV (23:54)
[2025-04-10] VITALS (12 sets, daily range): BP systolic 150–171; BP diastolic 71–100; PULSE 83–98; RESP 16–18; TEMP 36.2–36.9; O2SAT 94–96; BMI 37.2
[2025-04-10] MEDS: Lactated Ringers 1,000 ML 15 ML IV (11:08)
--- NOTE | 2025-04-10 11:10 | PCM.PRE.AN2 ---
ASA Classification* ASA Classification ASA Classification: 3 Assessment & Plan Anesthesia* Anesthesia Assessment Anesthesia Assessment: Discussed sedation and/or anesthesia options, risks, benefits, and alternatives with patient/parents/legal guardian/POA. Questions invited. The patient/parents/legal guardian/POA seems to understand and agrees to proceed with anesthesia plan. Reviewed the physical assessment, medical history, allergy history and patient home medications list prior to surgery/procedure/anesthetic and documented any changes. Performed airway and anesthesia risk assessments. Anesthesia Type Anesthesia Type: General History Source History Obtained from:: Patient and Chart Anesthesia Focused Assessment* Temperature: 97.1 F Pulse Rate: 96 Blood Pressure: 154/92 Respiratory Rate: 18 Pulse Ox: 94 Oxygen Delivery Method: Room Air Airway Assessment Mouth opens: >3 cm Mallampati Score: IV Teeth Condition: Missing (Edentulous on top. Lower teeth are tight.) Neck Range of motion (ROM): Limited ROM (Somewhat Decreased) Labs Anesthesia Preop lab: CBC WBC, (4.4-11.0) 10.4 K/mm3 04/08/25, 06:21 RBC, (4.2-5.4) 5.59 M/mm3 H 04/08/25, 06:21 Hgb, (12.0-15.0) 11.2 g/dL L 04/08/25, 06:21 Hct, (37-47) 38.5 % 04/08/25, 06:21 Plt Count, (150-450) 349 K/mm3 04/08/25, 06:21 CHEMISTRY Potassium, (3.3-5.1) 3.2 mmol/L L 04/08/25, 06:21 Sodium, (133-145) 137 mmol/L 04/08/25, 06:21 BUN, (4-19) 18 mg/dL 04/08/25, 06:21 Creatinine, (0.70-1.20) 0.63 mg/dL L 04/08/25, 06:21 Glucose, (70-99) 137 mg/dL H 04/08/25, 06:21 COAG Pre-Assessment Diagnosis/Proposed Procedure Planned Operative Procedure(s): Kyphoplasty at lumbar 4 Anesthesia History Anesthesia History - continuous still operator: Anesthesia History - continuous still operator Hx Hospitalization Any Problems With Anesthesia No 04/09/25 21:57 Cholinesterase deficiency No 04/09/25 21:57 You/Your Family Experience No 04/09/25 21:57 fever (hyperthermia) with Relationship Recent Exposure to Contagious No 04/09/25 21:57 Disease Does patient have nerve No 04/09/25 21:57 stimulator Patient instructed to have No 04/09/25 21:57 device shut off --Does patient have Pacemaker or ICD? When Was Last Pacemaker Check QUESTION #4 FULL TEXT: You/Your Family Experience fever (hyperthermia) with Anesthesia Last Oral Intake Last Oral intake: Last Oral Intake NPO since 23:00 04/10/25 11:05 Meds taken in AM with sips of Yes 04/10/25 11:05 water? Meds patient instructed to see mar 04/10/25 11:05 take am of surgery Any additional information?: Yes NPO since: 00:00 PONV PONV - continuous still operator: PONV - continuous still operator Female HX of Motion Sickness HX of N/V After Surgery Non-Smoker Duration of Surgery greater than 60 minutes Number of Risk Factors PONV Score Height & Weight Height & Weight: Anesthesia: Height & Weight Height 5 ft 3 in 04/10/25 11:05 Weight: 95.4 kg 04/10/25 11:05 Body Mass Index (BMI) 37.2 04/10/25 11:05 Respiratory Assessment Respiratory Assessment - continuous still operator: Respiratory Tract Infection Hx - continuous still operator Hx Respiratory Tract Infection No 04/09/25 21:57 STOP Sleep Apnea STOP Sleep Apnea - continuous still operator: STOP Sleep Apnea - continuous still operator Hx Hypertension Yes 04/08/25 16:41 Hx Sleep Apnea No 04/08/25 09:59 CPAP BIPAP Do you snore loudly (louder Yes 04/08/25 09:59 than talking or can be heard Do you often feel tired/ No 04/08/25 09:59 fatigued/ sleepy during daytime? Has anyone observed you stop No 04/08/25 09:59 breathing during sleep? STOP Results Positive 04/08/25 09:59 QUESTION #5 FULL TEXT : Do you snore loudly (louder than talking or can be heard through closed doors)? 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 Specify any problems Hx of Preganancy in last 3 N/A 04/08/25 09:59 Months Nurse Filling Out Transfusion TWOLF 04/08/25 09:59 & Questions: Date: 04/08/25 04/08/25 09:59 Time: 10:00 04/08/25 09:59 Patient unable to answer at this time (ie. confused, unrespo /Reproduction History /Reproductive History - continuous still operator: /Reproductive Hx- continuous still operator Hx Now No 04/09/25 21:57 Gestational Age (in weeks): EDC: Hx Hx Para Hx Section SAB No 04/09/25 21:57 Active Medications Active Medications: Current Medications Generic Name Dose Route Start Last Admin Trade Name Freq PRN Reason Stop Dose Admin Acetaminophen 650 mg 04/08/25 09:54 04/09/25 14:39 Acetaminophen 325 Mg Tablet PO 650 mg Q6H PRN PRN Administration Pain 1-10 Or Fever >100.7 Aspirin 81 mg 04/08/25 10:30 04/10/25 08:04 Aspirin 81 Mg Tab.Chew PO Not Given BREAKFAST CHAD Atorvastatin Calcium 20 mg 04/08/25 22:00 04/09/25 20:56 Atorvastatin Calcium 20 Mg Tablet PO 20 mg QHS CHAD Administration Calamine/Phenol 1 applic 04/09/25 10:00 04/10/25 08:04 Menthol/Lanolin/Calamine/Znox 113 Gm Tube TOPICAL 1 applic BID CHAD Administration Protocol Citalopram Hydrobromide 40 mg 04/08/25 10:00 04/10/25 08:05 Citalopram 40 Mg Tablet PO Not Given DAILY [facility] Heparin Sodium (Porcine) 5,000 unit 04/08/25 10:00 04/10/25 08:05 Heparin Injection (Vial) 5,000 Unit/Ml Vial SC Not Given Q12 CHAD Hydromorphone HCl 0.5 - 1 mg 04/08/25 09:54 04/09/25 20:55 Hydromorphone 1 Mg/Ml Syringe IV 0.5 mg Q3H PRN PRN Administration Pain Score 6-10 Sodium Chloride 250 mls @ 15 mls/hr 04/08/25 09:56 IV .[id number] PRN Saline Flush Sodium Chloride 250 mls @ 15 mls/hr 04/08/25 09:56 IV .[id number] PRN Additional IVPB Infusion Lactated Ringer's 1,000 mls @ 15 mls/hr 04/10/25 11:00 04/10/25 11:08 IV 15 mls/hr .Q48H CHAD Administration Lisinopril 20 mg 04/08/25 10:00 04/10/25 08:06 Lisinopril 20 Mg Tablet PO Not Given DAILY [facility] Protocol Nystatin 1 applic 04/09/25 10:00 04/10/25 08:05 Nystatin Powder 15gm Bottle TOPICAL Not Given BID [facility] Protocol Ondansetron HCl 4 mg 04/08/25 09:54 Ondansetron 4 Mg/2 Ml Vial IV Q8H PRN PRN NAUSEA/VOMITING Oxycodone HCl 10 mg 04/08/25 09:54 04/09/25 14:40 Oxycodone 5 Mg Tablet PO 10 mg Q4H PRN PRN Administration Pain Score 4-10 Pantoprazole Sodium 20 mg 04/08/25 10:00 04/10/25 08:06 Pantoprazole Sodium 20 Mg Tablet PO Not Given DAILY [facility]AD Polyethylene Glycol 17 gm 04/09/25 20:42 Polyethylene Glycol 3350 17 Gm Packet PO DAILY PRN PRN Constipation Sodium Chloride 10 - 40 ml 04/08/25 09:56 04/08/25 23:37 0.9% Saline Lock 10 Ml Syringe IV 10 ml UD PRN Administration SALINE FLUSH Tolterodine Tartrate 4 mg 04/08/25 10:00 04/10/25 08:05 Tolterodine Tartrate 4 Mg Cap.Sa PO Not Given DAILY [facility] PFSH Medical History Anxiety Depression Urinary incontinence High cholesterol Hypertension Home Medications ?Medication ?Instructions ?Recorded ?Last Taken ?Type citalopram 40 mg tablet 40 mg PO DAILY 07/06/18 04/02/25 08:00 History lisinopril 20 mg tablet 20 mg PO DAILY hypertension 07/06/18 04/10/25 History omeprazole 20 mg capsule,delayed 20 mg PO DAILY 07/06/18 04/02/25 08:00 History release simvastatin 40 mg tablet 40 mg PO QHS 07/06/18 04/02/25 08:00 History oxybutynin chloride 15 mg 15 mg PO DAILY 04/02/25 04/02/25 08:00 History tablet,extended release 24 hr hydrocodone-acetaminophen 5-325mg 1 tab PO Q6H PRN PRN Pain 3 days 04/04/25 Unknown Rx 5mg-325mg #10 TABLETS aspirin 81 mg tablet 81 mg PO DAILY 04/08/25 Unknown History Allergy/AdvReac Type Severity Reaction Status Date / Time Sulfa (Sulfonamide Allergy Mild PT UNSURE Verified 04/08/25 05:46 Antibiotics) OF REACTION Surgical History H/O: hysterectomy Social History Smoking Status: Never smoker Review of Systems (Anesthesia) ROS Narrative System reviewed and no additional complaints, except as documented.
--- NOTE | 2025-04-10 11:49 | HP.PCM_ITS ---
History and Physical
--- NOTE | 2025-04-10 11:49 | PCM.HP.BLA ---
History and Physical Saw patient in preop. Patient decided to proceed with L4 kyphoplasty. Again discussed the procedure in detail. Discussed all risk benefits and alternatives. Exam findings are similar. There is no radicular pain or any neurodeficit in the lower extremities. Please see my previous note consultation note from yesterday for details about history and physical. Discussed risks and benefits of the kyphoplasty procedure. The risks include but are not limited to infection, bleeding, extremity extravasation, cement embolism, hypertension, DVT, pulm embolism, persistent pain, persistent difficulty ambulation, fractures in future, need for further procedures in future. Patient understands and agrees to proceed with the procedure. Consent was signed.
--- NOTE | 2025-04-10 12:00 | RAD_ITS ---
PROCEDURE: RAD/Lumbar Spine 2 or 3 Views
--- NOTE | 2025-04-10 12:00 | BONBX_PTH ---
PATIENT: ANITA LOYD LOC: [facility] U#:[id number] AGE/SX: 74/F [place] [facility] [place]/08/[address]: Dr. Rosio Agarwal MD : 1950 BED: 1 DIS: 04/14/2025 SPEC #: [id number] RECD: 04/10/25 13:44 STATUS: JASON REQ #: [id number] JOCY: 04/10/25 12:[address]: Waylon Fitch DEPT: SURGICAL PATHOLOGY RECD BY: Eleuterio Yu ENTERED: 04/10/25 14:48 SP TYPE: Bone OTHR DR: DO Dr. Jad Aivna MD Tissues: A - Vertebra, NOS Procedures: Decalcification bone/plaque Surgery Specimen Level IV HEADER OPERATION: Kyphoplasty, L4 PRE-OP DIAGNOSIS: Closed compression fracture of lumbar vertebrae TISSUE SUBMITTED: A- Vertebral body lumbar 4 MICROSCOPIC DIAGNOSIS A. Vertebral body, lumbar 4, kyphoplasty: - Bone marrow fragments with trilineage hematopoiesis. MICROSCOPIC DESCRIPTION Slides are reviewed. GROSS DESCRIPTION A. Received in formalin labeled with the patient's name and date of . Designated as vertebral body lumbar 4 is a 1.4 x 0.8 x 0.1 cm aggregate of clotted blood. Definitive tissue fragments are not grossly appreciated. Entirely submitted in 1 cassette, following brief decalcification in Jerry. DC 04/10/2025 CPT:52548,38732
[2025-04-10] MEDS: Midazolam 2 MG/2 ML Syringe IV (12:05)
[2025-04-10] MEDS: Lidocaine 1% (5 ml sdv) 5 ML Vial IV (12:13)
[2025-04-10] MEDS: Cefazolin 1 GM/5 ML Vial 2 GM IV (12:15)
[2025-04-10] MEDS: TRANEXAMIC ACID 1,000 MG/10 ML ML 1000 MG IV (12:38)
[2025-04-10] MEDS: fentaNYL 100 MCG/2 ML Ampul IV (12:41)
[2025-04-10] MEDS: Bupiv/Epi 0.25% 30 ML Vial (12:50)
[2025-04-10] MEDS: Lidocaine 1% (30 ml sdv) 30 ML Vial (12:50)
--- NOTE | 2025-04-10 13:12 | OP.PCM_ITS ---
Procedures Musculoskeletal
--- NOTE | 2025-04-10 13:12 | PCM.OPRPT ---
Procedures Musculoskeletal 20xxx-29xxx: Other Procedure See Report Operative Report (Standard) Operative Information Date of Procedure: 04/10/25 Pre-Operative Diagnosis: L4 acute compression fracture Post-Operative Diagnosis: Same Surgery/Procedure Performed: L4 kyphoplasty financial services specialist: No Type of Anesthesia: MAC RN Documented Start/Stop Times: Operation Date: 04/10/25 12:00 Case Time Into Pre-Op 04/10/25 10:53 Anesthesia Start 04/10/25 12:02 Into Room 04/10/25 12:02 Procedure Start 04/10/25 12:28 Procedure End 04/10/25 13:00 Anesthesia End 04/10/25 13:07 Out of Room 04/10/25 13:07 Into Recovery 04/10/25 13:10 Procedure Start Time: 12:28 Procedure Stop Time: 13:00 Select all DRAINS/GRAFTS/IMPLANTS that apply: Implanted device Implanted device details: Bone cement?Amira kyphoplasty Estimated Blood Loss: 5 cc Specimen collected: Yes Description of specimen(s) removed: L4 vertebral body biopsy Description of surgery: ATTENDING SURGEON: Waylon Fitch MD SEPTIC TECHNICIAN: none PREOPERATIVE DIAGNOSIS: L4 compression fracture POSTOPERATIVE DIAGNOSIS: Same PROCEDURE PERFORMED: L4 kyphoplasty CPT 99331 INDICATIONS FOR THE PROCEDURE: The patient is a 74-year-old lady, who presents with back pain after an injury. Imaging showed L4 acute compression fracture with osteopenia. After failing conservative management, the patient requested cement augmentation with kyphoplasty. Risk benefits were discussed in detail. The risks include but are not limited to infection, bleeding, hematoma formation, nerve or spinal cord injury, DVT, pulmonary embolism, cement Mollison, hypertension, cardiac arrest, persistent pain, need for further procedures, cement extravasation, future insufficiency fractures. After a discussion of the risks and benefits of the procedure, consent was signed for the procedure. DETAILS OF PROCEDURE: Patient was met in the preoperative holding area and the correct site was marked. The patient was brought back to the operative suite. Timeout was performed. Patient was carefully positioned flat Jalen table with pillows. MAC anesthesia sedation was performed. Back was prepped and draped in usual fashion. Timeout was again performed. C-arm AP and lateral view was then taken. 2 C-arms were positioned in a way that L4 was centralized and superior endplate was parallel to the beams. Spinous process was centered between the pedicles. Point of entry was marked with skin marker. local anesthetic was injected subcutaneously. Small stab incision was placed to allow Jamshidi needle. The Jamshidi needle was then taken down up to the lateral edge of the pedicle seen on AP view and confirmed the lateral view. Jamshidi needle was then malleted into the bone up to the medial wall of the pedicle seen on AP view and confirmed on lateral view to be inside the body. This was then advanced to the anterior third of the vertebral bodies. This was done on both sides. Stylette was removed. Core biopsy was performed. Drill was utilized up to balloon size. Balloon was inserted. The balloon was inflated with radiopaque dye and evaluated on AP lateral C-arm images. Once adequate expansion of the balloon was noticed, the balloons were emptied and removed. Cement was mixed. Once the cement consistency was putty like, this was slowly inserted into the vertebral body through both Jamshidi needles. AP lateral views were confirmed to make sure no cement extravasation occurs. Once adequate cement was placed, time was given to allow cement setting. Jamshidi needles were then removed. Steri-Strips were applied along with 4 x 4 and Tegaderm. AP lateral views showed good cement fill. Patient was then taken to PACU in stable condition and will be discharged from their home. I was present for the entire case. Surgical Findings: See operative note Complications Complications: No
--- NOTE | 2025-04-10 13:17 | POSTOP.ANE_ITS ---
Anesthesia: Postop Eval I
--- NOTE | 2025-04-10 13:17 | PCM.POST.ANE ---
Anesthesia: Postop Eval I Current Vital Signs Temperature: 98.2 F Pulse Rate: 94 Blood Pressure: 150/77 Respiratory Rate: 16 Pulse Ox: 95 Oxygen Delivery Method: Room Air Assessment Airway patent: Yes Spontaneous unlabored respirations: Yes Mental status: Awake and Calm nausea: No Vomiting: No Anesthesia Complication: No Fluid Hydration Crystalloid volume administer (ml): 400 Total IV fluid infused: 400 Progress Note Anesthesia document: Postop Eval 1 completed: Yes
[2025-04-10] MEDS: Polyethylene Glycol 3350 17 GM PACKET PO (14:55)
--- NOTE | 2025-04-10 15:39 | CASEMGMT ---
RN ALLEGRA into pt room, pt states she is feeling better pain woodson. Discussed that once therapy works with her, we will see their recommendations. Pt states her goal is to go home, but if she cannot, she would like to do therapy at [facility]. She is aware LOREN DINH will follow back up with her after therapy works with her. Pt denies further needs at this time.
--- NOTE | 2025-04-10 16:14 | POSTOPAN2_ITS ---
Anesthesia Postop Eval I Sum
--- NOTE | 2025-04-10 16:14 | PCM.POSTANE2 ---
Anesthesia Postop Eval I Sum Postop Eval Completion status Anesthesia document: Postop Eval 1 completed: Yes Anesthesia Postop Eval I Summary Anesthesia Postop Eval I Summary: Anesthesia Postop Eval I: Assessment Summary Airway patent Yes 04/10/25 13:17 [email or web address] Spontaneous unlabored Yes 04/10/25 13:17 [email or web address] [email or web address] respirations Mental status Awake,Calm 04/10/25 13:17 [email or web address] [email or web address] nausea No 04/10/25 13:17 [email or web address] [email or web address] Vomiting No 04/10/25 13:17 [email or web address] Anesthesia Postop Eval I: Fluid Summary Crystalloid volume administer 400 04/10/25 13:17 [email or web address] (ml) Colloids volume administered ( ml) Blood Product volume administered (ml) Total IV fluid infused 400 04/10/25 13:17 [email or web address] Anesthesia Postop Eval I: Summary Notes Anesthesia Complication No 04/10/25 13:17 [email or web address] Anesthesia Complication Comment: Post-operative progress note Anesthesia: Postop Eval II Evaluation Mental status: Awake and Calm Pain Level: 0 nausea: No Vomiting: No Complications Anesthesia Complication: No
--- NOTE | 2025-04-10 18:45 | PN.HOSP_ITS ---
Reason for Visit
--- NOTE | 2025-04-10 18:45 | PCM.PN.HOSP ---
Reason for Visit Chief Complaint: Low back pain, inability to perform ADLs at home Subjective Subjective Patient was seen and examined today, she underwent a kyphoplasty today at the L4 level. I talked with the patient this evening and she stated if she was to go anywhere for skilled services she would want to go to TCU, otherwise she would want to go home. I told her tomorrow we will put a request for pre-CERT to go to TCU, most likely she will need to stay over the weekend until Monday because her insurance would not be able to get back with us until that time. Objective Data Objective Data Vital Signs: Vital Signs Temp Pulse Resp BP Pulse Ox O2 Del Method 97.1 F L 87 18 159/100 H 95 Room Air 04/10/25 14:07 04/10/25 14:07 04/10/25 14:07 04/10/25 14:07 04/10/25 14:07 04/10/25 14:07 Oxygen Delivery Method Room Air Weight: 95.4 kg Body Mass Index (BMI) 37.2 Intake & Output: Intake and Output for Last 24 Hours 04/08/25 04/09/25 04/10/25 23:59 23:59 23:59 Intake Total 500 / 500 570 / 570 565.75 / 565.75 Output Total 700 / 700 Balance 500 / 500 -130 / -130 555.75 / 555.75 Lab / Micro Data 04/08/25 06:21 04/08/25 06:21 Labs: Laboratory Results - last 24 hr 04/09/25 22:29: D-Dimer Quant (PE/DVT) 0.93 H* Radiography Diagnostic Testing: Radiology Impression Chest CTA 04/09/25 23:16 IMPRESSION: No demonstrated pulmonary embolism or arterial dissection. Large sliding hiatal hernia. Most of the distended food residue containing stomach is noted in the posterior mediastinum. Surrounding mild amount of free fluid is noted. No definite CT evidence of incarceration. Fluid-filled dilated esophagus, probably reflux. Moderate coronary artery calcifications. Well-defined 8 mm calcified granuloma in the right lower lobe. Right adrenal nodule measuring 2.5 cm, probably benign adenoma. Well-defined hypodense nodule of the right thyroid lobe measuring 7 mm. Scattered calcified hepatic and splenic granulomas. Ununited fracture at the tip of the right coracoid process. Please correlate with focal tenderness at this level to determine the chronicity of this finding. Reading Location: [place] [id number] Lumbar Spine X-Ray 04/10/25 12:00 IMPRESSION: Intraoperative fluoroscopic services provided for kyphoplasty of the L4 vertebrae. Reading Location: [facility] Physical Exam Narrative Patient was not ambulated during her physical exam Const alert, oriented x3, no apparent distress and healthy appearing General Appearance: cooperative, well kempt and well developed Orientation / Consciousness: awake, oriented to person, oriented to place and oriented to time HEENT normocephalic and moist oral mucous membranes Eyes PERRL, EOMs intact bilaterally and conjunctivae normal Neck supple, no JVD and thyroid normal General: trachea midline Resp normal respiratory effort, no retractions, no use of accessory muscles and clear to auscultation bilaterally Auscultation: Negative for rales, rhonchi or wheezes Cardio regular rate, regular rhythm, S1 normal heart sound, S2 normal heart sound, no murmurs, no rub and no gallops GI normal to inspection, nondistended, normoactive bowel sounds, soft to palpation, non-tender and non-distended Extremity no clubbing, cyanosis or edema Skin no rashes or lesions noted General Skin Exam: no breakdown Neuro oriented x3, CN's II-XII intact bilaterally, no focal motor deficits and no sensory deficits noted Sensorium / Orientation: awake and alert Speech: speech normal Psych affect normal Assessment & Plan Assessment/Plan (1) Compression fracture of L4 vertebra: QUALIFIERS: Encounter type: initial encounter Qualified Code(s): S32.040A - Wedge compression fracture of fourth lumbar vertebra, initial encounter for closed fracture (2) Closed compression fracture of lumbar vertebra: PLAN: Plan 1. Uncontrolled pain secondary to acute compression fractures of the lumbar spine at L4-patient underwent a kyphoplasty today, she will be seen by PT and OT tomorrow, we will need pre-CERT from her insurance carrier for her to go to TCU. #2 essential hypertension-patient will remain on her present medication #3 acute debility secondary to #1-again patient will be seen by PT and OT, as possible she will need to go to a assisted facility for short-term rehab services #4 hyperlipidemia-patient is on simvastatin #5 chronic depression-patient is on citalopram #6 old compression fracture of L2 secondary to osteoporosis-I will place the patient on vitamin D/calcium Total clinical time spent by myself addressing the patient's medical issues, reviewing all of her data, and collaborating with patient's care team: 35 minutes Charges/Coding Visit Charges Inpatient E&M: 44447 Subs Hosp L2
[2025-04-10] MEDS: Heparin Injection (Vial) 5,000 UNIT/ML VIAL 5000 UNIT SC (22:29)
[2025-04-11] VITALS (9 sets, daily range): BP systolic 155–201; BP diastolic 74–111; PULSE 82–98; RESP 16–18; TEMP 36.6–37; O2SAT 93–98
[2025-04-11] MEDS: 0.9% Saline Lock 10 ML Syringe IV ×2 (04:56→15:05)
[2025-04-11] MEDS: Calcium Carb/Vitamin D 1 TABLET Tablet PO ×2 (09:40→17:00)
[2025-04-11] MEDS: Tolterodine Tartrate 4 MG CAP.SA PO (09:41)
[2025-04-11] MEDS: Heparin Injection (Vial) 5,000 UNIT/ML VIAL 5000 UNIT SC ×2 (09:41→22:11)
--- NOTE | 2025-04-11 10:15 | CASEMGMT ---
Addendum entered by Geno Lopez 04/11/25 10:50: Pt medically ready per hospitalist. Pt is accepted at TCU but request a CBC and BMP per insurance. Hospitalist agreeable to order. Precert to be started. Pt is aware that she is accepted and we will await insurance approval. Original Note: LOREN CM into pt room, pt sitting up in chair. She states therapy didn't go too bad but she would still like to go to [facility]. She denies need for a list of other options. Referral made to [facility].
[2025-04-11 11:12] LABS: Hematocrit 36.4 % (37-47); Hemoglobin 10.7 g/dL (12.0-15.0); Immature Granulocytes Count 0.060 X10^3/uL (0.0-0.0); Mean Corp Hgb Conc 29.4 g/dL (32-36); Mean Corpuscular Volume 69.6 fL (81-99); Mean Platelet Vol. 10.0 fl (6.2-12.0); NRBC Flagged by Analyzer 0 % (0-5); Platelet Count 338 K/mm3 (150-450); RBC Distribution Width CV 17.2 % (11.6-14.6); RBC Distribution Width SD 42.3 fl (35.1-43.9); Red Blood Count 5.23 M/mm3 (4.2-5.4); White Blood Count 10.1 K/mm3 (4.4-11.0)
[2025-04-11 11:49] LABS: Anion Gap 10 (5-15); BUN 16 mg/dL (4-19); BUN/Creat Ratio 23.4 RATIO (10-20); Calcium,Total 8.7 mg/dL (7.6-11.0); Carbon Dioxide 28.1 mmol/L (21.0-32.0); Chloride 98 mmol/L (98-108); Estimated Creatinine Clearance 67.79 ml/min (50-250); Glucose 153 mg/dL (70-99); Potassium 3.4 mmol/L (3.3-5.1)
[2025-04-11] MEDS: Polyethylene Glycol 3350 17 GM PACKET PO (15:03)
--- NOTE | 2025-04-11 18:30 | PN.HOSP_ITS ---
Reason for Visit
--- NOTE | 2025-04-11 18:30 | PCM.PN.HOSP ---
Reason for Visit Chief Complaint: Low back pain, inability to perform ADLs at home Subjective Subjective Patient was seen and examined today, we put in a request for the patient to go to TCU for skilled services. I told the patient we probably will not hear from her insurance company until Monday. Patient's back pain has improved since she had a kyphoplasty. Objective Data Objective Data Vital Signs: Vital Signs Temp Pulse Resp BP Pulse Ox O2 Del Method 98.2 F 92 16 173/93 H 98 Room Air 04/11/25 14:56 04/11/25 15:04 04/11/25 14:56 04/11/25 14:56 04/11/25 14:56 04/11/25 15:37 Oxygen Delivery Method Room Air Weight: 95.4 kg Body Mass Index (BMI) 37.2 Intake & Output: Intake and Output for Last 24 Hours 04/09/25 04/10/25 04/11/25 23:59 23:59 23:59 Intake Total 570 / 570 565.75 / 685.75 1900 / 1900 Output Total 700 / 700 10 / 160 150 / 150 Balance -130 / -130 555.75 / 525.75 1750 / 1750 Lab / Micro Data 04/11/25 11:03 04/11/25 11:03 Labs: Laboratory Results - last 24 hr 04/11/25 11:03: WBC 10.1, RBC 5.23, Hgb 10.7 L, Hct 36.4 L, MCV 69.6 L, MCH 20.5 L, MCHC 29.4 L, RDW Std Deviation 42.3, RDW Coeff of [place]af[place] 17.2 H, Plt Count 338, MPV 10.0, Immature Gran % (Auto) 0.600, Neut % (Auto) 84.9 H, Lymph % (Auto) 6.5 L, [place] % (Auto) 6.8, Eos % (Auto) 0.5, Baso % (Auto) 0.7, Absolute Neuts (auto) 8.6 H, Absolute Lymphs (auto) 0.66 L, Nucleated RBC % 0, Sodium 136, Potassium 3.4, Chloride 98, Carbon Dioxide 28.1, Anion Gap 10, BUN 16, Creatinine 0.70, Estim Creat Clear Calc 67.79, Est GFR (MDRD) Non-Af 90, BUN/Creatinine Ratio 23.4 H, Glucose 153 H, Calcium 8.7 Physical Exam Narrative Patient was not ambulated during her physical exam Const alert, oriented x3, no apparent distress and healthy appearing General Appearance: cooperative, well kempt and well developed Orientation / Consciousness: awake, oriented to person, oriented to place and oriented to time HEENT normocephalic and moist oral mucous membranes Eyes PERRL, EOMs intact bilaterally and conjunctivae normal Neck supple, no JVD and thyroid normal General: trachea midline Resp normal respiratory effort, no retractions, no use of accessory muscles and clear to auscultation bilaterally Auscultation: Negative for rales, rhonchi or wheezes Cardio regular rate, regular rhythm, S1 normal heart sound, S2 normal heart sound, no murmurs, no rub and no gallops GI normal to inspection, nondistended, normoactive bowel sounds, soft to palpation, non-tender and non-distended Extremity no clubbing, cyanosis or edema Skin no rashes or lesions noted General Skin Exam: no breakdown Neuro oriented x3, CN's II-XII intact bilaterally, no focal motor deficits and no sensory deficits noted Sensorium / Orientation: awake and alert Speech: speech normal Psych affect normal Assessment & Plan Assessment/Plan (1) Compression fracture of L4 vertebra: QUALIFIERS: Encounter type: initial encounter Qualified Code(s): S32.040A - Wedge compression fracture of fourth lumbar vertebra, initial encounter for closed fracture (2) Closed compression fracture of lumbar vertebra: PLAN: Plan 1. Uncontrolled pain secondary to acute compression fractures of the lumbar spine at L4-patient underwent a kyphoplasty on 04/10/2025, she will be seen by PT and OT, we will need pre-CERT from her insurance carrier for her to go to TCU. #2 essential hypertension-patient will remain on her present medication #3 acute debility secondary to #1-again patient will be seen by PT and OT, as possible she will need to go to a senior care facility for short-term rehab services #4 hyperlipidemia-patient is on simvastatin #5 chronic depression-patient is on citalopram #6 old compression fracture of L2 secondary to osteoporosis-I will place the patient on vitamin D/calcium Total clinical time spent by myself addressing the patient's medical issues, reviewing all of her data, and collaborating with patient's care team: 35 minutes Charges/Coding Visit Charges Inpatient E&M: 76738 Subs Hosp L2
[2025-04-12] VITALS (9 sets, daily range): BP systolic 144–188; BP diastolic 76–92; PULSE 98–107; RESP 15–18; TEMP 36.3–36.8; O2SAT 94–98
[2025-04-12] MEDS: 0.9% Saline Lock 10 ML Syringe IV (03:26)
[2025-04-12] MEDS: Heparin Injection (Vial) 5,000 UNIT/ML VIAL 5000 UNIT SC ×2 (08:21→22:14)
[2025-04-12] MEDS: Calcium Carb/Vitamin D 1 TABLET Tablet PO ×2 (08:22→17:16)
[2025-04-12] MEDS: Tolterodine Tartrate 4 MG CAP.SA PO (08:23)
--- NOTE | 2025-04-12 19:39 | PN.HOSP_ITS ---
Reason for Visit
--- NOTE | 2025-04-12 19:39 | PCM.PN.HOSP ---
Reason for Visit Chief Complaint: Low back pain, inability to perform ADLs at home Subjective Subjective Patient sitting up in bed, reports she is feeling down on herself but pain is improved from what it was, denies any chest pain or shortness of breath Objective Data Objective Data Vital Signs: Vital Signs Temp Pulse Resp BP Pulse Ox O2 Del Method 98.1 F 100 18 146/92 H 98 Room Air 04/12/25 14:48 04/12/25 14:48 04/12/25 14:48 04/12/25 14:48 04/12/25 14:48 04/12/25 14:48 Oxygen Delivery Method Room Air Weight: 95.4 kg Body Mass Index (BMI) 37.2 Intake & Output: Intake and Output for Last 24 Hours 04/10/25 04/11/25 04/12/25 23:59 23:59 23:59 Intake Total 565.75 / 685.75 1900 / 2200 1300 / 1300 Output Total 10 / 160 150 / 700 550 / 550 Balance 555.75 / 525.75 1750 / 1500 750 / 750 Lab / Micro Data 04/11/25 11:03 04/11/25 11:03 Physical Exam Narrative General: Alert, oriented, no apparent distress HEENT: Atraumatic, normocephalic Eyes: Anicteric, normal conjunctiva, extraocular movements grossly intact Neck: Supple Respiratory: Clear to auscultation bilaterally, normal respiratory effort Cardiovascular: Regular rate GI: Soft, nontender, nondistended Extremities: No edema Musculoskeletal: Moving all extremities Neuro: No overt focal neurological deficits Skin: No rashes appreciated Psych: Cooperative Assessment & Plan Assessment/Plan (1) Compression fracture of L4 vertebra: QUALIFIERS: Encounter type: initial encounter Qualified Code(s): S32.040A - Wedge compression fracture of fourth lumbar vertebra, initial encounter for closed fracture (2) Closed compression fracture of lumbar vertebra: PLAN: Plan #Uncontrolled pain secondary to acute compression fractures of the lumbar spine at L4 -underwent a kyphoplasty on 04/10/2025 - PT/OT -Case management -Supportive care -Plan for placement #Hypertension - Patient has had significantly elevated blood pressures, lisinopril increased and amlodipine added, continue hydralazine as needed in the short-term, likely in part due to pain, completely asymptomatic at this time # Hyperlipidemia -Continue statin #Depression/anxiety -Continue home medications #GERD -Continue PPI #DVT ppx: Heparin subcu Rosio Agarwal MD Charges/Coding Visit Charges Inpatient E&M: 88887 Subs Hosp L2
[2025-04-13] VITALS (10 sets, daily range): BP systolic 141–187; BP diastolic 66–108; PULSE 96–105; RESP 16–18; TEMP 36.2–36.8; O2SAT 96–98
[2025-04-13] MEDS: 0.9% Saline Lock 10 ML Syringe IV (03:56)
[2025-04-13] MEDS: Heparin Injection (Vial) 5,000 UNIT/ML VIAL 5000 UNIT SC ×2 (08:15→21:11)
[2025-04-13] MEDS: Calcium Carb/Vitamin D 1 TABLET Tablet PO ×2 (08:15→15:59)
[2025-04-13] MEDS: Tolterodine Tartrate 4 MG CAP.SA PO (08:15)
--- NOTE | 2025-04-13 12:22 | PN.HOSP_ITS ---
Reason for Visit
--- NOTE | 2025-04-13 12:22 | PCM.PN.HOSP ---
Reason for Visit Chief Complaint: Low back pain, inability to perform ADLs at home Subjective Subjective Resting comfortably in bed, no chest pain, headache, shortness of breath, doing fairly well overall with no new or acute complaints Objective Data Objective Data Vital Signs: Vital Signs Temp Pulse Resp BP Pulse Ox O2 Del Method 98.1 F 105 H 18 141/66 H 98 Room Air 04/13/25 08:05 04/13/25 10:05 04/13/25 08:05 04/13/25 10:05 04/13/25 10:05 04/13/25 10:05 Oxygen Delivery Method Room Air Weight: 95.4 kg Body Mass Index (BMI) 37.2 Intake & Output: Intake and Output for Last 24 Hours 04/11/25 04/12/25 04/13/25 23:59 23:59 22:59 Intake Total 1900 / 2200 1300 / 1500 700 / 700 Output Total 150 / 700 550 / 650 1300 / 1300 Balance 1750 / 1500 750 / 850 -600 / -600 Lab / Micro Data 04/11/25 11:03 04/11/25 11:03 Physical Exam Narrative General: Alert, oriented, no apparent distress HEENT: Atraumatic, normocephalic Eyes: extraocular movements grossly intact Neck: Supple Respiratory: normal respiratory effort Cardiovascular: no edema appreciated GI: nondistended Extremities: Moving all extremities Neuro: No overt focal neurological deficits Psych: Cooperative Assessment & Plan Assessment/Plan (1) Compression fracture of L4 vertebra: QUALIFIERS: Encounter type: initial encounter Qualified Code(s): S32.040A - Wedge compression fracture of fourth lumbar vertebra, initial encounter for closed fracture (2) Closed compression fracture of lumbar vertebra: PLAN: Plan #Uncontrolled pain secondary to acute compression fractures of the lumbar spine at L4 -underwent a kyphoplasty on 04/10/2025 - PT/OT -Case management -Supportive care -Plan for placement -04/13: Appears more comfortable today, awaiting pre-CERT, patient medically stable #Hypertension - Patient has had significantly elevated blood pressures, lisinopril increased and amlodipine added, continue hydralazine as needed in the short-term, likely in part due to pain, completely asymptomatic at this time -04/13: BP this a.m. 141/66, much improved, remains asymptomatic, continue present management Chronic medical problems and/or problems not being actively addressed during today's encounter: # Hyperlipidemia -Continue statin #Depression/anxiety -Continue home medications #GERD -Continue PPI #DVT ppx: Heparin subcu Rosio Agarwal MD Charges/Coding Visit Charges Inpatient E&M: 12220 Subs Hosp L1
[2025-04-14 03:23] VITALS: BP 149/97; PULSE 96; RESP 16; TEMP 36.8; O2SAT 97
--- NOTE | 2025-04-14 08:50 | EKG12_ITS ---
Test Reason : HIGH HR
[2025-04-14 08:51] VITALS: BP 188/116; PULSE 137; RESP 17; TEMP 37.3; O2SAT 94
[2025-04-14] MEDS: Heparin Injection (Vial) 5,000 UNIT/ML VIAL 5000 UNIT SC (09:02)
[2025-04-14] MEDS: Calcium Carb/Vitamin D 1 TABLET Tablet PO (09:03)
[2025-04-14] MEDS: Tolterodine Tartrate 4 MG CAP.SA PO (09:04)
[2025-04-14 09:06] VITALS: BP 159/100; PULSE 143; O2SAT 96
[2025-04-14 09:12] VITALS: PULSE 90; O2SAT 93
--- NOTE | 2025-04-14 09:12 | NURSING ---
on step down monitor as nursing measure, no available tele boxes
[2025-04-14 11:08] VITALS: PULSE 87; O2SAT 94
--- NOTE | 2025-04-14 11:16 | CASEMGMT ---
Addendum entered by Geno Lopez 04/14/25 15:29: LOREN DINH into pt room, she is aware that she will be going to [facility] shortly as we are awaiting the med list. Placed copy of dc instructions in chart. SW to finish dc when med list received. Original Note: Precert received for pt to dc to [facility]. Per hospitalist, pt is medically ready to dc this date. LOREN DINH into pt room, pt is aware that she will be trf'd over to TCU today. Pt denies the need for any family or friends to be contacted but states once a time is known, she would like to be made aware.
--- NOTE | 2025-04-14 15:05 | PCM.TXEXTCAR ---
Diet Diet Order/Speech Therapy: INPATIENT Hospital Diet / Speech Therapy Order(s) 04/10/25 14:17 Diet: Regular - General Routine Orders/Code Status Suppository Type: Dulcolax 10mg Suppository Frequency: Daily PRN Code Status: Full Code DC O2, CPAP, BIPAP needs Home O2 Discharge instructions: No Wound(s) L buttocks, cluster: Wound Type: Abrasion R buttock/thigh: Wound Type: scratch R superior buttock: Wound Type: Surgical Incision lower back: Wound Type: Surgical Incision Left elbow: Wound Type: Skin Tear Therapies Physical Therapy: Eval and Treat Occupational Therapy: Eval and Treat Problem/Diagnosis (1) Compression fracture of L4 vertebra: Status: Acute Code(s): S32.040A - Wedge compression fracture of fourth lumbar vertebra, initial encounter for closed fracture (2) Closed compression fracture of lumbar vertebra: Status: Acute Code(s): S32.000A - Wedge compression fracture of unspecified lumbar vertebra, initial encounter for closed fracture Plan #Uncontrolled pain secondary to acute compression fractures of the lumbar spine at L4- s/p kyphoplasty #Hypertension # Hyperlipidemia #Depression/anxiety #GERD 74-year-old female history of with history of anxiety, hypertension, GERD presented [facility] ED 04/08/2025 with complaints of low back pain after a fall. She had an x-ray 04/02/2025 after the initial fall with no injury noted, 04/04/2025 she Re-presented with complaint of lower back pain so she had a pelvic CT which showed L4 compression fracture with 10% loss of height. Ultimately came back in and repeat CT with lumbar spine showed 50% compression of L2 and 40% deformity at L4. She was admitted for pain control and orthospine consult. Ultimately patient required L4 kyphoplasty for L4 acute compression fracture. Patient tolerated this well. Postoperative course was complicated by hypertension and her blood pressure medications were adjusted, still remained elevated however slowly downtrending, will ultimately need further titration in the future however hesitant to drop too quickly. Patient asymptomatic. On day of discharge no new acute complaints. Did have an episode of sinus tachycardia in the morning of 140 that was self-limited with stable vitals and no chest pain or shortness of breath, may have been due to pain and/or anxiety. No noted fib on EKG. Patient transferred to TCU for rehab in stable condition. Allergies/Procedures Done in Hospital Allergies Sulfa (Sulfonamide Antibiotics) Allergy (Mild, Verified 04/08/25 05:46) PT UNSURE OF REACTION Procedures: - (L4 kyphoplasty 04/10/[address] Mead) Type of Care/Length of Stay Estimated LOS: Convalescent Care Less Than 30 days Type of Care Needed: Skilled Rehab Potential: Good Prognosis: Good Additional Orders/Day of Discharge Day of Discharge: 04/14/25 Discharge Plan Admission Admit Date/Time: 04/08/25 08:44 Primary Reason for Your Visit: Low back pain, L4 fracture Attending Provider: Rosio Agarwal Primary Care Provider: Jad Pederson Consulting Providers: Waylon Fitch; Mohamud Hallman Instructions Patient Instructions: ED Fall Prevention Additional Instructions / Restrictions: DISCHARGE INSTRUCTIONS PLEASE READ *Please take this with you to your next doctors appointment* - Your blood pressure medication, lisinopril, has been increased to 40 mg amlodipine has been added. You will likely need additional adjustment in future -Please call your primary care provider's office upon discharge to schedule a hospital follow up within 1 week. -For any concerning signs or symptoms please call 911 or proceed to the nearest emergency department Discharge Orders/Prescriptions Prescriptions: New amlodipine 5 mg Tablet 5 mg PO DAILY Qty: 0 0RF calcium carbonate-vitamin D3 [Oyster Shell Calcium-Vit D3] 500 mg-5 mcg (200 unit) Tablet 1 tab PO BIDCM Qty: 0 0RF acetaminophen 325 mg Tablet 650 mg PO Q6H PRN PRN (Reason: Pain 1-10 Or Fever >100.7) Qty: 0 0RF atorvastatin 20 mg Tablet 20 mg PO QHS Qty: 0 0RF Continued citalopram 40 MG tablet 40 mg PO DAILY omeprazole 20 MG capsule 20 mg PO DAILY oxybutynin chloride 15 mg tablet extended release 24hr 15 mg PO DAILY aspirin 81 mg tablet 81 mg PO DAILY Changed lisinopril 20 MG tablet 40 mg PO DAILY 30 Days Qty: 60 0RF Discontinued simvastatin 40 MG tablet 40 mg PO QHS hydrocodone-acetaminophen 5-325 mg tablet 1 tab PO Q6H PRN PRN (Reason: Pain) 3 Days Qty: 10 0RF Referrals / Follow Up: Jad Pederson MD [Primary Care Provider, Family Practice] Disposition Disposition (needs filled in before D/C Order can be placed): [facility] ([facility]) Compression fracture of L4 vertebra Qualifiers: Encounter type: initial encounter Qualified Code(s): S32.040A - Wedge compression fracture of fourth lumbar vertebra, initial encounter for closed fracture
[2025-04-14 15:09] VITALS: BP 167/84; PULSE 110; RESP 16; TEMP 36.7; O2SAT 94
--- NOTE | 2025-04-14 15:13 | PCM.DC.SUM ---
Providers Date of Admission: 04/08/25 Date of Discharge: 04/14/25 Primary Care Physician: Dr. Jad Pederson MD Consultations 04/08/25 09:54 Consult: Orthopedics Routine Consulting Provider: Waylon Fitch Reason for Consult: compression fracture EMERGENT Consult: No MD Notified: Yes Date Notified: 04/08/25 Time Notified: 09:09 Method of Notification: Verbal Reason For Visit: COMPRESSION FRACTURE LUMBAR SPINE Diagnosis Discharge Diagnosis (1) Compression fracture of L4 vertebra: Status: Acute Code(s): S32.040A - Wedge compression fracture of fourth lumbar vertebra, initial encounter for closed fracture Qualifiers: Encounter type: initial encounter Qualified Code(s): S32.040A - Wedge compression fracture of fourth lumbar vertebra, initial encounter for closed fracture (2) Closed compression fracture of lumbar vertebra: Status: Acute Code(s): S32.000A - Wedge compression fracture of unspecified lumbar vertebra, initial encounter for closed fracture Plan #Uncontrolled pain secondary to acute compression fractures of the lumbar spine at L4- s/p kyphoplasty #Hypertension # Hyperlipidemia #Depression/anxiety #GERD Medications at Discharge Home Medications citalopram 40 mg tablet 40 mg PO DAILY depression 07/06/18 omeprazole 20 mg capsule,delayed release 20 mg PO DAILY GERD 07/06/18 oxybutynin chloride 15 mg tablet,extended release 24 hr 15 mg PO DAILY bladder 04/02/25 aspirin 81 mg tablet 81 mg PO DAILY heart 04/08/25 acetaminophen 325 mg tablet 650 mg (2 x 325 mg) PO Q6H PRN PRN Pain 1-10 Or Fever >100.7 #0 tabs 04/14/25 amlodipine 5 mg tablet 5 mg PO DAILY Heart #0 tabs 04/14/25 atorvastatin 20 mg tablet 20 mg PO QHS cholesterol #0 tabs 04/14/25 calcium 500 mg (as carbonate)-vitamin D3 5 mcg (200 unit) tablet (Oyster Shell Calcium-Vitamin D3) 1 tab PO BIDCM supplement #0 tabs 04/14/25 lisinopril 20 mg tablet 40 mg (2 x 20 mg) PO DAILY hypertension 30 days #60 tabs 04/14/25 Hospital Course Summary of Care Provided Minutes Spent on Discharge: 23 Hospital Course: 74-year-old female history of with history of anxiety, hypertension, GERD presented [facility] ED 04/08/2025 with complaints of low back pain after a fall. She had an x-ray 04/02/2025 after the initial fall with no injury noted, 04/04/2025 she Re-presented with complaint of lower back pain so she had a pelvic CT which showed L4 compression fracture with 10% loss of height. Ultimately came back in and repeat CT with lumbar spine showed 50% compression of L2 and 40% deformity at L4. She was admitted for pain control and orthospine consult. Ultimately patient required L4 kyphoplasty for L4 acute compression fracture. Patient tolerated this well. Postoperative course was complicated by hypertension and her blood pressure medications were adjusted, still remained elevated however slowly downtrending, will ultimately need further titration in the future however hesitant to drop too quickly. Patient asymptomatic. On day of discharge no new acute complaints. Did have an episode of sinus tachycardia in the morning of 140 that was self-limited with stable vitals and no chest pain or shortness of breath, may have been due to pain and/or anxiety. No noted fib on EKG. Patient transferred to TCU for rehab in stable condition. Physical Exam Narrative General: Alert, oriented, no apparent distress HEENT: Atraumatic, normocephalic Eyes: extraocular movements grossly intact Neck: Supple Respiratory: normal respiratory effort Cardiovascular: no edema appreciated GI: nondistended Extremities: Moving all extremities Neuro: No overt focal neurological deficits Psych: Cooperative Weight / BMI Weight Weight: 95.4 kg Body Mass Index (BMI) 37.2 ABG / Lab / Microbiology Data 04/11/25 11:03 04/11/25 11:03 D/C Instructions DC O2, CPAP, BIPAP Needs Home O2 Discharge instructions: No Meaningful Use Info Meaningful Use Meaningful Use Diagnoses (Choose all that apply): None applicable Discharge Plan Admission Admit Date/Time: 04/08/25 08:44 Primary Reason for Your Visit: Low back pain, L4 fracture Attending Provider: Rosio Agarwal Primary Care Provider: Jad Pederson Consulting Providers: Waylon Fitch; Mohamud Hallman Instructions Patient Instructions: ED Fall Prevention Additional Instructions / Restrictions: DISCHARGE INSTRUCTIONS PLEASE READ *Please take this with you to your next doctors appointment* - Your blood pressure medication, lisinopril, has been increased to 40 mg amlodipine has been added. You will likely need additional adjustment in future -Please call your primary care provider's office upon discharge to schedule a hospital follow up within 1 week. -For any concerning signs or symptoms please call 911 or proceed to the nearest emergency department Discharge Orders/Prescriptions Prescriptions: New amlodipine 5 mg Tablet 5 mg PO DAILY Qty: 0 0RF calcium carbonate-vitamin D3 [Oyster Shell Calcium-Vit D3] 500 mg-5 mcg (200 unit) Tablet 1 tab PO BIDCM Qty: 0 0RF acetaminophen 325 mg Tablet 650 mg PO Q6H PRN PRN (Reason: Pain 1-10 Or Fever >100.7) Qty: 0 0RF atorvastatin 20 mg Tablet 20 mg PO QHS Qty: 0 0RF Continued citalopram 40 MG tablet 40 mg PO DAILY omeprazole 20 MG capsule 20 mg PO DAILY oxybutynin chloride 15 mg tablet extended release 24hr 15 mg PO DAILY aspirin 81 mg tablet 81 mg PO DAILY Changed lisinopril 20 MG tablet 40 mg PO DAILY 30 Days Qty: 60 0RF Discontinued simvastatin 40 MG tablet 40 mg PO QHS hydrocodone-acetaminophen 5-325 mg tablet 1 tab PO Q6H PRN PRN (Reason: Pain) 3 Days Qty: 10 0RF Referrals / Follow Up: Jad Pederson MD [Primary Care Provider, Family Practice] Disposition Disposition (needs filled in before D/C Order can be placed): [facility] Charges/Coding Visit Charges Inpatient E&M: 47811 Disch Hosp
--- NOTE | 2025-04-14 16:40 | PHA.DC_ITS ---
Pharmacy [place] Med Reconciliation
--- NOTE | 2025-04-14 16:40 | PHA.DC.MR.R ---
Pharmacy [place] Med Reconciliation Pharmacy Service has performed discharge medication reconciliation for this patient. The patient's discharge medication list was reviewed for discrepancies and discrepancies were resolved. Medications at Discharge Home Medications citalopram 40 mg tablet 40 mg PO DAILY 07/06/18 omeprazole 20 mg capsule,delayed release 20 mg PO DAILY 07/06/18 oxybutynin chloride 15 mg tablet,extended release 24 hr 15 mg PO DAILY 04/02/25 aspirin 81 mg tablet 81 mg PO DAILY 04/08/25 acetaminophen 325 mg tablet 650 mg (2 x 325 mg) PO Q6H PRN PRN Pain 1-10 Or Fever >100.7 #0 tabs 04/14/25 amlodipine 5 mg tablet 5 mg PO DAILY #0 tabs 04/14/25 atorvastatin 20 mg tablet 20 mg PO QHS #0 tabs 04/14/25 calcium 500 mg (as carbonate)-vitamin D3 5 mcg (200 unit) tablet (Oyster Shell Calcium-Vitamin D3) 1 tab PO BIDCM #0 tabs 04/14/25 lisinopril 20 mg tablet 40 mg (2 x 20 mg) PO DAILY hypertension 30 days #60 tabs 04/14/25
--- NOTE | 2025-04-14 16:42 | CASEMGMT ---
Social Work- SW received med list; copied for chart, original to TCU. PHOEBE Holliday
== END 2025-04-14 16:44 | DRG 479 ==
LOC: ED 06:39 → MS3 09:14
PROVIDERS: Family Medicine; Orthopaedic Surgery Orthopaedic Surgery of the Spine; Admitting Provider Internal Medicine; Emergency Provider Emergency Medicine; PCP Family Medicine; Visit Provider Internal Medicine
PROC: 0QB03ZX Excision of Lumbar Vertebra, Percutaneous Approach, Diagnostic (ICD-10-PCS; principal; 2025-04-10 11:45)
DX: S32.040A Wedge compression fracture of fourth lumbar vertebra, initial encounter for closed fracture (principal); E78.5 Hyperlipidemia, unspecified; F32.A Depression, unspecified; I10 Essential (primary) hypertension; M48.061 Spinal stenosis, lumbar region without neurogenic claudication; K21.9 Gastro-esophageal reflux disease without esophagitis; F41.9 Anxiety disorder, unspecified; W19.XXXA Unspecified fall, initial encounter; Z79.82 Long term (current) use of aspirin; Z79.899 Other long term (current) drug therapy
CPT/HCPCS: 36415; 71275; 72100; 72131; 72148; 76000; 80048; 81001; 85025; 85379; 88305; 88307; 88311; 93005; 97116; 97162; 97166; 97530; 97535; 99285; C1713; Q9967; A4216; J2405

== ENCOUNTER 2025-04-14 16:45 | Inpatient (IN) | payer MEDICARE, SELFPAY ==
[2025-04-14 16:49] VITALS: BP 167/90; PULSE 106; RESP 18; TEMP 36.8; O2SAT 95; BMI 36.8
--- NOTE | 2025-04-14 19:50 | HP.PCM_ITS ---
HPI - General General Date of Admission: 04/14/25 Date of Service: 04/14/25 Chief Complaint: Here for rehabilitation. HPI Narrative ANITA LOYD, is a 74 F who presents with followin04/02/2025 Fall, back pain. 04/04/2025 L4 compression fracture, given [place], helped a little, but difficult to walk. Sitting in recliner for 2 days, unable to get up 2/2 pain. EMS called. 04/08/2025 [facility] ED back pain. CT confirmed L2, L4 compression fracture. Unable to go home. 04/08/2025 Admit [facility]. IV/PO pain control, PT/OT, MRI LS spine, Ortho spine consultation, for L2, L4 compression fracture. PT/OT/CM for debility. 04/09/2025 Ortho spine recommended kyphoplasty, patient would to proceed. Plan L4 kyphoplasty. PT/OT Debility. 04/10/2025 Dr. Fitch performed L4 kyphoplasty. PT/OT SNF. [facility]. 04/12/2025 Feeling down, but pain improved. PT/OT/CM for discharge planning. 04/13/2025 No acute events overnight. [facility]. 04/14/2025 Admit to TCU with debility, here for rehabilitation, strengthening, prior to discharge home. [facility] Medical History (Updated 04/14/25 @ 19:[address] Bola Centeno MD) Anxiety Depression Urinary incontinence High cholesterol Hypertension Home Medications Medication Instructions Recorded Last Taken Type citalopram 40 mg tablet 40 mg PO DAILY depression 04/14/25 09:00 H istory omeprazole 20 mg capsule,delayed 20 mg PO DAILY GERD 0 07/06/18 04/14/25 09:00 History release oxybutynin chloride 15 mg 15 mg PO DAILY bladder 04/0204/14/25 09:00 History tablet,extended release 24 hr aspirin 81 mg tablet 81 mg PO DAILY heart 5 04/14/25 09:00 History acetaminophen 325 mg tablet 650 mg (2 x 325 mg) PO Q6H PRN PRN 04/14/25 04/13/25 15:55 Rx Pain 1-10 Or Fever >100.7 #0 tabs amlodipine 5 mg tablet 5 mg PO DAILY Heart #0 tabs 04/14/25 04/14/25 09:05 Rx atorvastatin 20 mg tablet 20 mg PO QHS cholesterol #0 tabs 04/14/25 04/13/25 21:10 Rx calcium 500 mg (as 1 tab PO BIDCM supplement #0 tabs 04/14/25 04/14/25 09:00 Rx carbonate)-vitamin D3 5 mcg (200 unit) tablet (Oyster Shell Calcium-Vitamin D3) lisinopril 20 mg tablet 40 mg (2 x 20 mg) PO DAILY 1 06/14/24 04/14/25 09:00 Rx hypertension 30 days #60 tabs Allergy/AdvReac Type Severity Reaction Status Date / Time Sulfa (Sulfonamide Allergy Mild PT UNSURE Verified 04/08/25 05:46 Antibiotics) OF REACTION Surgical History (Updated 04/14/25 @ 19:[address] Bola Centeno MD) History of kyphoplasty H/O: hysterectomy Social History (Updated 04/14/25 @ 19:[address] Bola Centeno MD) household members: friend(s) and other details: Lives with ex roommate's twin sister who is walker bound, unable to help. Smoking Status: Never smoker alcohol intake: never substance use type: does not use ROS Constitutional Constitutional: Reports weakness; Denies chills, fever(s) or weight gain ENT HEENT: Denies headache(s), nasal congestion or nasal discharge Cardiovascular Cardiovascular: Denies chest pain or palpitations Respiratory/Chest Respiratory/Chest: Denies cough, excessive phlegm production or shortness of breath with exertion Gastrointestinal Gastrointestinal: Denies abdominal pain, nausea or vomiting Genitourinary Genitourinary: Denies dysuria Musculoskeletal Musculoskeletal: Denies joint pain or joint swelling Integumentary Integumentary: Denies rash or wounds Neurologic Neurologic: Denies focal weakness, numbness or tingling Psychiatric Psychiatric: Denies anxiety, auditory hallucinations, depression, homicidal ideation or suicidal ideation Vital Signs Vital Signs Vital Signs: 04/14/25 16:49 Temperature 98.2 F Temperature Source Temporal Pulse Rate 106 H Respiratory Rate 18 Blood Pressure 167/90 H Blood Pressure Mean 115 Blood Pressure Source Monitor Blood Pressure Position Semi-Fowlers Blood Pressure Location Right Arm Pulse Ox 95 Oxygen Delivery Method Room Air Weight Weight: 94.347 kg Body Mass Index (BMI) 36.8 Physical Exam Const alert General Appearance: cooperative HEENT normocephalic Eyes PERRL and EOMs intact bilaterally Neck supple, no JVD and no carotid bruits Resp normal respiratory effort, normal air movement and clear to auscultation bilaterally Cardio regular rate and regular rhythm GI normal to inspection, nondistended, normoactive bowel sounds, non-tender and n on-distended Extremity normal capillary refill General Extremity: Negative for edema Skin no rashes or lesions noted General Skin Exam: no breakdown Psych affect normal Appearance: appropriate Assessment & Plan Assessment/Plan (1) Debility: (2) Compression fracture of L4 vertebra: QUALIFIERS: Encounter type: initial encounter Qualified Code(s): S32.040A - Wedge compression fracture of fourth lumbar vertebra, initial encounter for closed fracture (3) Compression fracture of L2: QUALIFIERS: Encounter type: sequela Qualified Code(s): S32.020S - Wedge compression fracture of second lumbar vertebra, sequela (4) Status post kyphoplasty: (5) HTN (hypertension): (6) Hyperlipidemia: (7) Depression: (8) GERD (gastroesophageal reflux disease): (9) Anxiety: (10) Overactive bladder: PLAN: Plan 74 year old female with below past medical history hospitalized for intractable low back pain 2/2 L4 compression fracture, underwent L4 kyphoplasty 04/10/[address] Fitch, admitted to TCU with debility, here for rehabilitation, strengthening, prior to discharge home with roommate. * Debility - PT/OT. * Pain - Tylenol 1000mg q6 prn pain (1-10). * Bowel - senna/colace 1 tablet bid, Magnesium citrate 300mL daily prn. * Adult immunization - Administer pneumonia vaccine, covid vaccine, flu vaccine as appropriate. * DVT prophylaxis - Lovenox 40mg sc daily. * Hypertension - Lisinopril 40mg daily, Amlodipine 5mg daily. * CV prophylaxis - Aspirin 81mg daily. * Hyperlipidemia - Atorvastatin 20mg qhs. * Calcium deficiency - Calciun D 1 tablet bid. * GERD - Pantoprazole 20mg daily. * Overactive bladder - Tolterodine 4mg daily. The following psychotropic medication was present on admission: Citalopram 40mg daily. Psychotropic medication therapy is indicated for a diagnosis of: Major De pression. Based on my clinical evaluation, continuation of the medication is necessary at this time. Gradual dose reduction plan (select one): ____ GDR will be attempted. Will monitor patient symptoms and behaviors in response to GDR. __x__ GRD contraindicated. Reason contraindicated: stable chronic chcf use.
[2025-04-14] MEDS: 0.9% Saline Lock 10 ML Syringe IV (21:43)
[2025-04-15 05:35] LABS: Hematocrit 35.4 % (37-47); Hemoglobin 10.5 g/dL (12.0-15.0); Immature Granulocytes Count 0.050 X10^3/uL (0.0-0.0); Mean Corp Hgb Conc 29.7 g/dL (32-36); Mean Corpuscular Volume 70.8 fL (81-99); Mean Platelet Vol. 9.8 fl (6.2-12.0); NRBC Flagged by Analyzer 0 % (0-5); Platelet Count 320 K/mm3 (150-450); RBC Distribution Width CV 18.1 % (11.6-14.6); RBC Distribution Width SD 45.1 fl (35.1-43.9); Red Blood Count 5.00 M/mm3 (4.2-5.4); White Blood Count 9.8 K/mm3 (4.4-11.0)
[2025-04-15 06:58] LABS: Anion Gap 13 (5-15); BUN 20 mg/dL (4-19); BUN/Creat Ratio 30.1 RATIO (10-20); Calcium,Total 9.6 mg/dL (7.6-11.0); Carbon Dioxide 27.3 mmol/L (21.0-32.0); Chloride 100 mmol/L (98-108); Estimated Creatinine Clearance 67.38 ml/min (50-250); Glucose 114 mg/dL (70-99); Potassium 3.1 mmol/L (3.3-5.1)
[2025-04-15] MEDS: Potassium Chloride Oral Tablet 20 MEQ 40 MEQ PO (08:15)
[2025-04-15] MEDS: Aspirin E.C. 81 MG Tablet PO (08:15)
[2025-04-15] MEDS: Calcium Carb/Vitamin D 1 TABLET Tablet PO ×2 (08:16→16:36)
[2025-04-15] MEDS: Tolterodine Tartrate 4 MG CAP.SA PO (08:16)
[2025-04-15 08:24] VITALS: BP 178/88; PULSE 110; RESP 17; TEMP 36.7; O2SAT 92
--- NOTE | 2025-04-15 08:33 | NURSING ---
Pt had Large amount of emesis with Therapy after taking morning medication. Pt felt it was from taking the potassium and drinking through a straw with dentures in. Unable to measure amount of emesis.
[2025-04-15] MEDS: Tuberculin,Purif.prot.deriv. 50 TU/ML Vial 0.1 ML ID (11:11)
--- NOTE | 2025-04-15 11:30 | PCM.PN.DRR ---
Documented by User: Eugene Toney 04/15/25 11:47 TCU RX Drug Regimen Review Subjective/Objective Subjective/Objective Subjective: TCU admission note. 74 year old female with below past medical history hospitalized for intractable low back pain 2/2 L4 compression fracture, underwent L4 kyphoplasty 04/10/[address] Fitch, admitted to TCU with debility, here for rehabilitation, strengthening, prior to discharge home with roommate. Objective: Allergies Sulfa (Sulfonamide Antibiotics) Allergy (Mild, Verified 04/08/25 05:46) PT UNSURE OF REACTION Current Medications Generic Name Dose Route Start Last Admin Trade Name Freq PRN Reason Stop Dose Admin Acetaminophen 1,000 mg 04/14/25 19:59 04/15/25 08:16 Acetaminophen 500 Mg Tablet PO 1,000 mg Q6H PRN PRN Administration Pain Score 1-10 Amlodipine Besylate 5 mg 04/15/25 10:00 04/15/25 08:16 Amlodipine 5 Mg Tablet PO 5 mg DAILY CHAD Administration Protocol Aspirin 81 mg 04/15/25 08:00 04/15/25 08:15 Aspirin E.C. 81 Mg Tablet PO 81 mg BREAKFAST CHAD Administration Atorvastatin Calcium 20 mg 04/14/25 22:00 04/14/25 21:43 Atorvastatin Calcium 20 Mg Tablet PO 20 mg QHS CHAD Administration Calcium/Vitamin D 1 tablet 04/15/25 08:00 04/15/25 08:16 Calcium Carb/Vitamin D 1 Tablet Tablet PO 1 tablet BIDCM CHAD Administration Citalopram Hydrobromide 40 mg 04/15/25 10:00 04/15/25 08:16 Citalopram 40 Mg Tablet PO 40 mg DAILY CHAD Administration Enoxaparin Sodium 40 mg 04/15/25 06:00 04/15/25 05:17 Enoxaparin 40 Mg/0.4 Ml Syringe SC 40 mg DAILY@0600 CHAD Administration Sodium Chloride 250 mls @ 15 mls/hr 04/14/25 17:06 IV .[id number] PRN Saline Flush Sodium Chloride 250 mls @ 15 mls/hr 04/14/25 17:06 IV .[id number] PRN Additional IVPB Infusion Lisinopril 40 mg 04/15/25 10:00 04/15/25 08:16 Lisinopril 40 Mg Tablet PO 40 mg DAILY CHAD Administration Protocol Magnesium Citrate 300 ml 04/14/25 19:58 Magnesium Citrate 300 Ml PO DAILY PRN CONSTIPATION Pantoprazole Sodium 20 mg 04/15/25 10:00 04/15/25 08:16 Pantoprazole Sodium 20 Mg Tablet PO 20 mg DAILY CHAD Administration Potassium Chloride 20 meq 04/16/25 08:00 Potassium Chloride Oral Tablet 20 Meq PO DAILYCM CHAD Senna/Docusate Sodium 1 tablet 04/14/25 22:00 04/15/25 08:20 Senna/Docusate Sodium 1 Tablet PO Not Given BID CHAD Sodium Chloride 10 - 40 ml 04/14/25 17:06 04/14/25 21:43 0.9% Saline Lock 10 Ml Syringe IV 10 ml UD PRN Administration SALINE FLUSH Tolterodine Tartrate 4 mg 04/15/25 10:00 04/15/25 08:16 Tolterodine Tartrate 4 Mg Cap.Sa PO 4 mg DAILY CHAD Administration Tuberculin PPD 0.1 ml 04/22/25 10:00 Tuberculin,Purif.Prot.Deriv. 50 Tu/Ml Vial ID 04/22/25 10:01 X1 ONE Problem List Overactive bladder (Acute) Anxiety (Acute) GERD (gastroesophageal reflux disease) (Acute) Depression (Acute) Status post kyphoplasty (Acute) Debility (Acute) Compression fracture of L2 (Acute) Compression fracture of L4 vertebra (Acute) Hyperlipidemia (Acute) HTN (hypertension) (Chronic) Vital Signs Temp Pulse Resp BP Pulse Ox O2 Del Method 98.1 F 110 H 17 178/88 H 92 Room Air 04/15/25 08:24 04/15/25 08:24 04/15/25 08:24 04/15/25 08:24 04/15/25 08:24 04/15/25 08:24 Oxygen Delivery Method Room Air Weight: 94.347 kg Body Mass Index (BMI) 36.8 Sodium 140 mmol/L (133-145) 04/15/25 05:06 Potassium 3.1 mmol/L (3.3-5.1) L 04/15/25 05:06 Chloride 100 mmol/L (98-108) 04/15/25 05:06 Carbon Dioxide 27.3 mmol/L (21.0-32.0) 04/15/25 05:06 Anion Gap 13 (5-15) 04/15/25 05:06 BUN 20 mg/dL (4-19) H 04/15/25 05:06 Creatinine 0.67 mg/dL (0.70-1.20) L 04/15/25 05:06 Est GFR (MDRD) Non-Af 92 (>60) 04/15/25 05:06 BUN/Creatinine Ratio 30.1 RATIO (10-20) H 04/15/25 05:06 Glucose 114 mg/dL (70-99) H 04/15/25 05:06 Assessment/Plan: 1. Pain: acetaminophen 1000 mg PO Q6H PRN pain (1-10). The patient has required x1 PRN dose of acetaminophen so far this admission. Please continue to monitor pain levels, PRN medication usage, and LFTs (no recent LFTs documented). 2. Bowel: senna/docusate 1 tablet PO BID, magnesium citrate 300 mL PO daily PRN constipation. The patient has not required any PRN doses of magnesium citrate so far this admission and the patient's last bowel movement was documented on 04/14/25. Please continue to monitor for PRN medication usage, bowel movements, constipation and diarrhea. 3. DVT prophylaxis: enoxaparin 40 mg SC daily. Please continue to monitor for s/s of DVTs such as pain/erythema/edema in an extremity, for bleeding/excessive bruising, hemoglobin levels (Hgb = 10.5 g/L on 04/15/25), platelet counts (Plt = 320 K/mm3 on 04/15/25), and renal function (serum creatinine = 0.67 mg/dL with creatinine clearance ~ 67 mL/min on 04/15/25). 4. Hypertension: lisinopril 40 mg PO daily, amlodipine 5 mg PO daily. Please continue to monitor blood pressures (recent range = 141-188/66-116 mmHg), for lower extremity edema, renal function (serum creatinine = 0.67 mg/dL with creatinine clearance ~ 67 mL/min on 04/15/25), potassium levels (K = 3.1 mmol/L on 04/15/25), sodium levels (Na = 140 mmol/L on 04/15/25), for cough and angioedema. The patient's blood pressures have been significantly elevated over the past several days, please consider increasing the patient's amlodipine to 10 mg PO daily. 5. CV prophylaxis: aspirin 81 mg PO daily with breakfast. Please continue to monitor for s/s of stroke/heart attack, for bleeding/excessive bruising, hemoglobin levels (Hgb = 10.5 g/L on 04/15/25), platelet counts (Plt = 320 K/mm3 on 04/15/25), and for GI distress with aspirin administration. 6. Hyperlipidemia: atorvastatin 20 mg PO QHS. Please continue to monitor lipid levels (no recent lipid levels documented), and LFTs (no recent LFTs documented). 7. GERD: pantoprazole 20 mg PO daily. Please continue to monitor for s/s of GERD, for diarrhea that could indicate clostridium difficile infection, and for s/s of bone resorption such as fractures. 8. Overactive bladder: tolterodine 4 mg PO daily. Please continue to monitor for bladder spasms, for dry mouth, dry eyes, headaches, and constipation. 9. Calcium deficiency: calcium carbonate/vitamin D 1 tablet PO BID with meals. Please continue to monitor calcium levels (Ca = 9.6 mg/dL on 04/15/25). 10. Hypokalemia: potassium chloride 20 mEq PO daily with meals. Please continue to monitor potassium levels (K = 3.1 mmol/L on 04/15/25), and for GI distress with potassium administration. Assessment/Plan for indications treated with psychotropic medications: 1. Depression: citalopram 40 mg PO daily. Please see provider notes regarding stable chronic long-term therapy GDR not recommended. Monitor for efficacy including resident symptoms, behaviors and indications of distress.Monitor for depression and SI. Monitor for tolerability including mental status, cognition, excessive sleepiness, withdrawal or decreased participation in activities and decline in physical functioning. Maximize use of nonpharmacologic/behavioral interventions to facilitate dose reduction or discontinuation as appropriate. Please evaluate the appropriateness of GDR unless contraindicated. If appropriate, GDR should be attempted in 2 separate quarters within the first year of use or admission to TCU. If GDR attempted, monitor resident symptoms/behaviors. Monitor for diarrhea, nausea, headache, anxiety or drowsiness, suicidal thoughts or behaviors (Boxed Warning), symptoms of bleeding, symptoms of serotonin syndrome (including agitation, confusion, hyperreflexia, rigidity/myoclonus, tremor, tachycardia, tachypnea), sodium levels (last Na = 140 mmol/L on 04/16/25). Medical chart and medication regimen reviewed. The following medication irregularities or issues were identified: 1. Hypertension: lisinopril 40 mg PO daily, amlodipine 5 mg PO daily. The patient's blood pressures have been significantly elevated over the past several days, please consider increasing the patient's amlodipine to 10 mg PO daily. Date Date of Note: 04/15/25 Documented by User: Dr. Bola Centeno MD 04/15/25 11:52 TCU RX Drug Regimen Review Provider Comments Provider responsibility Provider Comments to Recommendations by Pharmacy Agree
--- NOTE | 2025-04-15 12:47 | MDS.RN ---
MDS Entry Tracker complete, pain assessed.
[2025-04-15] MEDS: 0.9% Saline Lock 10 ML Syringe IV ×2 (13:24→22:34)
[2025-04-15 13:28] VITALS: BP 162/91; PULSE 98
--- NOTE | 2025-04-15 15:14 | CASEMGMT ---
Social Work SW met with patient to complete initial assessment. Pt familiar with this worker from previous loved one's stays. Verified contacts. Patient confirmed code status as DNR-CCA, no intubation. Pt stated she has an assistant attorney general coming to see her this Monday to complete advance directives. Pt aware to provide copies to nurse's station. SW educated to [facility] insurance and review process. See assessment for barriers to DC. SW will continue to follow for DC planning and support. Bhavana Canada WALLCOVERING TEXTURER FISH FARM LABORER
[2025-04-15 19:35] VITALS: PULSE 96; O2SAT 95
[2025-04-15 22:32] VITALS: BP 173/81; PULSE 91
[2025-04-15 22:33] VITALS: PULSE 91
[2025-04-16 08:02] LABS: Anion Gap 12 (5-15); BUN 18 mg/dL (4-19); BUN/Creat Ratio 27.6 RATIO (10-20); Calcium,Total 9.7 mg/dL (7.6-11.0); Carbon Dioxide 30.1 mmol/L (21.0-32.0); Chloride 100 mmol/L (98-108); Estimated Creatinine Clearance 67.38 ml/min (50-250); Glucose 115 mg/dL (70-99); Potassium 3.5 mmol/L (3.3-5.1)
[2025-04-16 08:29] VITALS: PULSE 75
[2025-04-16] MEDS: Calcium Carb/Vitamin D 1 TABLET Tablet PO ×2 (08:29→17:54)
[2025-04-16] MEDS: Aspirin E.C. 81 MG Tablet PO (08:29)
[2025-04-16] MEDS: Tolterodine Tartrate 4 MG CAP.SA PO (08:29)
[2025-04-16] MEDS: Potassium Chloride Oral Tablet 20 MEQ PO (08:30)
[2025-04-16 08:37] VITALS: BP 163/92; PULSE 75; RESP 17; TEMP 36.8; O2SAT 97
[2025-04-16 22:16] VITALS: BP 153/87; PULSE 97
[2025-04-16 22:20] VITALS: PULSE 97
[2025-04-17 06:46] LABS: Anion Gap 12 (5-15); BUN 20 mg/dL (4-19); BUN/Creat Ratio 27.9 RATIO (10-20); Calcium,Total 9.4 mg/dL (7.6-11.0); Carbon Dioxide 28.8 mmol/L (21.0-32.0); Chloride 102 mmol/L (98-108); Estimated Creatinine Clearance 67.38 ml/min (50-250); Glucose 111 mg/dL (70-99); Potassium 3.2 mmol/L (3.3-5.1)
[2025-04-17] MEDS: Calcium Carb/Vitamin D 1 TABLET Tablet PO ×2 (07:59→17:50)
[2025-04-17] MEDS: Potassium Chloride Oral Tablet 20 MEQ PO ×2 (07:59→17:50)
[2025-04-17] MEDS: Aspirin E.C. 81 MG Tablet PO (07:59)
[2025-04-17 09:29] VITALS: BP 150/69; PULSE 90
[2025-04-17] MEDS: Tolterodine Tartrate 4 MG CAP.SA PO (09:29)
[2025-04-17 15:54] VITALS: BP 150/74; PULSE 90; RESP 18; O2SAT 95
[2025-04-17 16:00] VITALS: BP 157/92; TEMP 37.1
[2025-04-17 20:07] VITALS: BP 174/82; PULSE 88
[2025-04-17 20:12] VITALS: PULSE 88; RESP 18; O2SAT 96
[2025-04-17 20:21] VITALS: BP 174/82; PULSE 88; RESP 18; O2SAT 96
[2025-04-18 01:05] VITALS: BP 190/94; PULSE 91; RESP 18; O2SAT 97
[2025-04-18 01:15] VITALS: PULSE 90; RESP 18; O2SAT 98
--- NOTE | 2025-04-18 02:15 | NURSING ---
Addendum entered by Abby Cruz 04/18/25 08:03: Updated next of kin, Gwen Ladd, at 0751 regarding patient's fall and minor injury. Original Note: At 0100, patient utilized call light and asked for assistance. VETERINARY HOSPITAL ATTENDANT responded to call light immediately entering patient's room at 0101 and found patient on her hands and knees on the floor to the left side of her bed. VETERINARY HOSPITAL ATTENDANT yelled out for assistance, three RNs entered room for assistance. This nurse asked patient what she was doing prior to fall. Patient said, "I was sleeping and must have rolled out of bed in my sleep. I woke up once I felt the floor." Patient A/O x3 post-fall. BP 190/94, HR 91, SpO2 97% on RA, RR 18, and BS 109. Minor new injury to RFA- bleeding skin tear and bruising around the skin tear. Skin tear cleansed with NS and dressed with a Dry Dressing and LEYLA wrap to keep dressing in place. Patient denies hitting her head stating she rolled onto her hands and knees. New other injuries observed at this time. Staff assisted patient back to bed and positioned patient to comfort. Call light in reach, light left on in patient's room for visibility. Notified Apparel Cutter, Mady, of patient's fall.
[2025-04-18 06:19] LABS: Anion Gap 11 (5-15); BUN 17 mg/dL (4-19); BUN/Creat Ratio 26.0 RATIO (10-20); Calcium,Total 8.7 mg/dL (7.6-11.0); Carbon Dioxide 26.4 mmol/L (21.0-32.0); Chloride 102 mmol/L (98-108); Estimated Creatinine Clearance 67.38 ml/min (50-250); Glucose 118 mg/dL (70-99); Potassium 3.4 mmol/L (3.3-5.1)
--- NOTE | 2025-04-18 08:18 | RAD_ITS ---
PROCEDURE: L/S SPINE MIN 4 VIEWS 04/18/2025 REASON FOR EXAM: FALL, BACK PAIN, RECENT KYPHOPLASTY. TECHNIQUE: Procedure Code: RADSPLS Modality: DX Procedure: L/S SPINE MIN 4 VIEWS COMPARISON: Prior study dated April 10, 2025. FINDINGS: Curvature: No significant scoliosis. The patient is status post kyphoplasty of the L4 vertebrae. Multilevel disc space narrowing. Loss of height of the L2 vertebrae and L4 vertebrae. RAD/L/S Spine Min 4 Views IMPRESSION: Status post vertebroplasty of the L4 vertebrae. Stable loss of height of the L2 vertebrae. Reading Location: [facility]
[2025-04-18] MEDS: Potassium Chloride Oral Tablet 20 MEQ PO ×2 (09:04→16:50)
[2025-04-18] MEDS: Aspirin E.C. 81 MG Tablet PO (09:04)
[2025-04-18] MEDS: Tolterodine Tartrate 4 MG CAP.SA PO (09:05)
[2025-04-18 09:06] VITALS: BP 141/69; PULSE 78
[2025-04-18] MEDS: Calcium Carb/Vitamin D 1 TABLET Tablet PO ×2 (09:09→16:50)
--- NOTE | 2025-04-18 09:26 | NURSING ---
Roller Varnisher Note; Activity Asset: Complete Lula is independent in her choice of daily activities. Lula has had friends on TCU in the past and is familiar w/activities. She has her smartphone, tablet and books here for her entertainment. She will have friends visits, welcomes the process development manager and therapy dog when avaliable. Staff will remind her of weekly activities, and respect her right to say no.
[2025-04-18 16:00] VITALS: BP 160/83; PULSE 94; RESP 16; TEMP 37; O2SAT 95
[2025-04-18 22:49] VITALS: BP 157/79; PULSE 85
[2025-04-18] MEDS: Senna/Docusate Sodium 1 Tablet PO (22:49)
[2025-04-19 07:59] VITALS: PULSE 84
[2025-04-19] MEDS: Tolterodine Tartrate 4 MG CAP.SA PO (07:59)
[2025-04-19] MEDS: Calcium Carb/Vitamin D 1 TABLET Tablet PO ×2 (07:59→17:23)
[2025-04-19] MEDS: Potassium Chloride Oral Tablet 20 MEQ PO ×2 (07:59→17:22)
[2025-04-19] MEDS: Aspirin E.C. 81 MG Tablet PO (08:00)
[2025-04-19 08:05] VITALS: BP 186/98; PULSE 84; RESP 16; TEMP 36.7; O2SAT 95
[2025-04-19 18:28] VITALS: BP 160/92
[2025-04-19 20:25] VITALS: BP 156/74; PULSE 90
[2025-04-20 08:24] VITALS: PULSE 97
[2025-04-20] MEDS: Calcium Carb/Vitamin D 1 TABLET Tablet PO ×2 (08:25→16:46)
[2025-04-20] MEDS: Tolterodine Tartrate 4 MG CAP.SA PO (08:25)
[2025-04-20] MEDS: Potassium Chloride Oral Tablet 20 MEQ PO ×2 (08:25→16:46)
[2025-04-20] MEDS: Aspirin E.C. 81 MG Tablet PO (08:25)
[2025-04-20 08:32] VITALS: BP 157/92; PULSE 97; RESP 16; TEMP 36.6; O2SAT 98
[2025-04-20 19:50] VITALS: PULSE 95
[2025-04-21 07:54] VITALS: BP 151/93; PULSE 116; RESP 16; TEMP 36.9; O2SAT 95
[2025-04-21] MEDS: Aspirin E.C. 81 MG Tablet PO (07:57)
[2025-04-21] MEDS: Potassium Chloride Oral Tablet 20 MEQ PO ×2 (07:57→17:32)
[2025-04-21 07:58] VITALS: PULSE 116
[2025-04-21] MEDS: Tolterodine Tartrate 4 MG CAP.SA PO (07:58)
[2025-04-21] MEDS: Calcium Carb/Vitamin D 1 TABLET Tablet PO ×2 (07:58→17:32)
[2025-04-21] MEDS: Senna/Docusate Sodium 1 Tablet PO (08:01)
--- NOTE | 2025-04-21 08:47 | NURSING ---
Commodity Analyst Note; MDS for 04/21/2025 Complete
--- NOTE | 2025-04-21 12:22 | CASEMGMT ---
Social Work SW completed BIMS () and PHQ-2 () for MDS assessment. Pt requested to DC Monday. SW to discuss with IDT and update pt. POC meeting is scheduled for 04/23. Bhavana Canada MSW MEDICAL RESEARCH TECH
--- NOTE | 2025-04-21 12:45 | NURSING ---
Offered covid vaccine, VIS provided. Resident declines.
[2025-04-21 21:48] VITALS: PULSE 85
[2025-04-22 05:54] LABS: Hematocrit 36.5 % (37-47); Hemoglobin 10.7 g/dL (12.0-15.0); Immature Granulocytes Count 0.030 X10^3/uL (0.0-0.0); Mean Corp Hgb Conc 29.3 g/dL (32-36); Mean Corpuscular Volume 71.7 fL (81-99); Mean Platelet Vol. 10.2 fl (6.2-12.0); NRBC Flagged by Analyzer 0 % (0-5); Platelet Count 376 K/mm3 (150-450); RBC Distribution Width CV 18.6 % (11.6-14.6); RBC Distribution Width SD 46.8 fl (35.1-43.9); Red Blood Count 5.09 M/mm3 (4.2-5.4); White Blood Count 7.5 K/mm3 (4.4-11.0)
[2025-04-22 06:21] LABS: Anion Gap 21 (5-15); BUN 19 mg/dL (4-19); BUN/Creat Ratio 25.0 RATIO (10-20); Calcium,Total 8.9 mg/dL (7.6-11.0); Carbon Dioxide 14.9 mmol/L (21.0-32.0); Chloride 103 mmol/L (98-108); Estimated Creatinine Clearance 67.38 ml/min (50-250); Glucose 94 mg/dL (70-99); Potassium 4.2 mmol/L (3.3-5.1)
[2025-04-22] MEDS: Calcium Carb/Vitamin D 1 TABLET Tablet PO ×2 (08:11→17:54)
[2025-04-22] MEDS: Aspirin E.C. 81 MG Tablet PO (08:11)
[2025-04-22 08:12] VITALS: BP 143/59; PULSE 78
[2025-04-22] MEDS: Tolterodine Tartrate 4 MG CAP.SA PO (08:12)
[2025-04-22 08:18] VITALS: BP 143/59; PULSE 78; RESP 18; TEMP 36.8; O2SAT 95
[2025-04-22] MEDS: Tuberculin,Purif.prot.deriv. 50 TU/ML Vial 0.1 ML ID (11:46)
[2025-04-22 12:45] VITALS: PULSE 78; RESP 18; O2SAT 95
[2025-04-22 21:46] VITALS: PULSE 80
[2025-04-22] MEDS: Senna/Docusate Sodium 1 Tablet PO (21:47)
[2025-04-23 08:18] VITALS: PULSE 85
[2025-04-23] MEDS: Tolterodine Tartrate 4 MG CAP.SA PO (08:18)
[2025-04-23] MEDS: Aspirin E.C. 81 MG Tablet PO (08:18)
[2025-04-23] MEDS: Calcium Carb/Vitamin D 1 TABLET Tablet PO ×2 (08:18→16:50)
[2025-04-23 08:20] VITALS: BMI 36.3
[2025-04-23 08:38] VITALS: BP 176/90; PULSE 85; RESP 15; TEMP 36.6; O2SAT 94
--- NOTE | 2025-04-23 10:53 | CASEMGMT ---
Social Work IDT met with patient for care plan meeting. Discussed patient's progress in PT/OT/SN/RDN. [facility] with NRD 04/29 and continued stay is not guaranteed with each review. Pt is progressing well and requesting to DC. IDT agreeable. Pt requested to DC 04/25. SW to coordinate skilled HHC. SW offered list of choices but pt declined and would like to use [facility]. Pt denied DME needs and will have a friend transport. - MELLO phoned referral to [facility] for PT/OT/[place] Plan: DC home 04/25, [facility] PT/OT/WALTON Bhavana Canada MSW SERVICE DELIVERY DIRECTOR
--- NOTE | 2025-04-23 19:30 | DS.PCM_ITS ---
Providers Date of Admission: 04/14/25 Primary Care Physician: Dr. Jad Pederson MD Reason For Visit: COMPRESSION FRACTURE Diagnosis Discharge Diagnosis (1) Debility: Status: Acute Code(s): R53.81 - Other malaise (2) Compression fracture of L4 vertebra: Status: Acute Code(s): S32.040A - Wedge compression fracture of fourth lumbar vertebra, initial encounter for closed fracture Qualifiers: Encounter type: initial encounter Qualified Code(s): S32.040A - Wedge compression fracture of fourth lumbar vertebra, initial encounter for closed fracture (3) Compression fracture of L2: Status: Acute Code(s): S32.020A - Wedge compression fracture of second lumbar vertebra, initial encounter for closed fracture Qualifiers: Encounter type: sequela Qualified Code(s): S32.020S - Wedge compression fracture of second lumbar vertebra, sequela (4) Status post kyphoplasty: Status: Acute Code(s): Z98.890 - Other specified postprocedural states (5) HTN (hypertension): Status: Chronic Code(s): I10 - Essential (primary) hypertension (6) Hyperlipidemia: Status: Acute Code(s): E78.5 - Hyperlipidemia, unspecified (7) Depression: Status: Acute Code(s): F32.A - Depression, unspecified (8) GERD (gastroesophageal reflux disease): Status: Acute Code(s): K21.9 - Gastro-esophageal reflux disease without esophagitis (9) Anxiety: Status: Acute Code(s): F41.9 - Anxiety disorder, unspecified (10) Overactive bladder: Status: Acute Code(s): N32.81 - Overactive bladder Plan 74 year old female with below past medical history hospitalized for intractable low back pain 2/2 L4 compression fracture, underwent L4 kyphoplasty 04/10/[address] Fitch, admitted to TCU with debility, here for rehabilitation, strengthening, prior to discharge home with roommate. * Debility - PT/OT. * Pain - Tylenol 1000mg q6 prn pain (1-10). * Bowel - senna/colace 1 tablet bid, Magnesium citrate 300mL daily prn. * Adult immunization - Administer pneumonia vaccine, covid vaccine, flu vaccine as appropriate. * DVT prophylaxis - Lovenox 40mg sc daily. * Hypertension - Lisinopril 40mg daily, Amlodipine 5mg daily. * CV prophylaxis - Aspirin 81mg daily. * Hyperlipidemia - Atorvastatin 20mg qhs. * Calcium deficiency - Calciun D 1 tablet bid. * GERD - Pantoprazole 20mg daily. * Overactive bladder - Tolterodine 4mg daily. The following psychotropic medication was present on admission: Citalopram 40mg daily. Psychotropic medication therapy is indicated for a diagnosis of: Major Depression. Based on my clinical evaluation, continuation of the medication is necessary at this time. Gradual dose reduction plan (select one): ____ GDR will be attempted. Will monitor patient symptoms and behaviors in response to GDR. __x__ GRD contraindicated. Reason contraindicated: stable chronic long term care pharmacist use. Medications at Discharge Home Medications citalopram 40 mg tablet 40 mg PO DAILY depression 07/06/18 omeprazole 20 mg capsule,delayed release 20 mg PO DAILY GERD 07/06/18 aspirin 81 mg tablet 81 mg PO DAILY heart 04/08/25 atorvastatin 20 mg tablet 20 mg PO QHS cholesterol #0 tabs 04/14/25 calcium 500 mg (as carbonate)-vitamin D3 5 mcg (200 unit) tablet (Oyster Shell Calcium-Vitamin D3) 1 tab PO BIDCM supplement #0 tabs 04/14/25 acetaminophen 500 mg tablet 1,000 mg (2 x 500 mg) PO Q6H PRN PRN Pain Score 1-10 #0 tabs 04/23/25 amlodipine 10 mg tablet 10 mg PO DAILY 30 days #30 tabs 04/23/25 losartan 100 mg tablet 100 mg PO DAILY 30 days #30 tabs 04/23/25 metoprolol tartrate 25 mg tablet 25 mg PO BID 30 days #60 tabs 04/23/25 potassium chloride 20 mEq tablet,extended release(part/cryst) 20 meq PO DAILYCM 30 days #30 tabs 04/23/25 tolterodine 4 mg capsule,extended release 24 hr 4 mg PO DAILY 30 days #30 caps 04/23/25 Hospital Course Operations None Procedures - (Kyphoplasty.) Summary of Care Provided Minutes Spent on Discharge: 35 Hospital Course: 74 year old female with below past medical history hospitalized for intractable low back pain 2/2 L4 compression fracture, underwent L4 kyphoplasty 04/10/[address] Fithc, admitted to TCU with debility, here for rehabilitation, strengthening, prior to discharge home with roommate. Discharge home 04/25/2025, [facility] PT/OT/WALTON. Physical Exam Const alert General Appearance: cooperative HEENT normocephalic Eyes PERRL and EOMs intact bilaterally Neck supple, no JVD and no carotid bruits Resp normal respiratory effort, normal air movement and clear to auscultation bilaterally Cardio regular rate and regular rhythm GI normal to inspection, nondistended, normoactive bowel sounds, non-tender and non-distended Extremity normal capillary refill General Extremity: Negative for edema Skin no rashes or lesions noted General Skin Exam: no breakdown Psych affect normal Appearance: appropriate Weight / BMI Weight Weight: 93.168 kg Body Mass Index (BMI) 36.3 ABG / Lab / Microbiology Data 04/22/25 05:05 04/22/25 05:05 D/C Instructions Discharge Activity: Return to Normal Activity, May Shower and Use Walker Weight Bearing Status: Weight bearing as tolerated Call your doctor if you observe: Fever of 101 or Higher, Inability to urinate, Inability to have a bowel movement, Shortness of breath, Dizziness, Fainting spells, Swelling in the ankles, Chest pain and Uncontrolled pain DC O2, CPAP, BIPAP Needs Home O2 Discharge instructions: No Additional Instructions: Discharge home 04/25/2025, [facility] PT/OT/WALTON. Meaningful Use Info Meaningful Use Meaningful Use Diagnoses (Choose all that apply): None applicable Discharge Plan Admission Admit Date/Time: 04/14/25 16:45 Primary Reason for Your Visit: Debility. Attending Provider: Bola Centeno Chi Primary Care Provider: Jad Pederson Instructions Additional Instructions / Restrictions: Discharge home 04/25/2025, [facility] PT/OT/WALTON. Discharge Orders/Prescriptions Prescriptions: New acetaminophen 500 mg Tablet 1,000 mg PO Q6H PRN PRN (Reason: Pain Score 1-10) Qty: 0 0RF tolterodine 4 mg Capsule,Extended Release 24hr 4 mg PO DAILY 30 Days Qty: 30 0RF potassium chloride 20 mEq Tablet,Er Particles/Crystals 20 meq PO DAILYCM 30 Days Qty: 30 0RF amlodipine 10 mg Tablet 10 mg PO DAILY 30 Days Qty: 30 0RF losartan 100 mg Tablet 100 mg PO DAILY 30 Days Qty: 30 0RF metoprolol tartrate 25 mg Tablet 25 mg PO BID 30 Days Qty: 60 0RF Continued citalopram 40 MG tablet 40 mg PO DAILY omeprazole 20 MG capsule 20 mg PO DAILY aspirin 81 mg tablet 81 mg PO DAILY calcium carbonate-vitamin D3 [Oyster Shell Calcium-Vit D3] 500 mg-5 mcg (200 unit) Tablet 1 tab PO BIDCM Qty: 0 0RF atorvastatin 20 mg Tablet 20 mg PO QHS Qty: 0 0RF Discontinued oxybutynin chloride 15 mg tablet extended release 24hr 15 mg PO DAILY amlodipine 5 mg Tablet 5 mg PO DAILY Qty: 0 0RF acetaminophen 325 mg Tablet 650 mg PO Q6H PRN PRN (Reason: Pain 1-10 Or Fever >100.7) Qty: 0 0RF lisinopril 20 MG tablet 40 mg PO DAILY 30 Days Qty: 60 0RF Referrals / Follow Up: Jad Pederson MD [Primary Care Provider, Family Practice] Disposition Disposition (needs filled in before D/C Order can be placed): Home Health Service
[2025-04-23 21:45] VITALS: BP 137/78; PULSE 95
[2025-04-23 21:47] VITALS: PULSE 95
[2025-04-24 04:13] VITALS: PULSE 82; O2SAT 96
[2025-04-24] MEDS: Aspirin E.C. 81 MG Tablet PO (09:28)
[2025-04-24 09:29] VITALS: BP 133/73; PULSE 90
[2025-04-24] MEDS: Calcium Carb/Vitamin D 1 TABLET Tablet PO ×2 (09:29→17:26)
[2025-04-24] MEDS: Tolterodine Tartrate 4 MG CAP.SA PO (09:29)
[2025-04-24 09:42] VITALS: BP 133/75; PULSE 90; RESP 18; TEMP 36.4; O2SAT 93
--- NOTE | 2025-04-24 14:23 | MDS.RN ---
Information for the MDS was obtained from review of the clinical record, interview of resident, staff, and direct observation of resident’s care.
[2025-04-24 20:43] VITALS: BP 144/79; PULSE 85
[2025-04-24 20:45] VITALS: BP 144/79; PULSE 85
--- NOTE | 2025-04-25 03:43 | NURSING ---
Patient A/O x3, no impulsive behaviors observed. Patient uses call light appropriately for assistance throughout the day and night. Alarms DC'd at this time.
[2025-04-25 04:19] VITALS: PULSE 72; RESP 16; O2SAT 98
[2025-04-25 08:13] VITALS: BP 158/79; PULSE 83; RESP 18; TEMP 36.4; O2SAT 94
[2025-04-25] MEDS: Calcium Carb/Vitamin D 1 TABLET Tablet PO (08:15)
[2025-04-25 08:16] VITALS: PULSE 83
[2025-04-25] MEDS: Tolterodine Tartrate 4 MG CAP.SA PO (08:16)
[2025-04-25] MEDS: Aspirin E.C. 81 MG Tablet PO (08:16)
--- NOTE | 2025-04-25 10:21 | CASEMGMT ---
Social Work SW completed BIMS () and PHQ-2 () for MDS assessment. Bhavana Canada INSPECTOR GOVERNMENT PROPERTY PATTERN MECHANIC
[2025-04-25 11:40] VITALS: BP 134/74; PULSE 78; RESP 18; TEMP 36.4; O2SAT 94
== END 2025-04-25 11:45 | disposition home health service (06) | DRG 561 ==
PROVIDERS: Admitting Provider Family Medicine Geriatric Medicine; PCP Family Medicine; Visit Provider Family Medicine Geriatric Medicine
DX: S32.040D Wedge compression fracture of fourth lumbar vertebra, subsequent encounter for fracture with routine healing (principal); E58 Dietary calcium deficiency; F32.9 Major depressive disorder, single episode, unspecified; I10 Essential (primary) hypertension; K21.9 Gastro-esophageal reflux disease without esophagitis; E78.00 Pure hypercholesterolemia, unspecified; F41.9 Anxiety disorder, unspecified; W19.XXXD Unspecified fall, subsequent encounter; S32.020D Wedge compression fracture of second lumbar vertebra, subsequent encounter for fracture with routine healing; N32.81 Overactive bladder; Z79.899 Other long term (current) drug therapy; R32 Unspecified urinary incontinence; Z79.82 Long term (current) use of aspirin
CPT/HCPCS: 36415; 72110; 80048; 82962; 85025; 97110; 97116; 97162; 97166; 97530; 97535; 97802; A4216